=== PATIENT | male | born 1965 | race Caucasian/White ===

== ENCOUNTER 2021-10-23 09:14 | Inpatient (IN) ==
[2021-10-23] MEDS ORDERED: MoRPHine SULFATE 4 MG/ML 1 ML CARP\\VIAL IV STA ×2 (09:35→12:58)
--- NOTE | 2021-10-23 09:40 | Emergency Department Note ---
History of Present Illness General Chief complaint: Shortness of Breath/Dyspnea Time Seen by Provider: 10/23/21 09:25 Source: patient and EMS Mode of arrival: EMS Limitations: physical limitation History of Present Illness Provider complaint: chest pain, shortness of breath Onset (ago): month(s) 1 Location: chest Radiation: non-radiation Treatments prior to arrival: other This is a 56-year-old male who presents due to concern for ongoing chest pain and shortness of breath. Patient states chest pain began over a month ago. Patient does have a history of lung cancer with known metastases to the brain. Per EMS report, stated the patient's last chemo or radiation treatment were in September. Patient states that been his least 2 weeks since he had radiation. Patient is a prior smoker with a history of COPD in addition. Patient does use oxycodone at home daily, and states this was also recently increased however he still has worsening pain. EMS reported to nursing staff that told them he is supposed to start hospice next week. Patient denies fevers, abdominal pain, cough, or rhinorrhea. Patient denies any leg swelling. Patient does have an indwelling port. Pt seen during a time of high acuity and national emergency pandemic while wearing PPE. Home Medications Medication Instructions Recorded Confirmed Type chlorthalidone 25 mg tablet 25 mg PO QAM 10/23/21 10/23/21 History oxycodone 30 mg tablet 30 mg PO .Q4-6H PRN 10/23/21 10/23/21 History prednisone 20 mg tablet 50 mg PO DAILY 10/23/21 10/23/21 History Allergies Allergy/AdvReac Type Severity Reaction Status Date / Time codeine Allergy Unknown unknown Verified 10/23/21 11:23 Past Med/Surg History Medical History Anxiety Brain metastases Chronic obstructive pulmonary disease Coronary artery calcification "noted on CT chest 12/09/20" Depression Diabetes mellitus, type 2 diet controlled Hypertension Lung cancer Small cell lung cancer - dx'ed Sep 2020- and needs port placed for chemo Currently on chemo/XRT Surgical History H/O gastric bypass "x 2" History of mandibular surgery Hx of lymph node excision from leg Family History Father Cancer Stomach Ca Diabetes Heart disease Hypertension Stroke Mother Diabetes Brother Diabetes Other Asthma Emphysema lung Lung disease No known problems Social History Smoking Status: Never smoker Tobacco Type: Cigarettes packs per day: 0.5; Years Smoked: 45; Cigarettes Per Day: 4-5 cigs/day; Second Hand Exposure: No; Do You Dip or Chew Tobacco: No; Hx Alcohol Use: Yes Hx Substance Use: No Preferred Language: British Communication Ability: Effective Visual Impairment: No Limitations Hearing Ability: Normal Exchange Consultant Required: No Beliefs That Will Affect Care: None marital status: Current Living Situation: Family current occupational status: unemployed How many Children do You have: 3 Other Information That Helps Us Care for You: No Feels Safe at Home: Yes Safety Concerns: Feels Safe At This Time Childhood Exposure to Second-Hand Smoke: Yes caffeine: No during the past year weight has: increased > 10 lbs Dental Care, Regularly: No Physical Activity Frequency: Daily Assistive Devices: Walker Review of Systems A total of 10 systems reviewed and were otherwise negative All systems reviewed & are unremarkable except as noted in HPI & below Physical Exam Vital Signs Vital Signs - 24 hr 10/23/21 09:20 10/23/21 09:40 10/23/21 10:26 Temperature 36.8 C Temperature Source Oral Pulse Rate 80 79 Pulse Rate [Right Finger] Pulse Rate from SpO2 Sensor Pulse Rhythm Regular Pulse Rhythm [Right Finger] Pulse Strength Normal Pulse Strength [Right Finger] Respiratory Rate 26 H 18 Respiratory Effort / Characteristics Spontaneous Accessory Muscle Use Moaning Short of Breath Respiratory Depth Normal Respiratory Pattern Regular Tachypnea Blood Pressure 110/71 152/79 H Blood Pressure [Right Arm] Blood Pressure Mean 84 103 Blood Pressure Mean [Right Arm] Blood Pressure Position Sitting Blood Pressure Position [Right Arm] Pulse Oximetry 97 97 95 Oxygen Delivery Method Room Air Room Air Room Air Sepsis Recent Fever Within 48 Hours No Sepsis New/Unexplained Change in Mental Status No Sepsis Action Taken by Nursing No Action Required 10/23/21 10:30 10/23/21 11:00 10/23/21 12:00 Temperature Temperature Source Pulse Rate 82 83 Pulse Rate [Right Finger] 74 Pulse Rate from SpO2 Sensor 82 85 Pulse Rhythm Pulse Rhythm [Right Finger] Regular Pulse Strength Pulse Strength [Right Finger] Normal Respiratory Rate 20 22 18 Respiratory Effort / Characteristics Non-Labored Respiratory Depth Normal Respiratory Pattern Regular Blood Pressure 129/91 150/84 H Blood Pressure [Right Arm] 116/74 Blood Pressure Mean 103 106 Blood Pressure Mean [Right Arm] 88 Blood Pressure Position Blood Pressure Position [Right Arm] Lying Pulse Oximetry 92 95 91 Oxygen Delivery Method Room Air Room Air Room Air Sepsis Recent Fever Within 48 Hours Sepsis New/Unexplained Change in Mental Status Sepsis Action Taken by Nursing GENERAL: alert, unwell appearing, well nourished, no distress, non-toxic EYE EXAM: normal conjunctiva, PERRL and EOM's grossly intact OROPHARYNX: no exudate, no erythema, lips, buccal mucosa, and tongue normal and mucous membranes are moist NECK: supple, no nuchal rigidity, no adenopathy, non-tender LUNGS: Clear to auscultation. Normal chest wall mechanics, no w/r/r, mild tachypnea HEART: no murmurs, S1 normal and S2 normal, pain with palpation to central and l eft chest, port left ant/sup chest wall ABDOMEN: abdomen soft, non-tender, normo-active bowel sounds, no masses, no rebound or guarding. BACK: Back is symmetrical on inspection and there is no deformity, no midline tenderness, no CVA tenderness. SKIN: no rashes and no bruising UPPER EXTREMITIES: upper extremities are grossly normal. FROM, nml pulses b/l. LOWER EXTREMITIES: No pitting edema. FROM, nml pulses b/l. NEURO EXAM: Normal sensorium, cranial nerves II-XII grossly intact, normal spee ch, no gross weakness of arms, no gross weakness of legs. Gross sensation intact. Course Administered Medications Chlorthalidone (Chlorthalidone 25 Mg Tab) 25 mg PO QAM [facility] Stop: 11/23/21 08:59 Last Admin: 10/24/21 08:59 Dose: 25 mg Documented by: [id number] Enoxaparin Sodium (Enoxaparin Inj 120 Mg/0.8 Ml Syr) 111 mg SQ Q12H [facility] Stop: 11/23/21 00:59 Last Admin: 10/24/21 14:43 Dose: 111 mg Documented by: [id number] Admin: 10/24/21 00:59 Dose: 111 mg Documented by: [id number] Fentanyl (Fentanyl 25 Mcg/Hr Tdsy) 25 mcg TD Q3D CAROL Stop: 11/06/21 15:59 Last Admin: 10/23/21 16:16 Dose: 25 mcg Documented by: [id number] Miscellaneous (Check Fentanyl Patch Placement) 1 ea N/A QS [facility] Stop: 11/23/21 00:00 Last Admin: 10/24/21 15:53 Dose: 1 ea Documented by: [id number] Admin: 10/24/21 07:26 Dose: 1 ea Documented by: [id number] Admin: 10/23/21 23:30 Dose: 1 ea Documented by: [id number] Morphine Sulfate (Morphine Sulfate 2 Mg/Ml Carp) 2 mg IV Q4H PRN PRN Reason: Pain Stop: 11/07/21 17:40 Last Admin: 10/24/21 18:04 Dose: 2 mg Documented by: [id number] Oxycodone HCl (Oxycodone Hcl Ir 5 Mg Tab (Immediate Release)) 20 mg PO Q6H PRN PRN Reason: Pain Stop: 11/06/21 21:59 Last Admin: 10/24/21 19:53 Dose: 20 mg Documented by: [id number] Admin: 10/24/21 13:03 Dose: 20 mg Documented by: [id number] Admin: 10/23/21 22:11 Dose: 20 mg Documented by: [id number] Prednisone (Prednisone 50 Mg Tab) 50 mg PO DAILY [facility] Stop: 11/23/21 08:59 Last Admin: 10/24/21 08:59 Dose: 50 mg Documented by: [id number] Discontinued Medications Enoxaparin Sodium (Enoxaparin Inj 120 Mg/0.8 Ml Syr) 120 mg SQ ONE ONE Stop: 10/23/21 13:31 Last Admin: 10/23/21 13:49 Dose: 120 mg Documented by: [id number] Gadobutrol (Gadobutrol 65ml Vial) 11.2 ml IV ONCE ONE Stop: 10/23/21 17:24 Last Admin: 10/23/21 17:23 Dose: 11.2 ml Documented by: [id number] Heparin Sodium (Beef Lung) (Heparin 10 Unit/Ml 5 Ml Flush) Confirm Administered Dose 5 ml FLUSH .STK-MED ONE Stop: 10/24/21 02:11 Last Admin: 10/24/21 03:02 Dose: 5 ml Documented by: [id number] Hydromorphone HCl (Hydromorphone Bolus From [employer] Verifier) 1 mg IV ONE STA Stop: 10/23/21 14:53 Last Admin: 10/23/21 16:01 Dose: Not Given Documented by: [id number] Sodium Chloride (Nss 1000ml) 1,000 mls @ 125 mls/hr IV .Q8H CAROL Stop: 11/22/21 09:44 Last Infusion: 10/24/21 07:10 Dose: 0 mls/hr Documented by: [id number] Admin: 10/23/21 18:51 Dose: 125 mls/hr Documented by: [id number] Infusion: 10/23/21 18:51 Dose: 0 mls/hr Documented by: [id number] Admin: 10/23/21 10:28 Dose: 125 mls/hr Documented by: [id number] Ioversol (Optiray 320 125ml) 120 ml IV ONCE ONE Stop: 10/23/21 11:40 Last Admin: 10/23/21 11:39 Dose: 120 ml Documented by: [id number] Morphine Sulfate (Morphine Sulfate 4 Mg/Ml 1 Ml Carp\\Vial) 4 mg IV NOW STA Stop: 10/23/21 09:36 Last Admin: 10/23/21 10:27 Dose: 4 mg Documented by: [id number] Morphine Sulfate (Morphine Sulfate 4 Mg/Ml 1 Ml Carp\\Vial) 4 mg IV NOW STA Stop: 10/23/21 12:59 Last Admin: 10/23/21 13:05 Dose: 4 mg Documented by: [id number] Oxycodone HCl (Oxycodone Hcl Ir 5 Mg Tab (Immediate Release)) 30 mg PO ONE STA Stop: 10/23/21 15:50 Last Admin: 10/23/21 16:40 Dose: 30 mg Documented by: [id number] Medical Decision Making Differential Diagnosis Differential diagnoses includes but is not limited to acute coronary syndrome, myocardial infarction, pericarditis, pulmonary embolus, aortic dissection, pneumonia, pneumothorax, musculoskeletal, shingles, esophageal. Medical Records Attestation: I reviewed the patient's medical records. Home Medications Current Medication List: was personally reviewed by me Laboratory Data Attestation: I reviewed the patient's lab results. Result diagrams: 10/24/21 01:02 10/24/21 01:02 Lab Results 10/23/21 10/23/21 10/23/21 Range/Units 09:40 09:40 10:21 WBC 6.51 (4.8-10.8) K/uL RBC 4.18 L (4.7-6.1) M/uL Hgb 12.3 L (14.0-18.0) g/dL Hct 36.0 L (42-52) % MCV 86.1 (80-100) fL MCH 29.4 (25-34) pg MCHC 34.2 (32-36) g/dL RDW Std Deviation 49.7 H (36.4-46.3) fL RDW Coeff of Harris 15.7 H (11.5-14.5) % Plt Count 251 (130-400) K/uL MPV 8.9 (7.4-10.4) fL Immature Gran % (Auto) 0.5 % Neut % (Auto) 73.2 % Lymph % (Auto) 16.7 % [place] % (Auto) 8.4 % Eos % (Auto) 0.9 % Baso % (Auto) 0.3 % Neut # (Auto) 4.76 (1.4-6.5) K/uL Lymph # (Auto) 1.09 L (1.2-3.4) K/uL [place] # (Auto) 0.55 (0.11-0.59) K/uL Eos # (Auto) 0.06 (0-0.5) K/uL Baso # (Auto) 0.02 (0-0.2) K/uL Immature Gran # (Auto) 0.03 H (0.00-0.02) K/uL Sodium 134 L (136-145) mmol/L Potassium 3.6 (3.5-5.1) mmol/L Chloride 102 (98-107) mmol/L Carbon Dioxide 22 (21-32) mmol/L Anion Gap 10 (3-11) BUN 21 (6-23) mg/dl Creatinine 0.89 (0.6-1.4) mg/dl Est Cr Clr Drug Dosing Not Reportable Est GFR ( Amer) 110.0 ml/min Est GFR (Non-Af Amer) 94.9 ml/min BUN/Creatinine Ratio 23.6 H (10-20) Glucose 107 H (70-99(Fasting)) mg/dl Calcium 9.4 (8.5-10.1) mg/dl Total Bilirubin 0.7 (0.2-1.0) mg/dl AST 14 (13-39) U/L ALT 10 (7-52) U/L Alkaline Phosphatase 65 (34-104) U/L Troponin I 0.04 (0-0.04) ng/ml B-Natriuretic Peptide 34 (0-100) pg/ml Total Protein 7.0 (6.0-8.3) gm/dl Albumin 4.1 (3.4-5.0) gm/dl Globulin 2.9 (2.5-4.0) gm/dl Albumin/Globulin Ratio 1.4 (0.9-2) Imaging Data Radiologist's Impression: Chest CTA 10/23/21 09:35 CHEST CTA for PULMONARY ARTERIES CT DOSE: 746.84 mGy.cm HISTORY: PE, history of lung cancer, atypical chest pain TECHNIQUE: Multiaxial CT images of the chest were performed following the intravenous administration of contrast to evaluate the pulmonary arteries. Maximal intensity projection images were also obtained. A dose lowering techniq ue was utilized adhering to the principles of ALARA. COMPARISON STUDY: Chest CT 09/30/2021. FINDINGS: A left jugular Port-A-Cath terminates in the distal SVC. Normal caliber thoracic aorta with no evidence for dissection. The heart remains mildly enlarged. Moderate calcified plaque within the coronary arteries. There is a small nonocclusive filling defect seen within a branch point of a right lower lobe segmental/subsegmental pulmonary artery best seen on image 88. This has consistent with a small pulmonary embolus. This is age indeterminate but favors a chronic embolus. No additional filling defects within the remaining pulmonary arteries. Limited views of the upper abdomen demonstrate a normal liver and spleen. Postoperative changes suggesting a prior gastric bypass. Trace left pleural effusion, unchanged. The thyroid gland enhances normally. Normal esophagus. Subcentimeter mediastinal and right hilar lymph nodes do not meet CT criteria for pathologic involvement. Mild left hilar/perihilar soft tissue thickening remains unchanged. This results in mild mass effect along the proximal left pulmonary arteries. This is also similar to the prior study. No suspicious lytic are blastic osseous lesions. Mild diffuse bronchial wall thick ening, left greater than right, unchanged. Mild emphysema. No pneumothorax. Multifocal irregular airspace opacities within the left lung have slightly improved. Dominant left lower lobe opacity currently measures 5 cm, previous measuring 5.7 cm. IMPRESSION: 1. There is a single nonocclusive filling defect seen within a right lower lobe segmental/subsegmental pulmonary. This is consistent with an age-indeterminate pulmonary embolus. 2. Scattered irregular airspace opacities within the left lung have slightly improved. This is nonspecific but could represent post radiation changes. Mild left hilar soft tissue thickening remains unchanged. This may also represent posttreatment changes. This bears watching on future examinations. 3. Trace left pleural effusion, unchanged. 4. The right lung appears clear. ACT 112: Negative or not required by law. Electronically signed by: Jeremy Crawley M.D. 10/23/2021 12:15 PM ECG Data Attestation: I personally reviewed and interpreted this ECG as follows: Indication: + chest pain Rate (beats per minute): 81 Rhythm: + normal sinus ECG Intervals/blocks: + Normal QRS and + Normal QT ECG [place]: + Normal ECG ST segments: + Normal ST segments MDM Narrative An order was placed for continuous cardiac monitoring. The monitor shows a rate of _101__ with _sinus tachycardia__ rhythm. THis is a 56 yo with known metastatic lung ca having recently finished radiation for brain mets with c/o chest pain for several week. Patient did have a CT several weeks ago after an injury to r/o trauma. Patient ill appearing on presentation but VS stable. Labs sent and due to broad ddx given PMHx, pt sent for CT angio chest. This revealed pe which may be subacute. Patient started on lovenox given malignancy. Given persistent pain in this setting and this being a complicated patient with some consideration for palliative care consult in addition, case discussed with hospitalist. All results discussed with pt and at bedside who verbalized understanding and were in agreement with the plan. Impression & Plan Chest pain, Small cell lung cancer in adult, Pulmonary embolism Discharge Plan Visit Data Chief Complaint: Shortness of Breath/Dyspnea ED Provider: Ana Jaramillo Discharge Problem: Chest pain, Small cell lung cancer in adult, Pulmonary embolism Patient Disposition: Admitted As Inpatient Discharge Instructions Interventions: ED Discharge Assessment Last Done: 10/23/21 15:59 Discharge Problem: Chest pain Qualifiers: Chest pain type: unspecified Qualified Code(s): R07.9 - Chest pain, unspecified Pulmonary embolism Qualifiers: Pulmonary embolism type: single subsegmental (without acute cor pulmonale) Qualified Code(s): I26.93 - Single subsegmental pulmonary embolism without acute cor pulmonale
[2021-10-23 09:54] LABS: Basophils # (auto) 0.02 K/uL (0-0.2); Basophils % (auto) 0.3 %; Eosinophils # (auto) 0.06 K/uL (0-0.5); Eosinophils % (auto) 0.9 %; Hemoglobin 12.3 g/dL (14.0-18.0); Immature Granulocytes # (auto) 0.03 K/uL (0.00-0.02); Immature Granulocytes % (auto) 0.5 %; Lymphocytes # (auto) 1.09 K/uL (1.2-3.4); Lymphocytes % (auto) 16.7 %; Mean Corpuscular Hemoglobin 29.4 pg (25-34); Mean Corpuscular Hgb Conc 34.2 g/dL (32-36); Mean Corpuscular Volume 86.1 fL (80-100); Mean Platelet Volume 8.9 fL (7.4-10.4); Monocytes # (auto) 0.55 K/uL (0.11-0.59); Monocytes % (auto) 8.4 %; Neutrophils # (auto) 4.76 K/uL (1.4-6.5); Neutrophils % (auto) 73.2 %; Platelet Count 251 K/uL (130-400); RDW Coefficient of Variation 15.7 % (11.5-14.5); RDW Standard Deviation 49.7 fL (36.4-46.3); Red Blood Count 4.18 M/uL (4.7-6.1); White Blood Count 6.51 K/uL (4.8-10.8)
[2021-10-23 10:17] LABS: Troponin I 0.04 ng/ml (0-0.04)
[2021-10-23] MEDS: SODIUM CHLORIDE 0.9% 1000ML 1,000 ML IV SCH ×2 (10:28→18:51)
[2021-10-23 10:32] LABS: Alanine Aminotransferase 10 U/L (7-52); Albumin Globulin Ratio 1.4 (0.9-2); Albumin Level 4.1 gm/dl (3.4-5.0); Alkaline Phosphatase 65 U/L (34-104); Anion Gap 10 (3-11); Aspartate Aminotransferase 14 U/L (13-39); BUN Creatinine Ratio 23.6 (10-20); Bilirubin,Total 0.7 mg/dl (0.2-1.0); Blood Urea Nitrogen 21 mg/dl (6-23); Calcium 9.4 mg/dl (8.5-10.1); Carbon Dioxide 22 mmol/L (21-32); Chloride 102 mmol/L (98-107); Est GFR (Non-African American) 94.9 ml/min; Globulin 2.9 gm/dl (2.5-4.0); Glucose 107 mg/dl (70-99(Fasting)); Potassium 3.6 mmol/L (3.5-5.1); Sodium 134 mmol/L (136-145)
[2021-10-23] MEDS ORDERED: OPTIRAY 320 125ml IV ONE (11:39)
--- NOTE | 2021-10-23 12:16 | CT Scan Report ---
CHEST CTA for PULMONARY ARTERIES CT DOSE: 746.84 mGy.cm HISTORY: PE, history of lung cancer, atypical chest pain TECHNIQUE: Multiaxial CT images of the chest were performed following the intravenous administration of contrast to evaluate the pulmonary arteries. Maximal intensity projection images were also obtaine d. A dose lowering technique was utilized adhering to the principles of ALARA. COMPARISON STUDY: Chest CT 09/30/2021. FINDINGS: A left jugular Port-A-Cath terminates in the distal SVC. Normal caliber thoracic aorta with no evidence for dissection. The heart remains mildly enlarged. Moderate calcified plaque within the coronary arteries. There is a small nonocclusive filling defect seen within a branch point of a right lower lobe segmental/subsegmental pulmonary artery best seen on image 88. This has consistent with a small pulmonary embolus. This is age indeterminate but favors a chronic embolus. No additional filli ng defects within the remaining pulmonary arteries. Limited views of the upper abdomen demonstrate a normal liver and spleen. Postoperative changes suggesting a prior gastric bypass. Trace left pleural effusion, unchanged. The thyroid gland enhances normally. Normal esophagus. Subcentimeter mediastinal and right hilar lymph nodes do not meet CT criteria for pathologic involvement. Mild left hilar/jarett hilar soft tissue thickening remains unchanged. This results in mild mass effect along the proximal l eft pulmonary arteries. This is also similar to the prior study. No suspicious lytic are blastic osse ous lesions. Mild diffuse bronchial wall thickening, left greater than right, unchanged. Mild emphyse ma. No pneumothorax. Multifocal irregular airspace opacities within the left lung have slightly impro cain. Dominant left lower lobe opacity currently measures 5 cm, previous measuring 5.7 cm. IMPRESSION: 1. There is a single nonocclusive filling defect seen within a right lower lobe segmental/subsegmenta l pulmonary. This is consistent with an age-indeterminate pulmonary embolus. 2. Scattered irregular airspace opacities within the left lung have slightly improved. This is nonspe cific but could represent post radiation changes. Mild left hilar soft tissue thickening remains unch anged. This may also represent posttreatment changes. This bears watching on future examinations. 3. Trace left pleural effusion, unchanged. 4. The right lung appears clear. ACT 112: Negative or not required by law. Electronically signed by: Jeremy Crawley M.D. 10/23/2021 12:15 PM
[2021-10-23] MEDS ORDERED: ENOXAPARIN 1 MG/KG SC STA (12:58)
[2021-10-23] MEDS ORDERED: ENOXAPARIN INJ 120 MG/0.8 ML SYR SQ ONE (13:30)
[2021-10-23] MEDS ORDERED: ENOXAPARIN INJ 120 MG/0.8 ML SYR SQ SCH (13:30)
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
[2021-10-23] MEDS ORDERED: HYDROmorphone Bolus from PCA IV STA (14:52)
[2021-10-23] MEDS ORDERED: ENOXAPARIN 1 MG/KG SQ SCH (14:52)
[2021-10-23] MEDS ORDERED: ACETAMINOPHEN 325 MG TAB PO PRN (14:52)
[2021-10-23] MEDS ORDERED: HYDROmorphone PCA 30 MG/30 ML IV PRN (14:52)
[2021-10-23] MEDS ORDERED: ONDANSETRON INJ 2 MG/ML 2 ML VIAL IV PRN (14:52)
[2021-10-23] MEDS ORDERED: oxyCODONE HCL IR 5 MG TAB (IMMEDIATE RELEASE) PO STA (15:49)
[2021-10-23] MEDS ORDERED: SODIUM CHLORIDE 0.9% 1000ML 1,000 ML IV SCH (16:10)
[2021-10-23] MEDS ORDERED: oxyCODONE HCL IR 30 MG TAB (IMMEDIATE RELEASE) PO PRN ×2 (16:10)
[2021-10-23] MEDS ORDERED: NALOXONE HCL 0.4 MG/1 ML VIAL/CARP IV PRN (16:10)
[2021-10-23] MEDS: fentaNYL 25 MCG/HR TDSY TD SCH (16:16)
[2021-10-23] MEDS ORDERED: GADOBUTROL 65ML VIAL IV ONE (17:23)
--- NOTE | 2021-10-23 18:02 | Magnetic Resonance Report ---
MR brain wo/w con CLINICAL HISTORY: Mets to brain TECHNIQUE: Multiplanar and multisequence MR images of the brain were obtained prior to and following administration of gadolinium contrast. Comparison: Comparison is made to MRI brain 07/27/2021 FINDINGS: No abnormal restricted diffusion is identified. The white matter is unremarkable. The ventricular sys tem is normal in appearance. There is no evidence of acute intraparenchymal hemorrhage. No extra axia l fluid collections are seen. There are no masses, mass effect, or midline shift. No abnormal enhance ment is seen. The corpus callosum, pituitary gland, and cerebellar tonsils appear grossly unremarkab le. Flow voids of the major intracranial arterial vessels are identified. The imaged portions of the para nasal sinuses, mastoid air cells, and orbits are unremarkable. IMPRESSION: No acute abnormalities. Previously noted enhancing cerebellar lesions are no longer seen on today's e xam. ACT 112: Negative or not required by law. Electronically signed by: Gil Albarran M.D. 10/23/2021 6:01 PM
[2021-10-23] MEDS: oxyCODONE HCL IR 5 MG TAB (IMMEDIATE RELEASE) PO PRN (22:11)
[2021-10-23] MEDS: CHECK fentaNYL PATCH PLACEMENT SCH (23:30)
[2021-10-24] MEDS: ENOXAPARIN INJ 120 MG/0.8 ML SYR SQ SCH ×2 (00:59→14:43)
[2021-10-24 01:10] LABS: Hematocrit (blood only) 35.2 % (42-52); Hemoglobin 11.7 g/dL (14.0-18.0); Mean Corpuscular Hemoglobin 29.4 pg (25-34); Mean Corpuscular Hgb Conc 33.2 g/dL (32-36); Mean Corpuscular Volume 88.4 fL (80-100); Mean Platelet Volume 8.6 fL (7.4-10.4); Platelet Count 242 K/uL (130-400); RDW Coefficient of Variation 15.7 % (11.5-14.5); RDW Standard Deviation 51.3 fL (36.4-46.3); Red Blood Count 3.98 M/uL (4.7-6.1); White Blood Count 5.79 K/uL (4.8-10.8)
[2021-10-24 01:29] LABS: Albumin Globulin Ratio 1.4 (0.9-2); Albumin Level 3.8 gm/dl (3.4-5.0); BUN Creatinine Ratio 21.3 (10-20); Bilirubin,Total 0.5 mg/dl (0.2-1.0); Calcium 8.7 mg/dl (8.5-10.1); Creatinine Clr Calc Pharmacy 129.9 ml/min; Est GFR (African American) 114.9 ml/min; Est GFR (Non-African American) 99.2 ml/min; Globulin 2.8 gm/dl (2.5-4.0); Potassium 3.9 mmol/L (3.5-5.1); Total Protein 6.6 gm/dl (6.0-8.3)
--- NOTE | 2021-10-24 06:52 | Electrocardiogram Report ---
Test Reason : Blood Pressure : / mmHG Vent. Rate : 081 BPM Atrial Rate : 081 BPM P-R Int : 146 ms QRS Dur : 078 ms QT Int : 376 ms P-R-T Axes : 066 051 079 degrees QTc Int : 436 ms Poor data quality, interpretation may be adversely affected Normal sinus rhythm Nonspecific T wave abnormality Normal ECG When compared with ECG of 30-SEP-2021 12:09, Premature ventricular complexes are no longer Present Criteria for Septal infarct are no longer Present Confirmed by José Miguel Ventura ([id number]) on 10/24/2021 6:52:09 AM Referred By: REFERRED SELF Confirmed By:José Miguel Ventura
[2021-10-24] MEDS: CHECK fentaNYL PATCH PLACEMENT SCH ×2 (07:26→15:53)
[2021-10-24 07:31] LABS: Estimated Average Glucose 154 mg/dl
[2021-10-24] MEDS: predniSONE 50 MG TAB PO SCH (08:59)
[2021-10-24] MEDS: CHLORTHALIDONE 25 MG TAB PO SCH (08:59)
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
[2021-10-24] MEDS: oxyCODONE HCL IR 5 MG TAB (IMMEDIATE RELEASE) PO PRN ×2 (13:03→19:53)
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
[2021-10-24] MEDS: MoRPHine SULFATE 2 MG/ML CARP IV PRN ×2 (18:04→22:31)
[2021-10-24] MEDS: HEPARIN 100 UNIT/ML 5ML FLUSH FLUSH PRN (22:32)
[2021-10-25] MEDS: CHECK fentaNYL PATCH PLACEMENT SCH ×3 (00:04→16:50)
[2021-10-25] MEDS: ENOXAPARIN INJ 120 MG/0.8 ML SYR SQ SCH ×2 (05:26→18:29)
[2021-10-25] MEDS: HEPARIN 100 UNIT/ML 5ML FLUSH FLUSH PRN ×4 (05:27→22:43)
[2021-10-25] MEDS: MoRPHine SULFATE 2 MG/ML CARP IV PRN ×4 (05:27→22:43)
[2021-10-25 06:29] LABS: Hematocrit (blood only) 35.7 % (42-52); Hemoglobin 12.1 g/dL (14.0-18.0); Mean Corpuscular Hemoglobin 29.5 pg (25-34); Mean Corpuscular Hgb Conc 33.9 g/dL (32-36); Mean Corpuscular Volume 87.1 fL (80-100); Mean Platelet Volume 8.7 fL (7.4-10.4); Platelet Count 239 K/uL (130-400); RDW Standard Deviation 48.4 fL (36.4-46.3); White Blood Count 5.98 K/uL (4.8-10.8)
[2021-10-25 06:57] LABS: BUN Creatinine Ratio 20.3 (10-20); Creatinine Clr Calc Pharmacy 131.6 ml/min; Est GFR (African American) 115.5 ml/min; Est GFR (Non-African American) 99.7 ml/min; Potassium 3.5 mmol/L (3.5-5.1)
[2021-10-25] MEDS: CHLORTHALIDONE 25 MG TAB PO SCH (09:30)
[2021-10-25] MEDS: predniSONE 50 MG TAB PO SCH (09:31)
[2021-10-25] MEDS ORDERED: OPTIRAY 320 100ml IV ONE (12:47)
--- NOTE | 2021-10-25 14:37 | CT Scan Report ---
CT abd pelvis IV con only CLINICAL HISTORY: H/O metastatic disease history of lung cancer. TECHNIQUE: Helical axial images of the abdomen and pelvis were obtained and displayed. Automated dose lowering techniques and/or adjustment according to patient size were utilized for this exam. This e xam was performed with intravenous contrast. COMPARISON: Comparison is made to CT abdomen pelvis 06/08/2031 FINDINGS: Lower chest: No acute abnormality Liver: Unremarkable. No focal lesions are seen. Gallbladder and biliary tree: No calcified gallstones. Normal caliber wall. No intra- or extrahepatic biliary ductal dilation. Pancreas: Unremarkable, no focal lesions. Spleen: Unremarkable. Adrenals: Unremarkable. Kidneys and ureters: Bilateral subcentimeter renal hypodensities are again too small to characterize. Bladder: Unremarkable. Reproductive organs: Unremarkable. Bowel: Unremarkable appearance of the bowel. The appendix is normal. Patient is status post gastric r esection. Lymph nodes Retroperitoneal: Subcentimeter lymph nodes are noted. Mesenteric: Subcentimeter lymph nodes are noted. Pelvic: Unremarkable. Peritoneum: Normal. Vessels: Atherosclerotic calcifications are seen. Abdominal wall: Unremarkable. Bones: Degenerative changes in the visualized spine. IMPRESSION: No acute abnormalities in particular no evidence of recurrent or metastatic disease. ACT 112: Negative or not required by law. Electronically signed by: Gil Albarran M.D. 10/25/2021 2:36 PM
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
[2021-10-25] MEDS: oxyCODONE HCL IR 5 MG TAB (IMMEDIATE RELEASE) PO PRN (19:56)
[2021-10-26] MEDS: CHECK fentaNYL PATCH PLACEMENT SCH ×3 (00:39→16:09)
[2021-10-26] MEDS: ENOXAPARIN INJ 120 MG/0.8 ML SYR SQ SCH ×2 (05:50→18:21)
[2021-10-26] MEDS: HEPARIN 100 UNIT/ML 5ML FLUSH FLUSH PRN ×4 (05:51→20:39)
[2021-10-26] MEDS: MoRPHine SULFATE 2 MG/ML CARP IV PRN ×4 (05:51→20:39)
[2021-10-26] MEDS: oxyCODONE HCL IR 5 MG TAB (IMMEDIATE RELEASE) PO PRN (07:53)
[2021-10-26 08:58] LABS: Hematocrit (blood only) 37.5 % (42-52); Hemoglobin 12.5 g/dL (14.0-18.0); Mean Corpuscular Hemoglobin 29.3 pg (25-34); Mean Corpuscular Hgb Conc 33.3 g/dL (32-36); Mean Corpuscular Volume 87.8 fL (80-100); Mean Platelet Volume 9.2 fL (7.4-10.4); Platelet Count 273 K/uL (130-400); RDW Coefficient of Variation 15.3 % (11.5-14.5); RDW Standard Deviation 49.6 fL (36.4-46.3); Red Blood Count 4.27 M/uL (4.7-6.1)
[2021-10-26 09:16] LABS: Calcium 9.2 mg/dl (8.5-10.1); Est GFR (African American) 106.6 ml/min; Potassium 3.5 mmol/L (3.5-5.1)
[2021-10-26] MEDS: CHLORTHALIDONE 25 MG TAB PO SCH (09:47)
[2021-10-26] MEDS: predniSONE 50 MG TAB PO SCH (09:47)
[2021-10-26] MEDS: fentaNYL 25 MCG/HR TDSY TD SCH (15:54)
--- NOTE | 2021-10-26 18:41 | Hospitalist Progress Note ---
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 This is consistent with an age- indeterminate pulmonary embolus. Scattered irregular airspace opacities within the left lung have slightly improved. This is nonspecific but could represent post radiation changes. Mild left hilar soft tissue thickening remains unchanged. This may also represent posttreatment changes. This bears watching on future examinations. --ECHO: There is subtle small sized anteroseptal wall motion abnormality noted on some views that may be reflective of ectopic beats. Left ventricle systolic function is normal. EF 55 to 60%. Right ventricle is normal in size and function. Mild TR. Mild pulmonary hypertension. Small loculated anterior and right lateral pericardial effusion. --Troponin X 3: Negative Saturating well on room air Continue therapeutic Lovenox. Plan to transition to Eliquis at discharge (2) Exertional shortness of breath: Plan: Likely multifactorial: Lung carcinoma, Pulm embolism Saturating well on room air (3) Primary cancer of left upper lobe of lung: Plan: -follow up with Oncology after discharge -Plan for home hospice (4) Brain metastases: Plan: H/O metastatic disease -repeat imaging of brain here negative for metastatic disease (5) LAD (lymphadenopathy), mediastinal: Plan: (6) Obesity (BMI 30-39.9): Plan: - Hx of gastric bypass - Weight loss of 30lbs since Sep 2020. Weight ~ 260 lbs currently. - Encourage adequate protein intake Positional Vertigo Likely BPPV H/O Head Trauma PT consulted for [facility] normal DVT Px: Lovenox SQ CODE STATUS: DNR/DNI Plan to discharge home with hospice 10/27/21 if hospice and home equipment is arranged (7) Chest pain: (8) Vertigo: Admission and Anticipated Discharge Date Admission Date: October 23, 2021 Anticipated date of discharge: 10/27/21 Subjective Reports ongoing left side chest pain, exertional shortness of breath Physical Exam Physical Exam: No acute distress Respiratory: breathing comfortably on room air, no wheezing/rhonchi/rales Cardiovascular: regular rate and rhythm, no murmurs/rubs/gallops Gastrointestinal (Abdomen): soft, non tender, non distended Musculoskeletal: no edema Neurologic: awake, alert, spontaneously moving extremities Results & Data Results & Data ([facility]) Vital Signs (Past 12 Hours) Vital Signs Temp Pulse Pulse Resp BP BP Pulse Ox 10/26/21 14:00 37.0 C 62 20 145/81 H 95 10/26/21 09:45 129/84 10/26/21 07:25 36.4 C L 76 16 120/80 97 Laboratory Results Short CBC 10/26/21 Range/Units 08:11 WBC 6.20 (4.8-10.8) K/uL Hgb 12.5 L (14.0-18.0) g/dL Hct 37.5 L (42-52) % Plt Count 273 (130-400) K/uL BMP 10/26/21 08:11 Sodium 137 Potassium 3.5 Chloride 101 Carbon Dioxide 27 BUN 23 Creatinine 0.92 Glucose 99 Calcium 9.2 Medications Administered Current Inpatient Medications Acetaminophen (Acetaminophen 325 Mg Tab) 650 mg PO Q4H PRN PRN Reason: Moderate Pain Stop: 11/22/21 14:51 Last Admin: 10/26/21 06:01 Dose: 650 mg Documented by: Chlorthalidone (Chlorthalidone 25 Mg Tab) 25 mg PO QAM CAROL Stop: 11/23/21 08:59 Last Admin: 10/26/21 09:47 Dose: 25 mg Documented by: Enoxaparin Sodium (Enoxaparin Inj 120 Mg/0.8 Ml Syr) 111 mg SQ Q12H CAROL Stop: 11/23/21 00:59 Last Admin: 10/26/21 18:21 Dose: 111 mg Documented by: Fentanyl (Fentanyl 25 Mcg/Hr Tdsy) 25 mcg TD Q3D CAROL Stop: 11/06/21 15:59 Last Admin: 10/26/21 15:54 Dose: 25 mcg Documented by: Heparin Sodium (Porcine) (Heparin 100 Unit/Ml 5ml Flush) 5 ml FLUSH PRN PRN PRN Reason: Flush Stop: 11/23/21 22:01 Last Admin: 10/26/21 14:54 Dose: 5 ml Documented by: Miscellaneous (Fentanyl Patch Remove & Waste) 1 ea N/A Q3D CAROL Stop: 11/25/21 15:58 Last Admin: 10/26/21 15:55 Dose: 1 ea Documented by: Miscellaneous (Check Fentanyl Patch Placement) 1 ea N/A QS CAROL Stop: 11/23/21 00:00 Last Admin: 10/26/21 16:09 Dose: 1 ea Documented by: Morphine Sulfate (Morphine Sulfate 2 Mg/Ml Carp) 2 mg IV Q4H PRN PRN Reason: Pain Stop: 11/07/21 17:40 Last Admin: 10/26/21 14:50 Dose: 2 mg Documented by: Ondansetron HCl (Ondansetron Inj 2 Mg/Ml 2 Ml Vial) 4 mg IV Q4H PRN PRN Reason: Nausea And Vomiting Stop: 11/22/21 14:51 Oxycodone HCl (Oxycodone Hcl Ir 5 Mg Tab (Immediate Release)) 20 mg PO Q6H PRN PRN Reason: Pain Stop: 11/06/21 21:59 Last Admin: 10/26/21 07:53 Dose: 20 mg Documented by: Prednisone (Prednisone 50 Mg Tab) 50 mg PO DAILY [facility] Stop: 11/23/21 08:59 Last Admin: 10/26/21 09:47 Dose: 50 mg Documented by:
[2021-10-27] MEDS: HEPARIN 100 UNIT/ML 5ML FLUSH FLUSH PRN ×2 (00:41→05:36)
[2021-10-27] MEDS: CHECK fentaNYL PATCH PLACEMENT SCH ×2 (00:41→09:00)
[2021-10-27] MEDS: MoRPHine SULFATE 2 MG/ML CARP IV PRN ×3 (00:41→09:54)
[2021-10-27] MEDS: ENOXAPARIN INJ 120 MG/0.8 ML SYR SQ SCH (05:36)
[2021-10-27] MEDS: predniSONE 50 MG TAB PO SCH (09:00)
[2021-10-27] MEDS: CHLORTHALIDONE 25 MG TAB PO SCH (09:00)
[2021-10-27] MEDS ORDERED: fentaNYL 12 MCG/HR TDSY TD SCH (10:30)
[2021-10-27] MEDS ORDERED: ALUMINUM/MAGNESIUM SUSP 30 ML UDC PO STA (11:58)
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
[2021-10-27] MEDS ORDERED: FAMOTIDINE 20 MG TAB PO SCH (12:30)
[2021-10-27] MEDS ORDERED: CHECK fentaNYL PATCH PLACEMENT SCH (16:00)
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
== END 2021-10-27 15:00 | disposition hospice, home (50) | DRG 176 ==
LOC: ED 09:14 → EDINP 13:36 → SUATTDRO 13:36 → 3N 15:59

== ENCOUNTER 2022-05-19 16:05 | Inpatient (IN) ==
--- NOTE | 2022-05-19 16:33 | Emergency Department Note ---
Impression & Plan Acute pancreatitis, Small cell lung cancer in adult, Current smoker, Mass of pancreas, Hepatic metastasis ED Provider Note NAME: KLAUDIA MICHELE AGE: 56 SEX: M : 1965 ARRIVES VIA: Walk-In INFORMANT: [Patient][, ] ED PROVIDER(S): [Rodri Alvarez MD] Chief Complaint: Chest and abdominal pain HPI: Patient presents due to concern for multiple complaints including chest pain and abdominal pain in the setting of a history of left lung small cell carcinoma. The patient does have a prior history of brain metastases but states that those are in remission. The patient dates that his last chemo was several months ago as his lung cancer was not currently active but the patient is pending a biopsy of his pancreas due to a concern for possible pancreatic mass. Patient states that he recently had an MRI of the chest abdomen and pelvis. Patient states that he has had some chest pains that is diffuse and non radiating. Nothing makes it any better or worse. No exertional symptoms nausea or vomiting. The patient states that he lasted about 2 days ago and does have mild diffuse upper abdominal pains. Patient does admit to continuing to smoke but denies any alcohol use. Patient has been taking his morphine 15 mg 4 times daily but without significant improvement in symptoms. Patient states that he did not take his Eliquis today as he is pending this biopsy on Tuesday. Patient most recent brain MRI March 2022 showed no abnormalities and no evidence of recurrent or metastatic disease. The patient did have a CT of the chest ab/pelvis completed April 26, 2022. Patient did have findings that might be consistent with infectious versus inflammatory pneumonitis. There was a new subpleural nodule noted in the left lower lobe. Also a 2.9 cm pancreatic body mass that was new from October 2021. It was thought that this may be metastatic in nature. Patient also did have some upper abdominal lym phadenopathy. ROS: See HPI for pertinent positives and negatives. A total of 10 systems were review ed and otherwise negative. Past medical history: See below Surgical history: See below Social history: See below Physical Exam: GENERAL: NAD, [wearing a mask,] non-toxic. EYE EXAM: Normal conjunctiva. PERRL, no anisocoria and EOM's grossly intact w/o pain. NECK: Supple, no nuchal rigidity, no adenopathy, non-tender. No signs of meningismus. FROM of the neck with good chin to chest and neck extension. No stridor. Chest: Port left chest. No overlying skin changes. LUNGS: Scant expiratory wheezing throughout. Normal chest wall mechanics. HEART: NSR, no MRG. ABDOMEN: Abdomen soft, non-tender, normo-active bowel sounds, no masses, no rebound or guarding. BACK: No CVA TTP. SKIN: No rashes and no bruising. UPPER EXTREMITIES: Upper extremities are grossly normal. LOWER EXTREMITIES: Grossly normal, no edema. NEURO EXAM: A&O x3, cranial nerves II-XII grossly intact, normal speech, moves all 4 extremities. Differential diagnoses: Appendicitis, testicular torsion, infections, diverticulitis, UTI, obstruction, mesenteric ischemia, aortic pathology, inflammatory bowel disease, renal colic, PUD, pancreatitis, biliary pathology, hernia, volvulus, constipation, as well as other pathologies. Cardiac ischemia, aortic dissection, pulmonary embolism, pneumothorax, pneumonia, pericarditis, my ocarditis, esophageal rupture, GERD, cholecystitis, pancreatitis, musculoskeletal, as well as other pathologies. Course: Patient was seen and evaluated the bedside. Full history physical exam was performed. EKG interpreted by me Normal sinus rhythm, rate of 82, normal intervals, normal axis, no ST elevations or T WI. No significant change from comparison EKG October 23, 2021 Imaging Studies: See Below Cardiac monitoring: An order was placed for continuous cardiac monitoring. The monitor shows a rate of 67 with sinus rhythm. MDM: Patient was seen due to concern for abdominal pain and chest pain. Blood work was obtained. The patient was ordered IV fluids pain medication. Patient also did have a chest x-ray ordered along with a CT of the abdomen pelvis. Patient is on Eliquis only not recently taking it today the patient has no signs or stigmata of DVT on exam the patient is not hypoxic nor is he tachypneic nor tachycardic believe PE to be less likely given that he is already being treated. Patient's white count is 4.7 with a hemoglobin of 11. The patient's hemoglobin is relatively chronic and stable as he is run anywhere from 9-12's. Patient's platelet count is normal. Patient's kidney function is unremarkable. Chest x-ray shows his chronic lung cancer. Patient does have some what may be new metastatic findings. The patient CT abdomen pelvis does show concern for possible pancreatitis. Lipase was added. Patient's lipase is elevated at 548. I did speak with the on-call hospitalist Dr. Alonzo and the patient was admitted to the medicine service. Past Med/Surg History Medical History Atrial fibrillation REASON FOR ELIQUIS>DENIES HAVING CARDS Brain metastases Chronic obstructive pulmonary disease Diabetes mellitus, type 2 NO MEDS Dizziness History of COVID-19 ? 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- CHEMO AND RADIATION>NO SURGERY Neuropathy Poor intravenous access Pulmonary embolism "IN MY RT LUNG NOW" Sleep apnea NO DEVICE Surgical History H/O gastric bypass 2014 & REVISED 2017 History of esophagogastroduodenoscopy (EGD) History of mandibular surgery History of tonsillectomy History of tooth extraction History of vascular access device A PORT LEFT CHEST Hx of lymph node excision from leg Family History Father Diabetes Heart disease Cancer Stomach Ca Hypertension Stroke Mother Diabetes Brother Diabetes Other Asthma Emphysema lung Lung disease No family history of adverse response to anesthesia No known problems Social History Smoking Status: Unknown if ever smoked Tobacco Type: Cigarettes packs per day: 0.5; Years Smoked: 45; Cigarettes Per Day: 10 CIGS DAILY; Second Hand Exposure: No; Hx Alcohol Use: Yes Hx Substance Use: No Preferred Language: Hong Konger Communication Ability: Effective Visual Impairment: No Limitations Hearing Ability: Normal 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 Beliefs That Will Affect Care: None marital status: Current Living Situation: Family Current Living Situation Comment: AND GRANDCHILDREN current occupational status: unemployed How many Children do You have: 3 Feels Safe at Home: Yes Childhood Exposure to Second-Hand Smoke: Yes caffeine: No during the past year weight has: increased > 10 lbs Dental Care, Regularly: No Physical Activity Frequency: Daily Assistive Devices: Cane Allergies Allergies Allergy/AdvReac Type Severity Reaction Status Date / Time codeine Allergy Unknown "no idea, Verified 05/19/22 20:23 was told as a child" Home Meds Home Medications Medication Instructions Recorded Confirmed gabapentin 300 mg capsule 300 mg PO .AM & AFTERNOON 12/29/21 05/19/22 lisinopril 20 mg tablet 20 mg PO QAM 01/01/22 05/19/22 meclizine 25 mg tablet 25 mg PO TID PRN Dizziness Or 01/01/22 05/19/22 Vertigo albuterol sulfate 90 mcg/actuation 1 inh inhalation QID PRN Shortness 05/19/22 05/19/22 aerosol inhaler Of Breath Or Wheezing aluminum-mag hydroxide-simethicone 5 ml PO Q6H PRN Gi Upset 05/19/22 05/19/22 400 mg-400 mg-40 mg/5 mL oral susp (Mylanta Maximum Strength) famotidine 20 mg tablet 20 mg PO DAILY 05/19/22 05/19/22 gabapentin 300 mg capsule 600 mg PO HS 05/19/22 05/19/22 morphine 15 mg immediate release 15 mg PO BID 05/19/22 05/19/22 tablet pantoprazole 40 mg tablet,delayed 40 mg PO QAM 05/19/22 05/19/22 release trazodone 50 mg tablet 50 mg PO HS 05/19/22 05/19/22 Previous Rx's Medication Instructions Recorded apixaban 5 mg (74 tabs) tablets in 5 mg PO BID #74 ea 10/27/21 a dose pack (Eliquis) Results & Data (ED) Vital Signs Vital Signs - 24 hr 05/19/22 16:08 05/19/22 17:17 05/19/22 17:17 Temperature 36.9 C Temperature Source Temporal Artery Scan Pulse Rate 105 H 71 Pulse Rate [Radial] 69 Pulse Rhythm Regular Pulse Rhythm [Radial] Respiratory Rate 19 18 18 Respiratory Effort / Characteristics Non-Labored Spontaneous Non-Labored Respiratory Depth Normal Normal Respiratory Pattern Regular Regular Blood Pressure 112/72 Blood Pressure [Right Arm] 94/70 L Blood Pressure Mean 85 Blood Pressure Mean [Right Arm] 78 Blood Pressure Position [Right Arm] Lying Pulse Oximetry 97 95 95 Oxygen Delivery Method Room Air Room Air Sepsis Recent Fever Within 48 Hours No Sepsis New/Unexplained Change in Mental Status N/A Sepsis Action Taken by Nursing No Action Required 05/19/22 21:22 05/19/22 23:35 Temperature Temperature Source Pulse Rate Pulse Rate [Radial] 76 68 Pulse Rhythm Pulse Rhythm [Radial] Regular Respiratory Rate 16 20 Respiratory Effort / Characteristics Non-Labored Respiratory Depth Normal Respiratory Pattern Blood Pressure Blood Pressure [Right Arm] 115/66 97/60 L Blood Pressure Mean Blood Pressure Mean [Right Arm] 82 72 Blood Pressure Position [Right Arm] Lying Pulse Oximetry 95 96 Oxygen Delivery Method Room Air Room Air Sepsis Recent Fever Within 48 Hours Sepsis New/Unexplained Change in Mental Status Sepsis Action Taken by Long Term Medications Current Medication List: was personally reviewed by me Laboratory Data Attestation: I reviewed the patient's lab results. Result diagrams: 05/19/22 17:07 05/19/22 17:07 Lab Results 05/19/22 05/19/22 05/19/22 Range/Units 17:07 17:07 17:07 WBC 4.74 L (4.8-10.8) K/ul RBC 3.76 L (4.63-6.08) M/uL Hgb 11.1 L (14.0-18.0) g/dl POC Hgb (14.0-18.0) g/dl Hct 33.7 L (40.1-51.0) % POC Hct (42-52) % MCV 89.6 (80.0-100.0) fL MCH 29.5 (25.0-34.0) pg MCHC 32.9 (32.0-36.0) g/dL RDW Std Deviation 47.1 H (36.4-46.3) fL RDW Coeff of Harris 14.5 (11.5-14.5) % Plt Count 216 (130-400) K/uL MPV 9.6 (9.4-12.4) fL Immature Gran % (Auto) 0.4 % Neut % (Auto) 72.7 % Lymph % (Auto) 15.6 % Fallon % (Auto) 8.4 % Eos % (Auto) 2.3 % Baso % (Auto) 0.6 % Neut # (Auto) 3.44 (1.4-6.5) K/uL Lymph # (Auto) 0.74 L (1.2-3.4) K/uL Fallon # (Auto) 0.40 (0.24-0.82) K/uL Eos # (Auto) 0.11 (0-0.50) K/uL Baso # (Auto) 0.03 (0-0.2) K/uL Immature Gran # (Auto) 0.02 (0.00-0.02) K/uL PT 12.2 H (9.0-12.0) Seconds INR 1.2 H (0.9-1.1) APTT (21.0-31.0) Seconds PTT Ratio POC Sodium (135-144) mmol/L Sodium 137 (136-145) mmol/L POC Potassium (3.3-5.0) mmol/L Potassium 4.1 (3.5-5.1) mmol/L POC Chloride (101-112) mmol/L Chloride 107 (98-107) mmol/L Carbon Dioxide 23 (21-32) mmol/L POC Total CO2 (24-31) mmol/L Anion Gap 7 (3-11) POC Anion Gap (16-25) mmol/L POC BUN (7-18) mg/dl BUN 9 (6-23) mg/dl Creatinine 0.83 (0.6-1.4) mg/dl POC Creatinine (0.6-1.3) mg/dl Est Cr Clr Drug Dosing Not Reportable Est GFR ( Amer) 113.2 ml/min Est GFR (Non-Af Amer) 97.7 ml/min BUN/Creatinine Ratio 10.8 (10-20) Glucose 90 (70-99(Fasting)) mg/dl POC Glucose (other) (70-99) mg/dl Calcium 8.4 L (8.5-10.1) mg/dl POC Ioniz Calcium Kim (1.12-1.32) mmol/l Magnesium 1.8 (1.7-2.4) mg/dl Total Bilirubin 0.5 (0.2-1.0) mg/dl AST 13 (13-39) U/L ALT 8 (7-52) U/L Alkaline Phosphatase 73 (34-104) U/L Troponin I High Sens 2.6 (0-20) pg/ml Total Protein 5.9 L (6.0-8.3) gm/dl Albumin 3.3 L (3.4-5.0) gm/dl Globulin 2.6 (2.5-4.0) gm/dl Albumin/Globulin Ratio 1.3 (0.9-2) Lipase (11-82) U/L SARS-CoV-2, RNA, NAAT (NEGATIVE) 05/19/22 05/19/22 05/19/22 Range/Units 17:07 17:07 17:12 WBC (4.8-10.8) K/ul RBC (4.63-6.08) M/uL Hgb (14.0-18.0) g/dl POC Hgb 10.9 L (14.0-18.0) g/dl Hct (40.1-51.0) % POC Hct 32 L (42-52) % MCV (80.0-100.0) fL MCH (25.0-34.0) pg MCHC (32.0-36.0) g/dL RDW Std Deviation (36.4-46.3) fL RDW Coeff of Harris (11.5-14.5) % Plt Count (130-400) K/uL MPV (9.4-12.4) fL Immature Gran % (Auto) % Neut % (Auto) % Lymph % (Auto) % Fallon % (Auto) % Eos % (Auto) % Baso % (Auto) % Neut # (Auto) (1.4-6.5) K/uL Lymph # (Auto) (1.2-3.4) K/uL Fallon # (Auto) (0.24-0.82) K/uL Eos # (Auto) (0-0.50) K/uL Baso # (Auto) (0-0.2) K/uL Immature Gran # (Auto) (0.00-0.02) K/uL PT (9.0-12.0) Seconds INR (0.9-1.1) APTT 31.1 H (21.0-31.0) Seconds PTT Ratio 1.1 POC Sodium 139 (135-144) mmol/L Sodium (136-145) mmol/L POC Potassium 4.1 (3.3-5.0) mmol/L Potassium (3.5-5.1) mmol/L POC Chloride 103 (101-112) mmol/L Chloride (98-107) mmol/L Carbon Dioxide (21-32) mmol/L POC Total CO2 23 L (24-31) mmol/L Anion Gap (3-11) POC Anion Gap 18.0 (16-25) mmol/L POC BUN 8 (7-18) mg/dl BUN (6-23) mg/dl Creatinine (0.6-1.4) mg/dl POC Creatinine 0.8 (0.6-1.3) mg/dl Est Cr Clr Drug Dosing Est GFR ( Amer) ml/min Est GFR (Non-Af Amer) ml/min BUN/Creatinine Ratio (10-20) Glucose (70-99(Fasting)) mg/dl POC Glucose (other) 96 (70-99) mg/dl Calcium (8.5-10.1) mg/dl POC Ioniz Calcium Kim 1.13 (1.12-1.32) mmol/l Magnesium (1.7-2.4) mg/dl Total Bilirubin (0.2-1.0) mg/dl AST (13-39) U/L ALT (7-52) U/L Alkaline Phosphatase (34-104) U/L Troponin I High Sens (0-20) pg/ml Total Protein (6.0-8.3) gm/dl Albumin (3.4-5.0) gm/dl Globulin (2.5-4.0) gm/dl Albumin/Globulin Ratio (0.9-2) Lipase 548 H (11-82) U/L SARS-CoV-2, RNA, NAAT (NEGATIVE) 05/19/22 Range/Units 19:00 WBC (4.8-10.8) K/ul RBC (4.63-6.08) M/uL Hgb (14.0-18.0) g/dl POC Hgb (14.0-18.0) g/dl Hct (40.1-51.0) % POC Hct (42-52) % MCV (80.0-100.0) fL MCH (25.0-34.0) pg MCHC (32.0-36.0) g/dL RDW Std Deviation (36.4-46.3) fL RDW Coeff of Harris (11.5-14.5) % Plt Count (130-400) K/uL MPV (9.4-12.4) fL Immature Gran % (Auto) % Neut % (Auto) % Lymph % (Auto) % Fallon % (Auto) % Eos % (Auto) % Baso % (Auto) % Neut # (Auto) (1.4-6.5) K/uL Lymph # (Auto) (1.2-3.4) K/uL Fallon # (Auto) (0.24-0.82) K/uL Eos # (Auto) (0-0.50) K/uL Baso # (Auto) (0-0.2) K/uL Immature Gran # (Auto) (0.00-0.02) K/uL PT (9.0-12.0) Seconds INR (0.9-1.1) APTT (21.0-31.0) Seconds PTT Ratio POC Sodium (135-144) mmol/L Sodium (136-145) mmol/L POC Potassium (3.3-5.0) mmol/L Potassium (3.5-5.1) mmol/L POC Chloride (101-112) mmol/L Chloride (98-107) mmol/L Carbon Dioxide (21-32) mmol/L POC Total CO2 (24-31) mmol/L Anion Gap (3-11) POC Anion Gap (16-25) mmol/L POC BUN (7-18) mg/dl BUN (6-23) mg/dl Creatinine (0.6-1.4) mg/dl POC Creatinine (0.6-1.3) mg/dl Est Cr Clr Drug Dosing Est GFR ( Amer) ml/min Est GFR (Non-Af Amer) ml/min BUN/Creatinine Ratio (10-20) Glucose (70-99(Fasting)) mg/dl POC Glucose (other) (70-99) mg/dl Calcium (8.5-10.1) mg/dl POC Ioniz Calcium Kim (1.12-1.32) mmol/l Magnesium (1.7-2.4) mg/dl Total Bilirubin (0.2-1.0) mg/dl AST (13-39) U/L ALT (7-52) U/L Alkaline Phosphatase (34-104) U/L Troponin I High Sens (0-20) pg/ml Total Protein (6.0-8.3) gm/dl Albumin (3.4-5.0) gm/dl Globulin (2.5-4.0) gm/dl Albumin/Globulin Ratio (0.9-2) Lipase (11-82) U/L SARS-CoV-2, RNA, NAAT NEGATIVE (NEGATIVE) Administered Medications Lactated Ringer's (Lr) 1,000 mls @ 200 mls/hr IV .Q5H ONE Stop: 05/20/22 00:35 Last Admin: 05/19/22 21:17 Dose: 200 mls/hr Documented By: SUNSHINE Heparin Sodium/Dextrose (Heparin Sodium/Dextrose) 25,000 units in 500 mls @ 31 mls/hr IV .Q16H8M CAROL; Protocol Stop: 06/18/22 20:29 Last Admin: 05/19/22 21:18 Dose: 1,550 units/hr, 31 mls/hr Documented By: SUNSHINE Co-signed By: LEYLA Discontinued Medications Acetaminophen (Acetaminophen 500 Mg Tab) 1,000 mg PO NOW STA Stop: 05/19/22 16:47 Last Admin: 05/19/22 17:11 Dose: 1,000 mg Documented By: MCKENNA Heparin Sodium/Dextrose (Heparin Iv Adult Wt-Based Standard *No* Bolus Protocol) 1 each IV Q15M CAROL; Protocol Stop: 06/18/22 20:13 Last Admin: 05/19/22 21:21 Dose: 1 each Documented By: SUNSHINE Sodium Chloride (Nss 1000ml) 1,000 mls @ 999 mls/hr IV .Q1H1M CAROL Stop: 05/19/22 18:00 Last Infusion: 05/19/22 18:31 Dose: 0 mls/hr Documented By: Admin: 05/19/22 17:15 Dose: 999 mls/hr Documented By: MCKENNA Ioversol (Optiray 300 100ml) 93 ml IV ONCE ONE Stop: 05/19/22 17:44 Last Admin: 05/19/22 17:48 Dose: 93 ml Documented By: JC Ioversol (Optiray 300 500ml) 125 ml IV ONCE ONE Stop: 05/19/22 23:33 Last Admin: 05/19/22 23:32 Dose: 112 ml Documented By: JULIUS Ketorolac Tromethamine (Ketorolac Tromethamine 15 Mg/Ml Vial) 15 mg IV NOW ONE Stop: 05/19/22 21:28 Last Admin: 05/19/22 21:32 Dose: 15 mg Documented By: LEYLA Morphine Sulfate (Morphine Sulfate 4 Mg/Ml 1 Ml Carp\\Vial) 4 mg IV NOW STA Stop: 05/19/22 16:47 Last Admin: 05/19/22 17:13 Dose: 4 mg Documented By: [facility] Imaging Data Radiologist's Impression: Abdomen/Pelvis CT 05/19/22 16:46 CT SCAN OF THE ABDOMEN AND PELVIS WITH IV CONTRAST CLINICAL HISTORY: Generalized abdominal pain. Pancreatic cancer. COMPARISON STUDY: Abdominal CT dated 04/26/2022. TECHNIQUE: Following the IV administration of 93 cc of Optiray 300, CT scan of the abdomen and pelvis is performed from the lung bases to the proximal femora. Images are reviewed in the axial, sagittal, and coronal planes. IV contrast was administered without complication. A dose lowering technique was utilized adhering to the principles of ALARA. CT DOSE: 715.34 mGy.cm FINDINGS: Lung bases: The 2 cm infusion port terminates at the cavoatrial junction. The heart is mildly enlarged and without pericardial effusion. There is trace left pleural effusion with associated atelectasis. The lung bases are otherwise clear. Liver: The contrast-enhanced liver is normal in size, contour, and attenuation. There is no intrahepatic biliary ductal dilatation. The hepatic veins and portal veins are patent. There are numerous subtle tiny low-attenuation hepatic lesions scattered throughout both lobes. These measure up to 1.6 cm and are new from 04/26/2022. These are highly suspicious for hepatic metastatic lesions. Gallbladder: Unremarkable. Spleen: Normal in size and attenuation. Pancreas: There is an approximately 3 cm ill-defined lesion in the pancreatic body seen on image #22. This is similar to previous. There the distal pancreas appears edematous and there is mild peripancreatic infiltration and fluid. The pancreatic duct is normal in caliber. 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 The right adrenal gland is normal in appearance. Kidneys: The contrast enhanced kidneys are normal in size and without hydronephrosis. The kidneys enhance symmetrically. Abdominal vasculature: The abdominal aorta is normal in course and caliber noting moderate to advanced atherosclerotic calcification. Stomach and bowel: Postoperative changes consistent with a history of Jeffrey-en-Y gastric bypass surgery. No bowel obstruction is seen. The appendix is well- visualized and normal. Peritoneum: There is no intraperitoneal free air or abdominal ascites. Lymphadenopathy: An enlarged peripancreatic lymph node on image #104 has incr eased in size, measuring up to 2.0 cm (previously measured up to 1.6 cm). A 1.6 cm peripancreatic node on image #146 has also modestly increased in size (previously measured 1.5 cm). Pelvic viscera: The bladder, prostate, and seminal vesicles are normal as visualized. Skeletal structures: The skeletal structures are osteopenic. There is mild to m oderate lumbosacral spondylosis. Large posterior disc bulges are seen at L4-L5 and L5-S1. No lytic or blastic lesions are seen. IMPRESSION: 1. Again seen is an ill-defined mass lesion in the pancreatic body this is similar to the 04/26/2022 examination. This favors a pancreatic metastasis. 2. The pancreatic tail appears edematous with surrounding inflammation and trace fluid. Correlate with clinical findings and serum amylase/lipase levels for evidence of acute pancreatitis. 3. Upper abdominal lymphadenopathy has modestly worsened as compared 04/26/2022. 4. There is evidence of multifocal hepatic metastatic disease. This is new from 04/26/2022. 5. Cardiomegaly and trace left pleural effusion. This is unchanged. 5. Additional findings as above. ACT 112: Negative or not required by law. Electronically signed by: Lexa Escamilla M.D. 05/19/2022 6:07 PM Chest X-Ray 05/19/22 16:46 XR chest 1V portable HISTORY: 56 years-old Male weakness acute weakness COMPARISON: Chest CT 04/26/2022 TECHNIQUE: Portable AP view of the chest FINDINGS: Cardiac silhouette is enlarged. Left subclavian [id number] catheter distal tip terminates within the right atrium. No pneumothorax or overt pulmonary edema. Unchanged small left pleural effusion with left hemidiaphragmatic elevation. Consolidative opacities of the left lung redemonstrated, most pronounced within the apex. Degenerative changes of the shoulders and spine. IMPRESSION: 1. Cardiomegaly without pulmonary edema. 2. Unchanged small left pleural effusion along with left lung consolidative opacities. ACT 112: Negative or not required by law. The above report was generated using voice recognition software. It may contain grammatical, syntax or spelling errors. Electronically signed by: Fredo De La Rosa M.D. 05/19/2022 5:44 PM Discharge Plan Visit Data Chief Complaint: Illness Stated Complaint: LUNG CANCER, PANC CANCER, HEART RACING ED Provider: Rodri Alvarez Discharge Problem: Acute pancreatitis, Small cell lung cancer in adult, Current smoker, Mass of pancreas, Hepatic metastasis Patient Disposition: Admitted As Inpatient Discharge Instructions Interventions: ED Discharge Assessment Last Done: 05/19/22 23:39 Forms Stand Alone Forms: [facility] Prescriptions Prescriptions: No Action gabapentin 300 mg capsule 300 mg PO .AM & AFTERNOON lisinopril 20 mg Tablet 20 mg PO QAM meclizine 25 mg Tablet 25 mg PO TID PRN (Reason: Dizziness Or Vertigo) Eliquis 5 mg (74 tabs) tablets,dose pack 5 mg PO BID Qty: 74 0RF gabapentin 300 mg Capsule 600 mg PO HS morphine 15 mg Tablet 15 mg PO BID Rx Instructions: EXTENDED RELEASE pantoprazole 40 mg tablet,delayed release (DR/EC) 40 mg PO QAM trazodone 50 mg Tablet 50 mg PO HS famotidine 20 mg Tablet 20 mg PO DAILY albuterol sulfate 90 mcg/actuation Hfa Aerosol Inhaler 1 inh INHALATION QID PRN (Reason: Shortness Of Breath Or Wheezing) alum-mag hydroxide-simeth [Mylanta Maximum Strength] 400-400-40 mg/5 mL S uspension 5 ml PO Q6H PRN (Reason: Gi Upset) Referrals Referrals: Mansoor Mcdonald MD [Primary Care Provider] -
[2022-05-19] MEDS ORDERED: ACETAMINOPHEN 500 MG TAB PO STA (16:46)
[2022-05-19] MEDS ORDERED: MoRPHine SULFATE 4 MG/ML 1 ML CARP\\VIAL IV STA (16:46)
[2022-05-19] MEDS ORDERED: SODIUM CHLORIDE 0.9% 1000ML 1,000 ML IV SCH (17:00)
[2022-05-19 17:24] LABS: iSTAT Creatinine 0.8 mg/dl (0.6-1.3); iSTAT Hemoglobin 10.9 g/dl (14.0-18.0); iSTAT Ionized Calcium 1.13 mmol/l (1.12-1.32); iSTAT Potassium 4.1 mmol/L (3.3-5.0)
[2022-05-19 17:35] LABS: Basophils # (auto) 0.03 K/uL (0-0.2); Basophils % (auto) 0.6 %; Eosinophils # (auto) 0.11 K/uL (0-0.50); Eosinophils % (auto) 2.3 %; Hematocrit (blood only) 33.7 % (40.1-51.0); Hemoglobin 11.1 g/dl (14.0-18.0); Immature Granulocytes # (auto) 0.02 K/uL (0.00-0.02); Immature Granulocytes % (auto) 0.4 %; Lymphocytes # (auto) 0.74 K/uL (1.2-3.4); Lymphocytes % (auto) 15.6 %; Mean Corpuscular Hemoglobin 29.5 pg (25.0-34.0); Mean Corpuscular Hgb Conc 32.9 g/dL (32.0-36.0); Mean Corpuscular Volume 89.6 fL (80.0-100.0); Mean Platelet Volume 9.6 fL (9.4-12.4); Monocytes % (auto) 8.4 %; Neutrophils # (auto) 3.44 K/uL (1.4-6.5); Neutrophils % (auto) 72.7 %; Platelet Count 216 K/uL (130-400); RDW Coefficient of Variation 14.5 % (11.5-14.5); RDW Standard Deviation 47.1 fL (36.4-46.3); Red Blood Count 3.76 M/uL (4.63-6.08); White Blood Count 4.74 K/ul (4.8-10.8)
[2022-05-19] MEDS ORDERED: OPTIRAY 300 100mL IV ONE (17:43)
[2022-05-19 17:45] LABS: INR 1.2 (0.9-1.1); Prothrombin Time 12.2 Seconds (9.0-12.0)
--- NOTE | 2022-05-19 17:46 | XRay Report ---
XR chest 1V portable HISTORY: 56 years-old Male weakness acute weakness COMPARISON: Chest CT 04/26/2022 TECHNIQUE: Portable AP view of the chest FINDINGS: Cardiac silhouette is enlarged. Left subclavian [id number] catheter distal tip terminates within t he right atrium. No pneumothorax or overt pulmonary edema. Unchanged small left pleural effusion with left hemidiaphragmatic elevation. Consolidative opacities of the left lung redemonstrated, most pron ounced within the apex. Degenerative changes of the shoulders and spine. IMPRESSION: 1. Cardiomegaly without pulmonary edema. 2. Unchanged small left pleural effusion along with left lung consolidative opacities. ACT 112: Negative or not required by law. The above report was generated using voice recognition software. It may contain grammatical, syntax o r spelling errors. Electronically signed by: Fredo De La Rosa M.D. 05/19/2022 5:44 PM
--- NOTE | 2022-05-19 18:10 | CT Scan Report ---
CT SCAN OF THE ABDOMEN AND PELVIS WITH IV CONTRAST CLINICAL HISTORY: Generalized abdominal pain. Pancreatic cancer. COMPARISON STUDY: Abdominal CT dated 04/26/2022. TECHNIQUE: Following the IV administration of 93 cc of Optiray 300, CT scan of the abdomen and pelvi s is performed from the lung bases to the proximal femora. Images are reviewed in the axial, sagittal , and coronal planes. IV contrast was administered without complication. A dose lowering technique wa s utilized adhering to the principles of ALARA. CT DOSE: 715.34 mGy.cm FINDINGS: Lung bases: The 2 cm infusion port terminates at the cavoatrial junction. The heart is mildly enlarge d and without pericardial effusion. There is trace left pleural effusion with associated atelectasis. The lung bases are otherwise clear. Liver: The contrast-enhanced liver is normal in size, contour, and attenuation. There is no intrahepa tic biliary ductal dilatation. The hepatic veins and portal veins are patent. There are numerous subt le tiny low-attenuation hepatic lesions scattered throughout both lobes. These measure up to 1.6 cm a nd are new from 04/26/2022. These are highly suspicious for hepatic metastatic lesions. Gallbladder: Unremarkable. Spleen: Normal in size and attenuation. Pancreas: There is an approximately 3 cm ill-defined lesion in the pancreatic body seen on image #22. This is similar to previous. There the distal pancreas appears edematous and there is mild peripancr eatic infiltration and fluid. The pancreatic duct is normal in caliber. 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 The right adrenal gland is nor mal in appearance. Kidneys: The contrast enhanced kidneys are normal in size and without hydronephrosis. The kidneys enh ance symmetrically. Abdominal vasculature: The abdominal aorta is normal in course and caliber noting moderate to advance d atherosclerotic calcification. Stomach and bowel: Postoperative changes consistent with a history of Jeffrey-en-Y gastric bypass surger y. No bowel obstruction is seen. The appendix is well-visualized and normal. Peritoneum: There is no intraperitoneal free air or abdominal ascites. Lymphadenopathy: An enlarged peripancreatic lymph node on image #104 has increased in size, measuring up to 2.0 cm (previously measured up to 1.6 cm). A 1.6 cm peripancreatic node on image #146 has also modestly increased in size (previously measured 1.5 cm). Pelvic viscera: The bladder, prostate, and seminal vesicles are normal as visualized. Skeletal structures: The skeletal structures are osteopenic. There is mild to moderate lumbosacral sp ondylosis. Large posterior disc bulges are seen at L4-L5 and L5-S1. No lytic or blastic lesions are s een. IMPRESSION: 1. Again seen is an ill-defined mass lesion in the pancreatic body this is similar to the 04/26/2022 e xamination. This favors a pancreatic metastasis. 2. The pancreatic tail appears edematous with surrounding inflammation and trace fluid. Correlate wit h clinical findings and serum amylase/lipase levels for evidence of acute pancreatitis. 3. Upper abdominal lymphadenopathy has modestly worsened as compared 04/26/2022. 4. There is evidence of multifocal hepatic metastatic disease. This is new from 04/26/2022. 5. Cardiomegaly and trace left pleural effusion. This is unchanged. 5. Additional findings as above. ACT 112: Negative or not required by law. Electronically signed by: Lexa Escamilla M.D. 05/19/2022 6:07 PM
[2022-05-19 18:12] LABS: Troponin I High Sensitivity 2.6 pg/ml (0-20)
[2022-05-19 18:15] LABS: Alanine Aminotransferase 8 U/L (7-52); Albumin Globulin Ratio 1.3 (0.9-2); Albumin Level 3.3 gm/dl (3.4-5.0); Alkaline Phosphatase 73 U/L (34-104); Anion Gap 7 (3-11); Aspartate Aminotransferase 13 U/L (13-39); BUN Creatinine Ratio 10.8 (10-20); Bilirubin,Total 0.5 mg/dl (0.2-1.0); Blood Urea Nitrogen 9 mg/dl (6-23); Calcium 8.4 mg/dl (8.5-10.1); Carbon Dioxide 23 mmol/L (21-32); Chloride 107 mmol/L (98-107); Est GFR (African American) 113.2 ml/min; Est GFR (Non-African American) 97.7 ml/min; Globulin 2.6 gm/dl (2.5-4.0); Glucose 90 mg/dl (70-99(Fasting)); Magnesium 1.8 mg/dl (1.7-2.4); Potassium 4.1 mmol/L (3.5-5.1); Sodium 137 mmol/L (136-145); Total Protein 5.9 gm/dl (6.0-8.3)
[2022-05-19] MEDS ORDERED: LACTATED RINGER'S 1,000 ML IV ONE (19:36)
[2022-05-19] MEDS ORDERED: PROMETHAZINE HCL 12.5 MG in SODIUM CHLORIDE 0.9% 50 ML IV PRN (20:20)
[2022-05-19] MEDS ORDERED: oxyCODONE HCL IR 5 MG TAB (IMMEDIATE RELEASE) PO PRN (20:20)
--- NOTE | 2022-05-19 20:22 | History & Physical Report ---
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 hx COPD, chronic smoker's cough symptoms hypertension, BP on the lower side DM2 diet-controlled, off medication since gastric bypass, well-controlled as of recent hemoglobin A1c of 6.13 Jan 2022 chronic anemia, hemoglobin at baseline chronic pain on narcotics ongoing tobacco abuse GMF Analgesia, bowel rest, IVF GI consult Re: Pancreatitis Hold Eliquis in anticipation of any diagnostic procedure inpatient. IV heparin while Eliquis on hold Nicotine patch as needed DVT prophylaxis with IV heparin Full code Text document was generated using [employer] voice recognition software. It may contain grammatical or spelling errors. Kindly contact undersigned for clarification of any documentation item in question. History of Present Illness Chief Complaint: Worsening chest pain/abdominal pain Primary Care Provider: Mansoor Mcdonald MD History obtained from patient and records. 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 Last confinement October 2021 for pulm embolism. Patient discharged on Eliquis. Outpatient CT chest abdomen pelvis requested by oncology provider as follow-up surveillance study for SCLC resulted 3 weeks ago. 1. Subtle nodular groundglass densities within the right upper lobe are suggestive of an infectious or inflammatory pneumonitis. 2. Mild progression of the groundglass and consolidative left perihilar, left apical and superior segment left lower lobe opacities which are likely posttreatment related however a superimposed infectious or inflammatory pneumonitis would be difficult to exclude. 3. There is a new suspicious subpleural 2.7 cm nodule within the left lower lobe with a 6 mm solid nodular component. Attention at follow-up recommended. 4. 2.9 cm pancreatic body mass, new from 10/25/2021. Based on the time interval, metastatic disease is the primary differential consideration with a primary pancreatic lesion considered less likely. 5. New pathologic upper abdominal lymphadenopathy is also suspicious for metastatic disease. Oncology provider referred patient to GI specialist regarding pancreatic body mass. Outpatient EGD/EUS/possible endoscopic ultrasound directed transgastric ERCP given gastric bypass history contemplated at [facility] 05/21/2022. Patient instructed to hold Eliquis to be held 2 days prior to procedure. 2 weeks ago, patient had worsening pleuritic chest pain with shortness of breath. No unusual cough symptoms. Patient compliant with home medications. Last week, patient experienced progressively worsening achy left-sided abdominal discomfort without black/bloody stools. Usual headache symptoms. Patient consulted ER for evaluation of symptoms. Medical History as above Surgical History : Gastric bypass, mandibular fracture surgery, carpal tunnel surgery, dental surgery Family History : COPD, heart disease, DM, stroke Personal/Social history : 1/2 pack daily, no EtOH intake, disabled Allergies Allergy/AdvReac Type Severity Reaction Status Date / Time codeine Allergy Unknown "no idea, Verified 05/19/22 20:23 was told as a child" Home Medications Medication Instructions Recorded Confirmed Type apixaban 5 mg (74 tabs) tablets in 5 mg PO BID #74 ea 10/27/21 05/19/22 Rx a dose pack (Eliquis) gabapentin 300 mg capsule 300 mg PO .AM & AFTERNOON 12/29/21 05/19/22 History lisinopril 20 mg tablet 20 mg PO QAM 01/01/22 05/19/22 History meclizine 25 mg tablet 25 mg PO TID PRN Dizziness Or 01/01/22 05/19/22 History Vertigo albuterol sulfate 90 mcg/actuation 1 inh inhalation QID PRN Shortness 05/19/22 05/19/22 History aerosol inhaler Of Breath Or Wheezing aluminum-mag hydroxide-simethicone 5 ml PO Q6H PRN Gi Upset 05/19/22 05/19/22 History 400 mg-400 mg-40 mg/5 mL oral susp (Mylanta Maximum Strength) famotidine 20 mg tablet 20 mg PO DAILY 05/19/22 05/19/22 History gabapentin 300 mg capsule 600 mg PO HS 05/19/22 05/19/22 History morphine 15 mg immediate release 15 mg PO BID 05/19/22 05/19/22 History tablet pantoprazole 40 mg tablet,delayed 40 mg PO QAM 05/19/22 05/19/22 History release trazodone 50 mg tablet 50 mg PO HS 05/19/22 05/19/22 History Past Med/Surg History Medical History Atrial fibrillation REASON FOR ELIQUIS>DENIES HAVING CARDS Brain metastases Chronic obstructive pulmonary disease Diabetes mellitus, type 2 NO MEDS Dizziness History of COVID-19 ? 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- CHEMO AND RADIATION>NO SURGERY Neuropathy Poor intravenous access Pulmonary embolism "IN MY RT LUNG NOW" Sleep apnea NO DEVICE Surgical History H/O gastric bypass 2014 & REVISED 2017 History of esophagogastroduodenoscopy (EGD) History of mandibular surgery History of tonsillectomy History of tooth extraction History of vascular access device A PORT LEFT CHEST Hx of lymph node excision from leg Family History Father Diabetes Heart disease Cancer Stomach Ca Hypertension Stroke Mother Diabetes Brother Diabetes Other Asthma Emphysema lung Lung disease No family history of adverse response to anesthesia No known problems Social History Smoking Status: Current every day smoker Tobacco Type: Cigarettes packs per day: 0.5; Years Smoked: 45; Cigarettes Per Day: 5; Second Hand Exposure: No; Hx Alcohol Use: No Hx Substance Use: No Preferred Language: Nigerian Communication Ability: Effective Visual Impairment: No Limitations Hearing Ability: Normal Tariff Compiler Required: No Beliefs That Will Affect Care: None marital status: Current Living Situation: Family Current Living Situation Comment: and grandson current occupational status: unemployed How many Children do You have: 3 Other Information That Helps Us Care for You: No Feels Safe at Home: Yes Safety Concerns: Feels Safe At This Time Childhood Exposure to Second-Hand Smoke: Yes caffeine: No during the past year weight has: increased > 10 lbs Dental Care, Regularly: No Physical Activity Frequency: Daily Assistive Devices: Cane and Walker Review of Systems Review of Systems: As per HPI, all other systems reviewed and negative Physical Exam Physical Exam: GENERAL: Comfortable, episodic lethargy, obese, no respiratory distress SKIN: Pallor, warm HEENT: Alopecia, pale palpebral conjunctivae, no ptosis, dry buccal mucosa NECK : Supple, short neck, no tenderness CHEST : Decreased breath sounds, occasional expiratory wheezes, no tenderness HEART : RRR, no obvious murmurs ABDOMEN: Some distention, upper abdominal tenderness EXTREMITIES : No LE swelling/tenderness, no other conspicuous deformities noted NEUROLOGIC : Coherent, episodic lethargy, no facial asymmetry, no other gross focality Results & Data Results & Data ([facility]) Vital Signs (Past 12 Hours) Vital Signs Temp Pulse Pulse Resp BP BP Pulse Ox 05/19/22 17:17 71 18 95 05/19/22 17:17 69 18 94/70 L 95 05/19/22 16:08 36.9 C 105 H 19 112/72 97 O2 Del Method 05/19/22 17:17 Room Air 05/19/22 17:17 Room Air 05/19/22 16:08 Laboratory Results Laboratory Results WBC 4.74 K/ul (4.8-10.8) L 05/19/22 17:07 RBC 3.76 M/uL (4.63-6.08) L 05/19/22 17:07 Hgb 11.1 g/dl (14.0-18.0) L 05/19/22 17:07 POC Hgb 10.9 g/dl (14.0-18.0) L 05/19/22 17:12 Hct 33.7 % (40.1-51.0) L 05/19/22 17:07 POC Hct 32 % (42-52) L 05/19/22 17:12 MCV 89.6 fL (80.0-100.0) 05/19/22 17:07 MCH 29.5 pg (25.0-34.0) 05/19/22 17:07 MCHC 32.9 g/dL (32.0-36.0) 05/19/22 17:07 RDW Std Deviation 47.1 fL (36.4-46.3) H 05/19/22 17:07 RDW Coeff of Harris 14.5 % (11.5-14.5) 05/19/22 17:07 Plt Count 216 K/uL (130-400) 05/19/22 17:07 MPV 9.6 fL (9.4-12.4) 05/19/22 17:07 Immature Gran % (Auto) 0.4 % 05/19/22 17:07 Neut % (Auto) 72.7 % 05/19/22 17:07 Lymph % (Auto) 15.6 % 05/19/22 17:07 [place] % (Auto) 8.4 % 05/19/22 17:07 Eos % (Auto) 2.3 % 05/19/22 17:07 Baso % (Auto) 0.6 % 05/19/22 17:07 Neut # (Auto) 3.44 K/uL (1.4-6.5) 05/19/22 17:07 Lymph # (Auto) 0.74 K/uL (1.2-3.4) L 05/19/22 17:07 [place] # (Auto) 0.40 K/uL (0.24-0.82) 05/19/22 17:07 Eos # (Auto) 0.11 K/uL (0-0.50) 05/19/22 17:07 Baso # (Auto) 0.03 K/uL (0-0.2) 05/19/22 17:07 Immature Gran # (Auto) 0.02 K/uL (0.00-0.02) 05/19/22 17:07 PT 12.2 Seconds (9.0-12.0) H 05/19/22 17:07 INR 1.2 (0.9-1.1) H 05/19/22 17:07 POC Sodium 139 mmol/L (135-144) 05/19/22 17:12 Sodium 137 mmol/L (136-145) 05/19/22 17:07 POC Potassium 4.1 mmol/L (3.3-5.0) 05/19/22 17:12 Potassium 4.1 mmol/L (3.5-5.1) 05/19/22 17:07 POC Chloride 103 mmol/L (101-112) 05/19/22 17:12 Chloride 107 mmol/L (98-107) 05/19/22 17:07 Carbon Dioxide 23 mmol/L (21-32) 05/19/22 17:07 POC Total CO2 23 mmol/L (24-31) L 05/19/22 17:12 Anion Gap 7 (3-11) 05/19/22 17:07 POC Anion Gap 18.0 mmol/L (16-25) 05/19/22 17:12 POC BUN 8 mg/dl (7-18) 05/19/22 17:12 BUN 9 mg/dl (6-23) 05/19/22 17:07 Creatinine 0.83 mg/dl (0.6-1.4) 05/19/22 17:07 POC Creatinine 0.8 mg/dl (0.6-1.3) 05/19/22 17:12 Est Cr Clr Drug Dosing Not Reportable 05/19/22 17:07 Est GFR ( Amer) 113.2 ml/min 05/19/22 17:07 Est GFR (Non-Af Amer) 97.7 ml/min 05/19/22 17:07 BUN/Creatinine Ratio 10.8 (10-20) 05/19/22 17:07 Glucose 90 mg/dl (70-99(Fasting)) 05/19/22 17:07 POC Glucose (other) 96 mg/dl (70-99) 05/19/22 17:12 Calcium 8.4 mg/dl (8.5-10.1) L 05/19/22 17:07 POC Ioniz Calcium Kim 1.13 mmol/l (1.12-1.32) 05/19/22 17:12 Magnesium 1.8 mg/dl (1.7-2.4) 05/19/22 17:07 Total Bilirubin 0.5 mg/dl (0.2-1.0) 05/19/22 17:07 AST 13 U/L (13-39) 05/19/22 17:07 ALT 8 U/L (7-52) 05/19/22 17:07 Alkaline Phosphatase 73 U/L (34-104) 05/19/22 17:07 Troponin I High Sens 2.6 pg/ml (0-20) 05/19/22 17:07 Total Protein 5.9 gm/dl (6.0-8.3) L 05/19/22 17:07 Albumin 3.3 gm/dl (3.4-5.0) L 05/19/22 17:07 Globulin 2.6 gm/dl (2.5-4.0) 05/19/22 17:07 Albumin/Globulin Ratio 1.3 (0.9-2) 05/19/22 17:07 Lipase 548 U/L (11-82) H 05/19/22 17:07 SARS-CoV-2, RNA, NAAT NEGATIVE (NEGATIVE) 05/19/22 19:00 Impressions Abdomen/Pelvis CT 05/19/22 16:46 CT SCAN OF THE ABDOMEN AND PELVIS WITH IV CONTRAST CLINICAL HISTORY: Generalized abdominal pain. Pancreatic cancer. COMPARISON STUDY: Abdominal CT dated 04/26/2022. TECHNIQUE: Following the IV administration of 93 cc of Optiray 300, CT scan of the abdomen and pelvis is performed from the lung bases to the proximal femora. Images are reviewed in the axial, sagittal, and coronal planes. IV contrast was administered without complication. A dose lowering technique was utilized adhering to the principles of ALARA. CT DOSE: 715.34 mGy.cm FINDINGS: Lung bases: The 2 cm infusion port terminates at the cavoatrial junction. The heart is mildly enlarged and without pericardial effusion. There is trace left pleural effusion with associated atelectasis. The lung bases are otherwise clear. Liver: The contrast-enhanced liver is normal in size, contour, and attenuation. There is no intrahepatic biliary ductal dilatation. The hepatic veins and portal veins are patent. There are numerous subtle tiny low-attenuation hepatic lesions scattered throughout both lobes. These measure up to 1.6 cm and are new from 04/26/2022. These are highly suspicious for hepatic metastatic lesions. Gallbladder: Unremarkable. Spleen: Normal in size and attenuation. Pancreas: There is an approximately 3 cm ill-defined lesion in the pancreatic body seen on image #22. This is similar to previous. There the distal pancreas appears edematous and there is mild peripancreatic infiltration and fluid. The pancreatic duct is normal in caliber. 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 The right adrenal gland is normal in appearance. Kidneys: The contrast enhanced kidneys are normal in size and without hydronephrosis. The kidneys enhance symmetrically. Abdominal vasculature: The abdominal aorta is normal in course and caliber noting moderate to advanced atherosclerotic calcification. Stomach and bowel: Postoperative changes consistent with a history of Jeffrey-en-Y gastric bypass surgery. No bowel obstruction is seen. The appendix is well- visualized and normal. Peritoneum: There is no intraperitoneal free air or abdominal ascites. Lymphadenopathy: An enlarged peripancreatic lymph node on image #104 has increased in size, measuring up to 2.0 cm (previously measured up to 1.6 cm). A 1.6 cm peripancreatic node on image #146 has also modestly increased in size (previously measured 1.5 cm). Pelvic viscera: The bladder, prostate, and seminal vesicles are normal as visualized. Skeletal structures: The skeletal structures are osteopenic. There is mild to moderate lumbosacral spondylosis. Large posterior disc bulges are seen at L4-L5 and L5-S1. No lytic or blastic lesions are seen. IMPRESSION: 1. Again seen is an ill-defined mass lesion in the pancreatic body this is similar to the 04/26/2022 examination. This favors a pancreatic metastasis. 2. The pancreatic tail appears edematous with surrounding inflammation and trace fluid. Correlate with clinical findings and serum amylase/lipase levels for evidence of acute pancreatitis. 3. Upper abdominal lymphadenopathy has modestly worsened as compared 04/26/2022. 4. There is evidence of multifocal hepatic metastatic disease. This is new from 04/26/2022. 5. Cardiomegaly and trace left pleural effusion. This is unchanged. 5. Additional findings as above. ACT 112: Negative or not required by law. Electronically signed by: Lexa Escamilla M.D. 05/19/2022 6:07 PM Chest X-Ray 05/19/22 16:46 XR chest 1V portable HISTORY: 56 years-old Male weakness acute weakness COMPARISON: Chest CT 04/26/2022 TECHNIQUE: Portable AP view of the chest FINDINGS: Cardiac silhouette is enlarged. Left subclavian [id number] catheter distal tip terminates within the right atrium. No pneumothorax or overt pulmonary edema. Unchanged small left pleural effusion with left hemidiaphragmatic elevation. Consolidative opacities of the left lung redemonstrated, most pronounced within the apex. Degenerative changes of the shoulders and spine. IMPRESSION: 1. Cardiomegaly without pulmonary edema. 2. Unchanged small left pleural effusion along with left lung consolidative opacities. ACT 112: Negative or not required by law. The above report was generated using voice recognition software. It may contain grammatical, syntax or spelling errors. Electronically signed by: Fredo De La Rosa M.D. 05/19/2022 5:[address] chest initial read: Negative for PE Infiltration of the soft tissue material into the perihilar parenchyma of the left lung is noted. There is narrowing of the interlobar arteryand a narrowed appearance of lobar and segmental bronchi. This process appears progressive when compared with the prior study. This mayreflect infiltrating malignancy. Superimposed pneumonia is not excluded. Definitive evaluation is recommended Small left pleural effusion and either small pericardial fluid or loculated pleural fluid at the mediastinal pleural surface adjacent to the left heart border is noted Heterogeneous focus of decreased at tenuation in the quadrate lobe of the liver mayreflect hepatic metastatic disease in the correct clinical setting versus asymmetric fattyinfiltration. EKG as per my interpretation : 80, NSR, normal axis, T wave flattening lateral leads Code Status & VTE Plan VTE Prophylaxis Plan VTE Prophylaxis will be ordered: Yes (1) Acute pancreatitis Acute pancreatitis complication: unspecified Pancreatitis type: unspecified pancreatitis type Qualified Code(s): K85.90 - Acute pancreatitis without necrosis or infection, unspecified
[2022-05-19] MEDS: HEPARIN SODIUM/DEXTROSE 25,000 UNITS/500 ML BAG IV SCH (21:18)
[2022-05-19] MEDS: Heparin IV Adult Wt-Based Standard *NO* Bolus Protocol IV SCH (21:21)
[2022-05-19] MEDS ORDERED: KETOROLAC TROMETHAMINE 15 MG/ML VIAL IV ONE (21:27)
[2022-05-19 21:30] LABS: Partial Thromboplastin Ratio 1.1; Partial Thromboplastin Time 31.1 Seconds (21.0-31.0)
[2022-05-19] MEDS ORDERED: OPTIRAY 300 500mL IV ONE (23:32)
[2022-05-19] MEDS ORDERED: CARBOHYDRATES FOR HYPOGLYCEMIA PO PRN (23:55)
[2022-05-19] MEDS ORDERED: GLUCAGON FOR INJ 1 MG VIAL SQ PRN (23:55)
[2022-05-19] MEDS ORDERED: ACETAMINOPHEN 325 MG TAB PO PRN (23:55)
[2022-05-19] MEDS ORDERED: GLUCOSE 10 TAB/TUBE PO PRN (23:55)
[2022-05-19] MEDS ORDERED: GLUCOSE 40% GEL 15 GM TUBE PO PRN (23:55)
[2022-05-20] MEDS ORDERED: MELATONIN 3 MG TAB PO PRN (00:07)
[2022-05-20] MEDS: Heparin IV Adult Wt-Based Standard *NO* Bolus Protocol IV SCH (00:07)
[2022-05-20] MEDS ORDERED: HEPARIN 100 UNIT/ML 5ML FLUSH FLUSH PRN (00:10)
[2022-05-20] MEDS: MoRPHine SULFATE CR 15 MG TABCR PO SCH ×3 (00:27→20:47)
[2022-05-20] MEDS: LACTATED RINGER'S 1,000 ML IV SCH ×5 (00:27→20:45)
[2022-05-20] MEDS: GABAPENTIN 300 MG CAP PO SCH ×4 (00:27→20:47)
[2022-05-20] MEDS: INSULIN ASPART PER UNIT SC SCH ×5 (00:57→18:20)
[2022-05-20 04:08] LABS: Basophils # (auto) 0.02 K/uL (0-0.2); Basophils % (auto) 0.5 %; Eosinophils # (auto) 0.13 K/uL (0-0.50); Hematocrit (blood only) 33.2 % (40.1-51.0); Hemoglobin 10.9 g/dl (14.0-18.0); Immature Granulocytes # (auto) 0.02 K/uL (0.00-0.02); Immature Granulocytes % (auto) 0.5 %; Lymphocytes # (auto) 1.11 K/uL (1.2-3.4); Lymphocytes % (auto) 25.9 %; Mean Corpuscular Hemoglobin 29.3 pg (25.0-34.0); Mean Corpuscular Hgb Conc 32.8 g/dL (32.0-36.0); Mean Corpuscular Volume 89.2 fL (80.0-100.0); Mean Platelet Volume 9.6 fL (9.4-12.4); Monocytes # (auto) 0.32 K/uL (0.24-0.82); Monocytes % (auto) 7.5 %; Neutrophils # (auto) 2.69 K/uL (1.4-6.5); Neutrophils % (auto) 62.6 %; Platelet Count 215 K/uL (130-400); RDW Coefficient of Variation 14.6 % (11.5-14.5); RDW Standard Deviation 46.6 fL (36.4-46.3); Red Blood Count 3.72 M/uL (4.63-6.08); White Blood Count 4.29 K/ul (4.8-10.8)
[2022-05-20 04:31] LABS: Albumin Globulin Ratio 1.2 (0.9-2); Albumin Level 2.8 gm/dl (3.4-5.0); BUN Creatinine Ratio 11.2 (10-20); Bilirubin,Total 0.5 mg/dl (0.2-1.0); Calcium 8.2 mg/dl (8.5-10.1); Creatinine Clr Calc Pharmacy 111.4 ml/min; Est GFR (Non-African American) 94.9 ml/min; Globulin 2.4 gm/dl (2.5-4.0); Total Protein 5.2 gm/dl (6.0-8.3)
[2022-05-20 04:40] LABS: Partial Thromboplastin Ratio 2.6
[2022-05-20 05:46] LABS: Partial Thromboplastin Time 72.7 Seconds (21.0-31.0)
--- NOTE | 2022-05-20 08:37 | CT Scan Report ---
CT angio chest PE protocol CT DOSE: 748.66 mGy.cm HISTORY: 56 years-old Male with cp, sob, hx CA. Acute shortness of breath in a patient with history of lung cancer. TECHNIQUE: Multiple CTA images of the chest were obtained after the intravenous administration of 112 ml Optiray. Coronal and sagittal MIPS were obtained from the axial data set and were submitted for review. All measurements were obtained according to NASCET criteria. A dose lowering technique was u tilized adhering to the principles of ALARA. COMPARISON: CT abdomen and pelvis of same day, chest CT 12/09/2020 and 04/26/2022. FINDINGS: CTA: Mild cardiomegaly with small pericardial effusion. Moderate to extensive coronary artery calcificatio ns. Atherosclerosis of the thoracic aorta with 50% luminal narrowing of the innominate artery. Left I J [id number] catheter distal tip terminates within the right atrium. Reflux of contrast into the I VC and hepatic veins. Satisfactory opacification of the pulmonary arterial tree. There are no filling defects identified to suggest thromboembolic disease. CT CHEST: No thyroid nodule or definite new thoracic lymphadenopathy. Small left pleural effusion. There is no pneumothorax. Mild upper lung zone predominant paraseptal emphysema with bronchial wall thickening solano ggestive of bronchitis. 5 mm solid nodule of the right lung apex on image 214 is new from prior. Ther e is improved aeration of the right upper lobe compared to the prior study. There is progressive irre gular consolidation with intermixed groundglass opacities within the left perihilar distributions, ap ical posterior segment of the left upper lobe and superior segment left lower lobe, this results in n arrowing of the adjacent bronchi and pulmonary arterial branches. The previously noted 2.7 cm subsoli d nodular density within the left lower lobe has either resolved or is obscured by adjacent consolida tion. Pathologic lymph nodes of the upper abdomen are again noted along with a mass within the pancreatic b luther. Hepatic metastatic disease. Prior Jeffrey-en-Y gastric bypass. Unremarkable soft tissues. No acute fracture or destructive bone lesion. IMPRESSION: 1. Mild cardiomegaly without pulmonary emboli identified. 2. Progression of the consolidative opacities with intermixed groundglass densities within the left p erihilar, left apical upper lobe and superior segment left lower lobe with resultant narrowing of the adjacent bronchi and pulmonary arteries. Findings may represent an infectious or inflammatory proces s, however follow-up is needed to exclude malignancy. 3. Small left pleural effusion. 4. Mild emphysema with bronchial wall thickening suggestive of bronchitis. 5. There is a new 5 mm solid nodule of the right upper lobe. 6. Upper abdominal metastatic disease is further discussed on the CT abdomen and pelvis study of same day. ACT 112: Negative or not required by law. The above report was generated using voice recognition software. It may contain grammatical, syntax o r spelling errors. Dictated: 05/20/2022 7:02 AM Transcribed: 05/20/2022 7:40 AM Jessica [id number] [email or web address] Electronically signed by: Fredo De La Rosa M.D. 05/20/2022 8:35 AM
[2022-05-20] MEDS: lisinopril 5 MG TAB PO SCH (09:06)
--- NOTE | 2022-05-20 09:28 | Gastrointestinal Consultation ---
Date of Consultation May 20, 2022 Assessment & Plan (1) Acute pancreatitis: (2) Mass of pancreas: (3) Hepatic metastasis: (4) Small cell lung cancer in adult: Pt is a 56 yo male w hx of RYGB, SC lung ca w brain and suspected liver, pancreas mets currently admitted w CP, abd pain symptoms. On eval noted to have normal LFTs, but elevated lipase and CT evidence of peripancreatic edema & inflammation likely related to pancreatitis. - LR @ 200ml/hr - NPO - Cancel EUS originally scheduled OP tomorrow. - Reviewed CT images w reading Radiologist (Dr. Lexa Escamilla): liver masses are small and not likely able to be biopsies via percutaneous route - Recommend Palliative Care consult to discuss w pt his goals of care. If he would still like to consider cancer treatment options or if Oncology would like tissue dx of pancreas mass, will reschedule EUS - May continue anticoagulation for now - Symptomatic management otherwise Supervising Physician Co-Signing Physician Notes Attending attestation I have seen, examined this patient, and agree with the findings and above by our mid-level provider VIOLET Suazo, with the following additions: Unfortunately appears that he said progression of his disease and or possibly a new primary. T treat pancreatitis conservatively at this time. Then determine patients and care teams desire for repeat biopsy. History of Present Illness Reason for Consultation: Pancreatitis Requesting Physician: Dr. Jovanna Mckeon Attending Physician: Dr. Rajinder Connors History of Present Illness Patient is a 56 years old male with history of RYGB, small cell lung cancer, with multiple metastasis sites including brain and possibly pancreas who presented yesterday with complaints of chest pain and abdominal pain. He denies any associated fevers, chills, has some nausea but no vomiting. Upon evaluation he was noted to have normal LFTs but elevated lipase levels with CT abdomen and pelvis showing signs of 3 cm pancreatic mass lesion suspected to be pancreatic metastasis, pancreatic tail appears edematous with surrounding inflammation increase fluids suspected to be related to acute pancreatitis, worsening upper abdominal lymphadenopathy, also multifocal hepatic metastatic disease. Pt was scheduled for OP EGD/EUS w FNA of pancreas lesion tomorrow by Dr. Gamino at [facility]. He was on Eliquis for hx of PEs, last dose yesterday. On exam today, he is complaining of diffuse abdominal pain, not relieved with current morphine and oxycodone. No nausea but poor appetite. + 1/2 PPD tobacco use, no ETOH. Allergies Allergy/AdvReac Type Severity Reaction Status Date / Time codeine Allergy Unknown "no idea, Verified 05/19/22 20:23 was told as a child" Home Medications Medication Instructions Recorded Confirmed Type apixaban 5 mg (74 tabs) tablets in 5 mg PO BID #74 ea 10/27/21 05/19/22 Rx a dose pack (Eliquis) gabapentin 300 mg capsule 300 mg PO .AM & AFTERNOON 12/29/21 05/19/22 History lisinopril 20 mg tablet 20 mg PO QAM 01/01/22 05/19/22 History meclizine 25 mg tablet 25 mg PO TID PRN Dizziness Or 01/01/22 05/19/22 History Vertigo albuterol sulfate 90 mcg/actuation 1 inh inhalation QID PRN Shortness 05/19/22 05/19/22 History aerosol inhaler Of Breath Or Wheezing aluminum-mag hydroxide-simethicone 5 ml PO Q6H PRN Gi Upset 05/19/22 05/19/22 History 400 mg-400 mg-40 mg/5 mL oral susp (Mylanta Maximum Strength) famotidine 20 mg tablet 20 mg PO DAILY 05/19/22 05/19/22 History gabapentin 300 mg capsule 600 mg PO HS 05/19/22 05/19/22 History morphine 15 mg immediate release 15 mg PO BID 05/19/22 05/19/22 History tablet pantoprazole 40 mg tablet,delayed 40 mg PO QAM 05/19/22 05/19/22 History release trazodone 50 mg tablet 50 mg PO HS 05/19/22 05/19/22 History Patient History Medical History (Updated 05/20/22 @ 13:10 by VIOLET Hernandez) Atrial fibrillation REASON FOR ELIQUIS>DENIES HAVING CARDS Brain metastases Chronic obstructive pulmonary disease Diabetes mellitus, type 2 NO MEDS Dizziness History of COVID-19 ? 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- CHEMO AND RADIATION>NO SURGERY Neuropathy Poor intravenous access Pulmonary embolism "IN MY RT LUNG NOW" Sleep apnea NO DEVICE Surgical History H/O gastric bypass 2014 & REVISED 2017 History of esophagogastroduodenoscopy (EGD) History of mandibular surgery History of tonsillectomy History of tooth extraction History of vascular access device A PORT LEFT CHEST Hx of lymph node excision from leg Family History Father Diabetes Heart disease Cancer Stomach Ca Hypertension Stroke Mother Diabetes Brother Diabetes Other Asthma Emphysema lung Lung disease No family history of adverse response to anesthesia No known problems Social History Smoking Status: Current every day smoker Tobacco Type: Cigarettes packs per day: 0.5; Years Smoked: 45; Cigarettes Per Day: 5; Second Hand Exposure: No; Hx Alcohol Use: No Hx Substance Use: No Preferred Language: Yi Communication Ability: Effective Visual Impairment: No Limitations Hearing Ability: Normal Needle Straightener Required: No Beliefs That Will Affect Care: None marital status: Current Living Situation: Family Current Living Situation Comment: and grandson current occupational status: unemployed How many Children do You have: 3 Other Information That Helps Us Care for You: No Feels Safe at Home: Yes Safety Concerns: Feels Safe At This Time Childhood Exposure to Second-Hand Smoke: Yes caffeine: No during the past year weight has: increased > 10 lbs Dental Care, Regularly: No Physical Activity Frequency: Daily Assistive Devices: Walker Review of Systems Review of Systems: All systems reviewed & are unremarkable except as noted in HPI & below Physical Exam Constitutional: WD/WN, vitals as above + acute distress (c/o diffuse abd pain ), well groomed and cooperative Eyes: PERRL, conjunctivae normal, anicteric sclerae ENMT: external ear and nose normal, oropharynx normal Respiratory: normal respiratory effort, lungs clear to auscultation Cardiovascular: RRR, no murmur, no edema Gastrointestinal (Abdomen): TTP mostly on LUQ areas, soft, BS hypoactive Skin: no rashes, warm and dry no jaundice Psychiatric: A+Ox3, euthymic affect Lymphatic: no lymphedema Results & Data ([facility]) Vital Signs (Past 12 Hours) Vital Signs Temp Pulse Pulse Resp BP BP Pulse Ox 05/20/22 07:33 36.7 C 52 L 132/82 98 09/07/22 23:50 05/19/22 23:50 36.7 C 61 18 102/67 99 05/19/22 23:35 68 20 97/60 L 96 O2 Del Method 05/20/22 07:33 05/19/22 23:50 Room Air 05/19/22 23:50 Room Air 05/19/22 23:35 Room Air (1) Acute pancreatitis Acute pancreatitis complication: unspecified Pancreatitis type: unspecified pancreatitis type Qualified Code(s): K85.90 - Acute pancreatitis without necrosis or infection, unspecified
[2022-05-20 12:24] LABS: Partial Thromboplastin Ratio 2.3
[2022-05-20 12:31] LABS: Partial Thromboplastin Time 64.6 Seconds (21.0-31.0)
[2022-05-20] MEDS: HYDROmorphone INJ 1 MG/ML SYRINGE IV PRN ×2 (12:33→18:38)
--- NOTE | 2022-05-20 13:00 | Hospitalist Progress Note ---
Date of Service May 20, 2022 Assessment & Plan (1) Acute pancreatitis: (2) Mass of pancreas: (3) Hepatic metastasis: Plan: 56 year old male with PMH pulmonary embolism on Eliquis, small cell lung cancer with brain mets status post chemoradiation, COPD, hypertension, DM2 diet- controlled, history gastric bypass, chronic anemia (baseline hemoglobin 11-12), chronic pain on narcotics, ongoing tobacco abuse who presented on 05/19 due to worsening abdominal pain. Patient had surveillance CT scan on 04/26 showing new suspicious subpleural 2.7 cm nodule within the left lower lobe with a 6 mm solid nodular component, 2.9 cm pancreatic body mass, New pathologic upper abdominal lymphadenopathy is also suspicious for metastatic disease. Patient scheduled for outpatient EUS for pancreatic mass biopsy on 05/21. Admitting CT abd/pelvis on 05/19: Again seen is an ill-defined mass lesion in the pancreatic body this is similar to the 04/26/2022 examination. This favors a pancreatic metastasis. The pancreatic tail appears edematous with surrounding inflammation and trace fluid. Correlate with clinical findings and serum amylase/lipase levels for evidence of acute pancreatitis. Upper abdominal lymphadenopathy has modestly worsened as compared 04/26/2022. There is evidence of multifocal hepatic metastatic disease. This is new from 04/26/2022. NPO, LR @ 200/hr GI consult Pain control -- previous to admission patient was on Morphine 15mg ER BID and Morphine 15mg IR TID for breakthrough pain. Follows with pain clinic in [place]. Patient states this pain regimen is not working for him. States that he was on fentanyl patches in the past that he found helpful. Consider transitioning ER morphine to Fentanyl patch. Palliative consult also placed. IV Dilaudid for breakthrough pain. Discussed with Patti Werner PA-C at [facility]. States that a biopsy is needed to determine if recurrent metastatic small cell cancer or new primary malignancy and that patient likely would be eligible for treatment. States that she also would manage patient's pain medication regimen after discharge. EUS/FNA biopsy pancreatic mass tentatively rescheduled on 06/03 at [facility] as an outpatient. GI discussed possible liver lesion biopsy with radiology however l esions are too small and not accessible percutaneously. (4) Small cell lung cancer: Plan: Hx of with brain mets s/p chemoradiation (5) History of pulmonary embolism: Plan: On Eliquis Was placed on IV heparin on admission due to possible GI procedure. No proc edures planned at this time, will DC IV heparin and resume Eliquis. (6) Hypertension: Plan: Due to borderline low BP on admission, home Lisinopril was reduced to 5mg daily from 20mg BP acceptable, continue current dose of Lisinopril (7) Diabetes mellitus, type 2: Plan: Diet controlled, hgb a1c 6.4 01/2022 Novolog per protocol whole hospitalized (8) DVT prophylaxis: Plan: Heparin/Eliquis Admission and Anticipated Discharge Date Admission Date: May 19, 2022 Supervising Physician Co-Signing Physician Notes Pt was seen and examined. Agreed with Patti LAZO exam, assessment and plan. Pt continues to have severe abdominal pain. CT abd/pelvis showed pancreatic tail appears edematous with surrounding inflammation and trace fluid suggested acute pancreatitis. Currently NPO for now. Continue IV fluid and pain control. Gastro on board consider to perform upper endoscopy with endoscopic ultrasound tomorrow in hopes of identifying his liver masses or pancreatic mass. Continue monitor closely. MD Mike Subjective Follow up for pancreatitis. Patient reports ongoing LUQ abdominal pain. States he has had a very poor appetite for the past several weeks. Pain seems to be worsened with eating. Denies nausea and vomiting. No diarrhea. Denies chest pain and shortness of breath. Review of Systems Review of Systems: ROS per HPI, all other systems reviewed and negative Physical Exam Constitutional: WD/WN, vitals as above Respiratory: normal respiratory effort, lungs clear to auscultation Cardiovascular: Rate/Rhythm: regular rate and regular rhythm Vessels: normal peripheral pulses Extremities: no edema Gastrointestinal (Abdomen): Inspection/Auscultation: abdomen not distended Percussion/Palpation: + abdomen tender (LUQ) and abdomen soft Skin: no rashes, warm and dry Neurologic: no focal motor deficits Psychiatric: A+Ox3, euthymic affect Results & Data Results & Data ([facility]) Vital Signs (Past 12 Hours) Vital Signs Temp Pulse BP Pulse Ox O2 Del Method 05/20/22 11:04 36.4 C L 44 L 141/92 H 97 05/20/22 08:30 Room Air 05/20/22 07:33 36.7 C 52 L 132/82 98 Laboratory Results Short CBC 05/19/22 05/20/22 Range/Units 17:07 04:44 WBC 4.74 L 4.29 L (4.8-10.8) K/ul Hgb 11.1 L 10.9 L (14.0-18.0) g/dl Hct 33.7 L 33.2 L (40.1-51.0) % Plt Count 216 215 (130-400) K/uL BMP 05/19/22 05/20/22 17:07 04:44 Sodium 137 137 Potassium 4.1 4.0 Chloride 107 108 H Carbon Dioxide 23 25 BUN 9 10 Creatinine 0.83 0.89 Glucose 90 77 Calcium 8.4 L 8.2 L Liver Function 05/19/22 05/20/22 Range/Units 17:07 04:44 Total Bilirubin 0.5 0.5 (0.2-1.0) mg/dl AST 13 10 L (13-39) U/L ALT 8 6 L (7-52) U/L Alkaline Phosphatase 73 65 (34-104) U/L Albumin 3.3 L 2.8 L (3.4-5.0) gm/dl (1) Acute pancreatitis Acute pancreatitis complication: unspecified Pancreatitis type: unspecified pancreatitis type Qualified Code(s): K85.90 - Acute pancreatitis without necrosis or infection, unspecified
--- NOTE | 2022-05-20 13:06 | Electrocardiogram Report ---
Test Reason : Blood Pressure : / mmHG Vent. Rate : 082 BPM Atrial Rate : 082 BPM P-R Int : 140 ms QRS Dur : 078 ms QT Int : 378 ms P-R-T Axes : 057 023 075 degrees QTc Int : 441 ms Normal sinus rhythm Low voltage QRS Nonspecific T wave abnormality When compared with ECG of 23-OCT-2021 09:27, No significant change was found Confirmed by José Miguel Ventura ([id number]) on 05/20/2022 1:06:04 PM Referred By: REFERRED SELF Confirmed By:José Miguel Ventura
[2022-05-20] MEDS: HEPARIN SODIUM/DEXTROSE 25,000 UNITS/500 ML BAG IV SCH (13:42)
--- NOTE | 2022-05-20 16:51 | Electrocardiogram Report ---
Test Reason : Blood Pressure : / mmHG Vent. Rate : 052 BPM Atrial Rate : 052 BPM P-R Int : 150 ms QRS Dur : 084 ms QT Int : 454 ms P-R-T Axes : 037 018 066 degrees QTc Int : 422 ms Sinus bradycardia Otherwise normal ECG When compared with ECG of 19-MAY-2022 16:56, Vent. rate has decreased BY 30 BPM Confirmed by Miki Cooper ([id number]) on 05/20/2022 4:50:33 PM Referred By: REFERRED SELF Confirmed By:Pawel Cooper
[2022-05-20] MEDS: DEXTROSE 50% 50 ML SYRINGE IV PRN ×2 (18:17→18:41)
[2022-05-21] MEDS: INSULIN ASPART PER UNIT SC SCH ×5 (00:10→21:29)
[2022-05-21] MEDS: HYDROmorphone INJ 1 MG/ML SYRINGE IV PRN ×4 (00:26→20:19)
[2022-05-21] MEDS: D5W AND LACTATED RINGERS 1,000 ML IV SCH ×3 (00:26→13:35)
[2022-05-21] MEDS ORDERED: LORazepam 0.5 MG TAB PO PRN (02:26)
[2022-05-21 05:37] LABS: Hematocrit (blood only) 32.5 % (40.1-51.0); Hemoglobin 10.7 g/dl (14.0-18.0); Mean Corpuscular Hemoglobin 29.4 pg (25.0-34.0); Mean Corpuscular Hgb Conc 32.9 g/dL (32.0-36.0); Mean Corpuscular Volume 89.3 fL (80.0-100.0); Mean Platelet Volume 9.5 fL (9.4-12.4); Platelet Count 189 K/uL (130-400); RDW Coefficient of Variation 14.5 % (11.5-14.5); RDW Standard Deviation 46.9 fL (36.4-46.3); Red Blood Count 3.64 M/uL (4.63-6.08); White Blood Count 4.03 K/ul (4.8-10.8)
[2022-05-21 05:56] LABS: Partial Thromboplastin Ratio 1.2; Partial Thromboplastin Time 32.8 Seconds (21.0-31.0)
[2022-05-21 06:06] LABS: Albumin Globulin Ratio 1.2 (0.9-2); Albumin Level 2.9 gm/dl (3.4-5.0); BUN Creatinine Ratio 9.5 (10-20); Bilirubin,Total 0.6 mg/dl (0.2-1.0); Calcium 8.4 mg/dl (8.5-10.1); Creatinine Clr Calc Pharmacy 133.9 ml/min; Est GFR (African American) 118.7 ml/min; Est GFR (Non-African American) 102.4 ml/min; Globulin 2.4 gm/dl (2.5-4.0); Potassium 3.8 mmol/L (3.5-5.1); Total Protein 5.3 gm/dl (6.0-8.3)
--- NOTE | 2022-05-21 08:26 | Gastroenterology Progress Note ---
Date of Service May 21, 2022 Assessment & Plan (1) Acute pancreatitis: (2) Mass of pancreas: (3) Hepatic metastasis: (4) Small cell lung cancer in adult: Plan: Pt is a 56 yo male w hx of RYGB, SC lung ca w brain and suspected liver, pancreas mets currently admitted w CP, abd pain symptoms. On eval noted to have normal LFTs, but elevated lipase and CT evidence of peripancreatic edema & inflammation likely related to pancreatitis. - Heparin held - LR @ 150ml/hr - NPO for EUS today by Dr. Chago Pennington w bx of liver lesions/pancreas mass - Symptomatic management otherwise - Further recs after EUS completed Admission and Anticipated Discharge Date Admission Date: May 19, 2022 Supervising Physician Co-Signing Physician Notes I saw and evaluated the patient. We are planning to perform upper endoscopy with endoscopic ultrasound today in hopes of identifying his liver masses or pancreatic mass. We did discuss increased complexity of his examination due to his postsurgical anatomy. Risks of the procedure include bleeding infection perforation pain, pancreatitis, insufficient cellularity and need for follow-up exams. Subjective Pt reports abd pain is improved with Dilaudid for about 4 hours. Can't get much sleep last night. Denies CP, SOB, n/v otherwise. Review of Systems Review of Systems: All systems reviewed & are unremarkable except as noted in HPI & below Physical Exam Constitutional: WD/WN, vitals as above well groomed, cooperative and comfortable Eyes: PERRL, conjunctivae normal, anicteric sclerae ENMT: external ear and nose normal, oropharynx normal Respiratory: normal respiratory effort, lungs clear to auscultation Cardiovascular: RRR, no murmur, no edema Gastrointestinal (Abdomen): Soft, BS hypoactive, nontender Skin: no rashes, warm and dry no jaundice Psychiatric: A+Ox3, euthymic affect Lymphatic: no lymphedema Results & Data ([facility]) Vital Signs (Past 12 Hours) Vital Signs Temp Pulse Resp BP Pulse Ox O2 Del Method 05/21/22 07:20 Room Air 05/21/22 07:11 36.6 C 53 L 18 137/88 92 Room Air 05/20/22 23:21 36.5 C 55 L 16 173/93 H 97 Room Air 05/20/22 20:45 Room Air (1) Acute pancreatitis Acute pancreatitis complication: unspecified Pancreatitis type: unspecified pancreatitis type Qualified Code(s): K85.90 - Acute pancreatitis without necrosis or infection, unspecified
[2022-05-21] MEDS: GABAPENTIN 300 MG CAP PO SCH ×3 (09:22→20:19)
[2022-05-21] MEDS: MoRPHine SULFATE CR 15 MG TABCR PO SCH (09:22)
[2022-05-21] MEDS: lisinopril 5 MG TAB PO SCH (09:22)
--- NOTE | 2022-05-21 11:29 | Anesthesiology Consultation ---
Date of Service May 21, 2022 Assessment & Plan Chart Review Chart Review: Acceptable Risk for Surgery and Patient NOT seen in Pre Admission Testing Consults Requested none ASA ASA4 Proposed Anesthesia Anesthesia Type: General Risk / Benefits Reviewed With: PT / POA / Parent / Guardian, Accepts Plan and Informed Consent Obtained History Surgery Operation Date: 05/21/22 08:25 Proposed Procedures p Endoscopic Ultrasonography Rosita - Chago Pennington, Height/Weight Height: 5 ft 11 in Weight: 102 kg Allergies Allergy/AdvReac Type Severity Reaction Status Date / Time codeine Allergy Unknown "no idea, Verified 05/19/22 20:23 was told as a child" Medications Home Medications Medication Instructions Recorded Confirmed Last Taken apixaban 5 mg (74 tabs) tablets in 5 mg PO BID #74 ea 10/27/21 05/19/22 01/03/22 a dose pack (Eliquis) gabapentin 300 mg capsule 300 mg PO .AM & AFTERNOON 12/29/21 05/19/22 01/06/22 lisinopril 20 mg tablet 20 mg PO QAM 01/01/22 05/19/22 01/06/22 meclizine 25 mg tablet 25 mg PO TID PRN Dizziness Or 01/01/22 05/19/22 01/06/22 Vertigo albuterol sulfate 90 mcg/actuation 1 inh inhalation QID PRN Shortness 05/19/22 05/19/22 Unknown aerosol inhaler Of Breath Or Wheezing aluminum-mag hydroxide-simethicone 5 ml PO Q6H PRN Gi Upset 05/19/22 05/19/22 Unknown 400 mg-400 mg-40 mg/5 mL oral susp (Mylanta Maximum Strength) famotidine 20 mg tablet 20 mg PO DAILY 05/19/22 05/19/22 Unknown gabapentin 300 mg capsule 600 mg PO HS 05/19/22 05/19/22 Unknown morphine 15 mg immediate release 15 mg PO BID 05/19/22 05/19/22 Unknown tablet pantoprazole 40 mg tablet,delayed 40 mg PO QAM 05/19/22 05/19/22 Unknown release trazodone 50 mg tablet 50 mg PO HS 05/19/22 05/19/22 Unknown Active Medications Generic Name Dose Route Start Last Admin Trade Name Freq PRN Reason Stop Dose Admin Dextrose 25 - 50 ml 05/19/22 23:55 05/20/22 18:41 Dextrose 50% 50 Ml Syringe IV 06/18/22 23:54 25 ml UD PRN Administration Hypoglycemia Protocol Protocol Gabapentin 300 mg 05/20/22 09:00 05/21/22 09:22 Gabapentin 300 Mg Cap PO 06/19/22 08:59 300 mg DAILY@0900,1400 CAROL Administration Gabapentin 600 mg 05/19/22 23:55 05/20/22 20:47 Gabapentin 300 Mg Cap PO 06/18/22 23:54 600 mg HS CAROL Administration Hydromorphone HCl 1 mg 05/20/22 11:30 05/21/22 06:43 Hydromorphone Inj 1 Mg/Ml Syringe IV 06/03/22 11:29 1 mg Q6H PRN Administration Severe Pain Heparin Sodium/Dextrose 25,000 units in 500 mls @ 29 mls/hr 05/19/22 20:30 05/21/22 00:02 Heparin Sodium/Dextrose IV 06/18/22 20:29 Infused .[id number] CAROL Titration Protocol 1,450 UNITS/HR Dextrose/Lactated Ringer's 1,000 mls @ 150 mls/hr 05/21/22 00:15 05/21/22 06:43 D5w And Lactated Ringers IV 06/20/22 00:14 150 mls/hr .[id number] CAROL Administration Insulin Aspart 0 units 05/20/22 18:00 05/21/22 06:05 Insulin Aspart Per Unit SC 06/19/22 17:59 Not Given Q6 CAROL Lisinopril 5 mg 05/20/22 09:00 05/21/22 09:22 Lisinopril 5 Mg Tab PO 06/19/22 08:59 5 mg QAM CAROL Administration Morphine Sulfate 15 mg 05/19/22 23:55 05/21/22 09:22 Morphine Sulfate Cr 15 Mg Tabcr PO 06/02/22 23:54 Not Given BID CAROL NPO Date Last Intake of Fluids: 05/21/22 Time Last Intake of Fluids: 08:00 Last Intake of Fluids Comment: sip water w/meds Date Last Intake of Solids: 05/19/22 Past Medical History Medical History Atrial fibrillation REASON FOR ELIQUIS>DENIES HAVING CARDS Brain metastases Chronic obstructive pulmonary disease Diabetes mellitus, type 2 NO MEDS Dizziness History of COVID-19 ? 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- CHEMO AND RADIATION>NO SURGERY Neuropathy Poor intravenous access Pulmonary embolism "IN MY RT LUNG NOW" Sleep apnea NO DEVICE Exercise / Class Metabolic Activity III < 4 Walking/Shop/Light housework Past Family History Family History Father Diabetes Heart disease Cancer Stomach Ca Hypertension Stroke Mother Diabetes Brother Diabetes Other Asthma Emphysema lung Lung disease No family history of adverse response to anesthesia No known problems Past Surgical History Surgical History H/O gastric bypass 2014 & REVISED 2017 History of esophagogastroduodenoscopy (EGD) History of mandibular surgery History of tonsillectomy History of tooth extraction History of vascular access device A PORT LEFT CHEST Hx of lymph node excision from leg Past Anesthesia History No Hx of Anesthesia Complications and No Family Hx of Anesthesia Complications History of PONV No Hx of PONV and No Hx of Motion Sickness Social History Smoking Status: Current every day smoker tobacco type: cigarettes Smoking cigarettes per day: 5 Hx Alcohol Use: No alcohol intake frequency: holidays/special occasions only Hx Substance Use: No substance use type: does not use Last Used Substance Other:: HAS [facility] BUT DOES NOT USE Physical Exam Vital Signs Last Vital Signs Temp 37.0 C 05/21/22 10:48 Pulse 56 L 05/21/22 10:48 Resp 18 05/21/22 10:48 BP 161/100 H 05/21/22 10:48 Pulse Ox 98 05/21/22 10:48 O2 Del Method 05/21/22 10:48 Constitutional + obese ENMT Mouth: + dentition abnormality and + edentulous Thyromental Distance: > or= 3.5 Finger Breadths Mallampati Class: II Neck normal visual inspection and trachea midline; neck extension not limited Respiratory normal respiratory effort Auscultation: + diminished lung sounds and + wheezes Cardiovascular Rate/Rhythm: regular rate and regular rhythm Heart Sounds: no murmur Vessels: no carotid bruit Chest (Breasts) Chest: + vascular access device or port Musculoskeletal Spine: normal cervical ROM Extremities: extremities normal to inspection; full ROM of extremities Neurologic moves all extremities Motor/Sensory: no sensory deficit Psychiatric Orientation: alert and oriented x 3 Testing Laboratory Results 05/21/22 05:28 05/21/22 05:28 PT 12.2 Seconds (9.0-12.0) H 05/19/22 17:07 INR 1.2 (0.9-1.1) H 05/19/22 17:07 APTT 32.8 Seconds (21.0-31.0) H 05/21/22 05:28 05/21/22 05/21/22 05/20/22 10:53 06:00 23:59 POC Glucose 76 100 H 77 Electrocardiogram Date: 05/21/22 Findings: + NSR @ (at 61 w/ occas. pvc's and pac's;anterseptal mi,age ?) Chest X-Ray Date: 05/19/22 Findings: + cardiomegaly and + infiltrate (left lung opacities) Echocardiogram Date: 10/24/21 EF: 55% LV Function: normal RWMA: + none Valvular Disease: + no significant valvular disease mild pulm. HTN;mild TR Stress Test Date: 03/30/18 Type: DSE Findings: + WNL
--- NOTE | 2022-05-21 11:34 | History & Physical Bridge Note ---
Date of Service May 21, 2022 History & Physical Bridge Note I have examined the patient, reviewed the History & Physical and in the interval since the performance of the History & Physical I have noted the following changes of clinical significance: no changes noted. We are planning to do upper endoscopy with endoscopic ultrasound today in hopes of identifying a lymph node or perhaps his pancreatic mass. We discussed the increased complexity of his examination given his post surgical history. We discussed the risks to include bleeding infection perforation pain insufficient cellularity and need for surveillance or follow-up examinations.
[2022-05-21] MEDS ORDERED: ONDANSETRON INJ 2 MG/ML 2 ML VIAL IV PRN (11:38)
[2022-05-21] MEDS ORDERED: ePHEDrine sulfate 50 MG/ML AMP IV PRN (11:38)
[2022-05-21] MEDS ORDERED: LIDOCAINE 2% MPF LOCAL 5 ML VIAL INFIL ONE (11:38)
[2022-05-21] MEDS ORDERED: PROMETHAZINE HCL 12.5 MG in SODIUM CHLORIDE 0.9% 50 ML IV PRN (11:38)
[2022-05-21] MEDS ORDERED: PROPOFOL IV EMULSION 10 MG/ML 20 ML VIAL IV ONE (11:38)
[2022-05-21] MEDS ORDERED: LABETALOL HCL IV 5 MG/ML 20ML IV PRN (11:38)
[2022-05-21] MEDS ORDERED: fentaNYL citrate 100 MCG/2 ML VIAL IV PRN (11:38)
[2022-05-21] MEDS ORDERED: FLUMAZENIL 0.1 MG/1 ML 10 ML VIAL IV PRN (11:38)
[2022-05-21] MEDS ORDERED: NALOXONE HCL 0.4 MG/1 ML VIAL/CARP IV PRN (11:38)
[2022-05-21] MEDS ORDERED: ATROPINE SULFATE 0.1 MG/ML 10ML SYR IV PRN (11:38)
[2022-05-21] MEDS ORDERED: SUCCINYLCHOLINE CHLORIDE 20 MG/ML 10 ML VIAL IV ONE (12:05)
[2022-05-21] MEDS ORDERED: ONDANSETRON INJ 2 MG/ML 2 ML VIAL ONE (12:06)
--- NOTE | 2022-05-21 12:45 | Post Operative Brief Note ---
Immediate Post Op Note v1 Date of Surgery May 21, 2022 Pre & Post Diagnosis Operation Date: 05/21/22 08:25 Pre-Op Diagnosis: PANCREATITIS Post-Op Diagnosis: Pancreatic body mass I identified the patient and participated in the time-out.: Yes Procedure Operation Date: 05/21/22 08:25 Actual Procedures p Ultrasound Anesthesia Sedation - Chago Pennington DO s Esophagogastroduodenoscopy - Chago Pennington DO Surgeon Chago Pennington, Intervention Teacher none Estimated Blood Loss 0 Findings Consistent with Post-Op Diagnosis
--- NOTE | 2022-05-21 12:47 | Communication Note ---
Date of Service: May 21, 2022 The patient underwent upper endoscopy and endoscopic ultrasound this morning. We were able to identify a suspicious mass within the pancreatic body. A fine- needle aspiration was performed, results of to likely be available for medical oncology early next week. Please call with any questions or concerns, GI to sign off
--- NOTE | 2022-05-21 12:51 | GI REPORT ---
Patient Name: Jez Melchor Procedure Date: 05/21/2022 11:58 AM Date of : 1965 Admit Type: Inpatient Age: 56 Gender: Male Attending MD: Chago Pennington DO Procedure: Upper GI endoscopy Providers: Chago Pennington DO Referring MD: Patti GILLESPIE Pa-c Indications: Abnormal CT of the GI tract Medicines: General Anesthesia Complications: No immediate complications. Estimated blood loss: Minimal. Estimated Blood Loss: Estimated blood loss was minimal. Procedure: Pre-Anesthesia Assessment: - Prior to the procedure, a History and Physical was performed, and patient medications, allergies and sensitivities were reviewed. The patient's tolerance of previous anesthesia was reviewed. - The risks and benefits of the procedure and the sedation options and risks were discussed with the patient. All questions were answered and informed consent was obtained. - Patient identification and proposed procedure were verified prior to the procedure by the physician, the nurse and the panelboard tank pumper. The procedure was verified in the procedure room. - Pre-procedure physical examination revealed no contraindications to sedation. - ASA Grade Assessment: IV - A patient with severe systemic disease that is a constant threat to life. - After reviewing the risks and benefits, the patient was deemed in satisfactory condition to undergo the procedure. - The anesthesia plan was to use general anesthesia. - Immediately prior to administration of medications, the patient was re-assessed for adequacy to receive sedatives. - The heart rate, respiratory rate, oxygen saturations, blood pressure, adequacy of pulmonary ventilation, and response to care were monitored throughout the procedure. - The physical status of the patient was re-assessed after the procedure. After obtaining informed consent, the endoscope was passed under direct vision. Throughout the procedure, the patient's blood pressure, pulse, and oxygen saturations were monitored continuously. The Endoscope was introduced through the mouth, and advanced to the jejunum. The upper GI endoscopy was accomplished without difficulty. The patient tolerated the procedure well. Findings: The examined esophagus was normal. Evidence of a gastric bypass was found. A gastric pouch with a small size was found. The staple line appeared intact. The gastrojejunal anastomosis was characterized by healthy appearing mucosa. This was traversed. The itifa-cj-nldlvzc limb was characterized by healthy appearing mucosa. The lpyrgrch-wl-jpacppv limb was not examined as it could not be reached. Impression: - Normal esophagus. - Gastric bypass with a small-sized pouch and intact staple line. Gastrojejunal anastomosis characterized by healthy appearing mucosa. - No specimens collected. Recommendation: - Perform an upper endoscopic ultrasound (UEUS) today. Chago Pennington D.O. Chago Pennington, 05/21/2022 12:51:16 PM This report has been signed electronically. Note Initiated On: 05/21/2022 11:58 AM Number of Addenda: 0 I attest to the content of the Intraoperative Record and orders documented therein, exceptions below {[id number]}
--- NOTE | 2022-05-21 12:57 | GI REPORT ---
Patient Name: Jez Melchor Procedure Date: 05/21/2022 12:02 PM Date of : 1965 Admit Type: Inpatient Age: 56 Gender: Male Attending MD: Chago Pennington DO Procedure: Upper EUS Providers: Chago Pennington DO Referring MD: Patti Werner Pa-c, COMPERE WILKERSON Indications: Suspected mass in pancreas on CT scan Medicines: Monitored Anesthesia Care Complications: No immediate complications. Estimated blood loss: Minimal. Estimated Blood Loss: Estimated blood loss was minimal. Procedure: Pre-Anesthesia Assessment: - Prior to the procedure, a History and Physical was performed, and patient medications, allergies and sensitivities were reviewed. The patient's tolerance of previous anesthesia was reviewed. - The risks and benefits of the procedure and the sedation options and risks were discussed with the patient. All questions were answered and informed consent was obtained. - Patient identification and proposed procedure were verified prior to the procedure by the physician, the nurse and the senior clinical research associate. The procedure was verified in the procedure room. - Pre-procedure physical examination revealed no contraindications to sedation. - ASA Grade Assessment: IV - A patient with severe systemic disease that is a constant threat to life. - After reviewing the risks and benefits, the patient was deemed in satisfactory condition to undergo the procedure. - The anesthesia plan was to use general anesthesia. - Immediately prior to administration of medications, the patient was re-assessed for adequacy to receive sedatives. After obtaining informed consent, the endoscope was passed under direct vision. Throughout the procedure, the patient's blood pressure, pulse, and oxygen saturations were monitored continuously. The Endosonoscope was introduced through the mouth, and advanced to the jejunum. The upper EUS was accomplished without difficulty. The patient tolerated the procedure well. Findings: ENDOSONOGRAPHIC FINDING: : An irregular mass was identified in the pancreatic body. The mass was hypoechoic. The mass measured 22 mm by 19 mm in maximal cross-sectional diameter. The outer margins were irregular. Fine needle aspiration for cytology was performed. Color Doppler imaging was utilized prior to needle puncture to confirm a lack of significant vascular structures within the needle path. Five passes were made with the 22 gauge needle using a transgastric approach. A stylet was used. A survey workers supervisor was present to evaluate the adequacy of the specimen. Final cytology results are pending. A few enlarged lymph nodes were visualized in the celiac region (level 20). The largest measured 17 mm by 9 mm in maximal cross-sectional diameter. The nodes were oval, hypoechoic and had well defined margins. Impression: - A 22 mm mass was identified in the pancreatic body. Fine needle aspiration performed. - A few enlarged lymph nodes were visualized in the celiac region (level 20). Recommendation: - Return patient to [facility] for ongoing care. - Await cytology results. Chago Pennington D.O. Chago Pennington, 05/21/2022 12:56:40 PM This report has been signed electronically. Note Initiated On: 05/21/2022 12:02 PM Number of Addenda: 0 I attest to the content of the Intraoperative Record and orders documented therein, exceptions below {[id number]}
--- NOTE | 2022-05-21 13:20 | Anesthesiology Progress Note ---
Date of Service May 21, 2022 Anesthesia Post Procedure Vital Signs Vital Signs: Temp Pulse Pulse Resp BP BP Pulse Ox 05/21/22 13:00 36.9 C 79 19 136/85 94 05/21/22 12:50 81 24 129/87 98 05/21/22 12:40 81 20 120/85 98 05/21/22 12:33 36.7 C 101 H 18 113/82 99 05/21/22 10:48 37.0 C 56 L 18 161/100 H 98 05/21/22 09:22 140/86 05/21/22 07:20 05/21/22 07:11 36.6 C 53 L 18 137/88 92 05/20/22 23:21 36.5 C 55 L 16 173/93 H 97 05/20/22 20:45 05/20/22 16:18 36.8 C 51 L 16 133/79 95 O2 Del Method O2 Flow Rate 05/21/22 13:00 Room Air 05/21/22 12:50 Oxymask 3 05/21/22 12:40 Oxymask 5 05/21/22 12:33 Oxymask 7 05/21/22 10:48 Room Air 05/21/22 09:22 05/21/22 07:20 Room Air 05/21/22 07:11 Room Air 05/20/22 23:21 Room Air 05/20/22 20:45 Room Air 05/20/22 16:18 Room Air Pain Intensity Abdomen: Pain Intensity: 6 Generalized: Pain Intensity: 0 Transfer of Care Handoff Completed per policy Notes Mental Status: alert / awake / arousable Patient Amnestic to Procedure: Yes Nausea / Vomiting: adequately controlled Pain: adequately controlled Airway Patency, RR, SpO2: stable & adequate BP & HR: stable & adequate Hydration State: stable & adequate Anesthetic Complications: no major complications apparent
--- NOTE | 2022-05-21 13:56 | Palliative Care Consultation ---
Date of Consultation May 21, 2022 Assessment & Plan (1) Chest pain: with small cell lung cancer. Discussed with Jez and his in the room. Discussed concern with opioids and sleep apnea. He tells me that he doesn't care if he dies, he just wants the pain controlled. However, when I asked him about his goals of care, he is very clear that he wants any care necessary to prolong his life as long as possible. He does not feel that morphine is effective and would prefer oxycodone. I discussed medications with Dr. Mckeon. Ideally, I think he would benefit from fentanyl patch with prn oxycodone. I am concerned about starting this with known diagnosis of sleep apnea. If he is cleared for opioids, I would recommend fentanyl patch starting at 25mcg with oxycodone 15mg every four hours as needed. He had been on 75OME at home which was not effective and has had 130OME in the last 24 hours here in the hospital. (2) Abdominal pain: pancreatic mass biopsy pending. As above (3) Palliative care encounter: I talked with Jez about his thoughts about hospice. He is interested in hospice from the standpoint of pain management but is not at all interested in a comfort focused approach to his care. He feels that not doing everything possible to live as long as possible would be "stupid". I explained that he would not be able to have cancer treatment while on hospice and that it would not be a good fit for him at this time. (4) Constipation: (5) Small cell lung cancer in adult: (6) Mass of pancreas: (7) Hepatic metastasis: History of Present Illness Reason for Consultation: goals of care, symptom management Requesting Physician: AINSLEY Hernandez Attending Physician: Jovanna Mckeon MD History of Present Illness 56 yo gentleman with history of small cell lung cancer who responded well to previous chemoradiation therapy. He has a history of COPD , diabetes and previous PE. He presented to the hospital with chest pain and abdominal pain. Workup showed a LLL pulmonary nodule and a 2.9 cm pancreatic mass as well as abdominal lymphadenopathy. He is having a of pancreatic mass today. He complains of severe pain which is 6/10 at this time, often 7+/10 in his left abdomen and chest. He has been on multiple medications in the past including fentanyl, oxycodone, and currently morphine IR and ER. He does not feel that morphine is controlling his pain and his confirms this. He feels that oxycodone worked better but he was taking 30mg every four hours. He is very frustrated with pain and has said that he wants to be on hospice so they can control his pain. He says that the pain is keeping from getting sleep and that he often feels short of breath when he is falling asleep. I asked him if he'd been tested for sleep apnea and he said that he was recently diagnosed with sl eep apnea and has an appointment for treatment plan in June. Allergies Allergy/AdvReac Type Severity Reaction Status Date / Time codeine Allergy Unknown "no idea, Verified 05/19/22 20:23 was told as a child" Home Medications Medication Instructions Recorded Confirmed Type apixaban 5 mg (74 tabs) tablets in 5 mg PO BID #74 ea 10/27/21 05/19/22 Rx a dose pack (Exogenesis) gabapentin 300 mg capsule 300 mg PO .AM & AFTERNOON 12/29/21 05/19/22 History lisinopril 20 mg tablet 20 mg PO QAM 01/01/22 05/19/22 History meclizine 25 mg tablet 25 mg PO TID PRN Dizziness Or 01/01/22 05/19/22 History Vertigo albuterol sulfate 90 mcg/actuation 1 inh inhalation QID PRN Shortness 05/19/22 05/19/22 History aerosol inhaler Of Breath Or Wheezing aluminum-mag hydroxide-simethicone 5 ml PO Q6H PRN Gi Upset 05/19/22 05/19/22 History 400 mg-400 mg-40 mg/5 mL oral susp (Mylanta Maximum Strength) famotidine 20 mg tablet 20 mg PO DAILY 05/19/22 05/19/22 History gabapentin 300 mg capsule 600 mg PO HS 05/19/22 05/19/22 History morphine 15 mg immediate release 15 mg PO BID 05/19/22 05/19/22 History tablet pantoprazole 40 mg tablet,delayed 40 mg PO QAM 05/19/22 05/19/22 History release trazodone 50 mg tablet 50 mg PO HS 05/19/22 05/19/22 History Patient History Medical History Atrial fibrillation REASON FOR ELIQUIS>DENIES HAVING CARDS Brain metastases Chronic obstructive pulmonary disease Diabetes mellitus, type 2 NO MEDS Dizziness History of COVID-19 ? 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- CHEMO AND RADIATION>NO SURGERY Neuropathy Poor intravenous access Pulmonary embolism "IN MY RT LUNG NOW" Sleep apnea NO DEVICE Surgical History H/O gastric bypass 2014 & REVISED 2017 History of esophagogastroduodenoscopy (EGD) History of mandibular surgery History of tonsillectomy History of tooth extraction History of vascular access device A PORT LEFT CHEST Hx of lymph node excision from leg Family History Father Diabetes Heart disease Cancer Stomach Ca Hypertension Stroke Mother Diabetes Brother Diabetes Other Asthma Emphysema lung Lung disease No family history of adverse response to anesthesia No known problems Social History Smoking Status: Current every day smoker Tobacco Type: Cigarettes packs per day: 0.5; Years Smoked: 45; Cigarettes Per Day: 5; Second Hand Exposure: No; Hx Alcohol Use: No Hx Substance Use: No Preferred Language: Egyptian Communication Ability: Effective Visual Impairment: No Limitations Hearing Ability: Normal Spray Gun Operator Required: No Beliefs That Will Affect Care: None marital status: Current Living Situation: Family Current Living Situation Comment: and grandson current occupational status: unemployed How many Children do You have: 3 Other Information That Helps Us Care for You: No Feels Safe at Home: Yes Safety Concerns: Feels Safe At This Time Childhood Exposure to Second-Hand Smoke: Yes caffeine: No during the past year weight has: increased > 10 lbs Dental Care, Regularly: No Physical Activity Frequency: Daily Assistive Devices: Walker Review of Systems Review of Systems: ESAS Pain 3/3 Dyspnea 0/3 Fatigue 2/3 Nausea 0/3 Drowsiness 0/3 PPS 50% Physical Exam Constitutional: no acute distress Respiratory: normal respiratory effort; no labored breathing Musculoskeletal: Extremities: extremities normal to inspection Neurologic: awake; not confused Psychiatric: Affect: + angry affect Results & Data ([facility]) Vital Signs (Past 12 Hours) Vital Signs Temp Pulse Pulse Resp BP BP Pulse Ox 05/21/22 13:53 98.4 F 79 12 124/85 94 05/21/22 13:25 98.4 F 84 16 123/79 94 05/21/22 13:00 98.4 F 79 19 136/85 94 05/21/22 12:50 81 24 129/87 98 05/21/22 12:40 81 20 120/85 98 05/21/22 12:33 98.1 F 101 H 18 113/82 99 05/21/22 10:48 98.6 F 56 L 18 161/100 H 98 05/21/22 09:22 140/86 05/21/22 07:20 05/21/22 07:11 97.9 F 53 L 18 137/88 92 O2 Del Method O2 Flow Rate 05/21/22 13:53 Room Air 05/21/22 13:25 Room Air 05/21/22 13:00 Room Air 05/21/22 12:50 Oxymask 3 05/21/22 12:40 Oxymask 5 05/21/22 12:33 Oxymask 7 05/21/22 10:48 Room Air 05/21/22 09:22 05/21/22 07:20 Room Air 05/21/22 07:11 Room Air PG Care Time/CCT Total # of Minutes Spent Total Time Spent: 58 Total Time Spent with Patient: Total time spent is greater than 50% in coordination of care (as documented) at patient's floor/unit and/or counseling patient: symptom management, goals of care, hospice Coding Level of Care Code 11242 Initial Inpt Care Lvl 2 Diagnoses Chest pain R07.9 Abdominal pain R10.9 Palliative care encounter Z51.5 Constipation K59.00 Small cell lung cancer in adult C34.90 Mass of pancreas K86.89 Hepatic metastasis C78.7
--- NOTE | 2022-05-21 15:31 | Hospitalist Progress Note ---
Date of Service May 21, 2022 Assessment & Plan (1) Acute pancreatitis: (2) Mass of pancreas: (3) Hepatic metastasis: Plan: 56 year old male with PMH pulmonary embolism on Eliquis, small cell lung cancer with brain mets status post chemoradiation, COPD, hypertension, DM2 diet- controlled, history gastric bypass, chronic anemia (baseline hemoglobin 11-12), chronic pain on narcotics, ongoing tobacco abuse who presented on 05/19 due to worsening abdominal pain. Patient had surveillance CT scan on 04/26 showing new suspicious subpleural 2.7 cm nodule within the left lower lobe with a 6 mm solid nodular component, 2.9 cm pancreatic body mass, New pathologic upper abdominal lymphadenopathy is also suspicious for metastatic disease. Patient scheduled for outpatient EUS for pancreatic mass biopsy on 05/21. Admitting CT abd/pelvis on 05/19: Again seen is an ill-defined mass lesion in the pancreatic body this is similar to the 04/26/2022 examination. This favors a pancreatic metastasis. The pancreatic tail appears edematous with surrounding inflammation and trace fluid. Correlate with clinical findings and serum amylase/lipase levels for evidence of acute pancreatitis. Upper abdominal lymphadenopathy has modestly worsened as compared 04/26/2022. There is evidence of multifocal hepatic metastatic disease. This is new from 04/26/2022. S/P EUS and FNA biopsy of pancreatic mass today Diet advanced - patient tolerated a small amount of regular food for lunch D/C IVF after current bag GI following Pain control -- previous to admission patient was on Morphine 15mg ER BID and Morphine 15mg IR TID for breakthrough pain. Follows with pain clinic in [place]. Patient states this pain regimen is not working for him. States that he was on fentanyl patches in the past that he found helpful. Palliative consult placed who recommends transitioning to fentanyl patch starting at 25mcg with oxycodone 15mg every four hours as needed. Will make these changes effective 05/22 given the amount of sedation patient received for procedure today. IV Dilaudid for breakthrough pain -- will d/c tomorrow morning with above med changes Updated Patti Werner PA-C at [facility] -- states that she will manage patient's pain medication regimen after discharge. (4) Small cell lung cancer: Plan: Hx of with brain mets s/p chemoradiation (5) History of pulmonary embolism: Plan: On Eliquis prior to admission Heparin bridge started due to GI procedure Per GI, continue heparin this evening and can resume Eliquis tomorrow morning (6) Hypertension: Plan: Due to borderline low BP on admission, home Lisinopril was reduced to 5mg daily from 20mg BP acceptable, continue current dose of Lisinopril (7) Diabetes mellitus, type 2: Plan: Diet controlled, hgb a1c 6.4 01/2022 Hypoglycemic episode noted on 05/20, likely due to poor p.o. intake. Improved after D5 added to IVF and patient received a dose of IV D50. (8) Sleep apnea: Plan: Has PAP titration study on 06/30 Educated patient regarding the importance of treating sleep apnea in the setting of chronic narcotic use (9) DVT prophylaxis: Plan: Heparin/Eliquis Admission and Anticipated Discharge Date Admission Date: May 19, 2022 Supervising Physician Co-Signing Physician Notes Pt was seen and examined. Agreed with Patti LAZO exam, assessment and plan. CT abd/pelvis showed pancreatic tail appears edematous with surrounding inflammation and trace fluid suggested acute pancreatitis. s/p upper endoscopy with endoscopic ultrasound performed today by dr. Pennington. Currently pt looks drowsy because he just came back from the procedure. He said that IV Dilaudid seems to help with the pain. Diet started by GI. Continue IVF for today. palliative care on board and plan to transition to fentanyl patch 25 mcg and oxycodone 15mg q4hr for breakthrough pain. Will resume IV heparin drip later as per GI, then transition to Eliquis possible tomorrow. Continue monitor closely. MD Mike Subjective Follow-up for pancreatitis, pancreatic mass. Patient seen and examined. Underwent EUS and FNA biopsy of pancreatic mass today. Patient somewhat drowsy but able to provide history. States IV Dilaudid is helping his pain. Was able to tolerate a small amount of regular food for lunch. Denies nausea. No chest pain or shortness of breath. Review of Systems Review of Systems: ROS per HPI, all other systems reviewed and negative Physical Exam Constitutional: WD/WN, vitals as above Respiratory: normal respiratory effort; no respiratory distress Auscultation: + diminished lung sounds and + wheezes (scattered expiratory wheezing) Cardiovascular: Rate/Rhythm: regular rate and regular rhythm Vessels: normal peripheral pulses Extremities: no edema Gastrointestinal (Abdomen): Percussion/Palpation: + abdomen tender (LUQ) and abdomen soft Skin: no rashes, warm and dry Neurologic: no focal motor deficits Psychiatric: Orientation: alert (somewhat drowsy but able to participate in conversation) and oriented x 3 Results & Data Results & Data ([facility]) Vital Signs (Past 12 Hours) Vital Signs Temp Pulse Pulse Resp BP BP Pulse Ox 05/21/22 13:53 36.9 C 79 12 124/85 94 05/21/22 14:59 36.8 C 64 16 129/85 95 05/21/22 13:25 36.9 C 84 16 123/79 94 05/21/22 13:00 36.9 C 79 19 136/85 94 05/21/22 12:50 81 24 129/87 98 05/21/22 12:40 81 20 120/85 98 05/21/22 12:33 36.7 C 101 H 18 113/82 99 05/21/22 10:48 37.0 C 56 L 18 161/100 H 98 05/21/22 09:22 140/86 05/21/22 07:20 05/21/22 07:11 36.6 C 53 L 18 137/88 92 O2 Del Method O2 Flow Rate 05/21/22 13:53 Room Air 05/21/22 14:59 Room Air 05/21/22 13:25 Room Air 05/21/22 13:00 Room Air 05/21/22 12:50 Oxymask 3 05/21/22 12:40 Oxymask 5 05/21/22 12:33 Oxymask 7 05/21/22 10:48 Room Air 05/21/22 09:22 05/21/22 07:20 Room Air 05/21/22 07:11 Room Air Laboratory Results Short CBC 05/21/22 Range/Units 05:28 WBC 4.03 L (4.8-10.8) K/ul Hgb 10.7 L (14.0-18.0) g/dl Hct 32.5 L (40.1-51.0) % Plt Count 189 (130-400) K/uL BMP 05/21/22 05:28 Sodium 139 Potassium 3.8 Chloride 107 Carbon Dioxide 28 BUN 7 Creatinine 0.74 Glucose 107 H Calcium 8.4 L Liver Function 05/21/22 Range/Units 05:28 Total Bilirubin 0.6 (0.2-1.0) mg/dl AST 10 L (13-39) U/L ALT 6 L (7-52) U/L Alkaline Phosphatase 75 (34-104) U/L Albumin 2.9 L (3.4-5.0) gm/dl (1) Acute pancreatitis Acute pancreatitis complication: unspecified Pancreatitis type: unspecified pancreatitis type Qualified Code(s): K85.90 - Acute pancreatitis without necrosis or infection, unspecified
[2022-05-21] MEDS: CHECK fentaNYL PATCH PLACEMENT SCH ×2 (16:02→21:31)
[2022-05-21] MEDS ORDERED: Nursing to Pharmacy Communication SCH (17:00)
--- NOTE | 2022-05-21 17:15 | Electrocardiogram Report ---
Test Reason : Blood Pressure : / mmHG Vent. Rate : 062 BPM Atrial Rate : 062 BPM P-R Int : 146 ms QRS Dur : 080 ms QT Int : 418 ms P-R-T Axes : 045 018 064 degrees QTc Int : 424 ms Sinus rhythm with occasional Premature ventricular complexes Anteroseptal infarct , age undetermined Abnormal ECG When compared with ECG of 20-MAY-2022 14:08, Premature ventricular complexes are now Present Confirmed by José Miguel Ventura ([id number]) on 05/21/2022 5:14:51 PM Referred By: REFERRED SELF Confirmed By:José Miguel Ventura
[2022-05-21] MEDS: HEPARIN SODIUM/DEXTROSE 25,000 UNITS/500 ML BAG IV SCH (18:10)
[2022-05-21] MEDS: traZODone HCL 50 MG TAB PO SCH (20:19)
[2022-05-22 01:29] LABS: Partial Thromboplastin Ratio 3.5
[2022-05-22] MEDS: HEPARIN SODIUM/DEXTROSE 25,000 UNITS/500 ML BAG IV SCH ×3 (02:40→13:50)
[2022-05-22 09:00] LABS: Albumin Globulin Ratio 1.2 (0.9-2); Albumin Level 3.1 gm/dl (3.4-5.0); BUN Creatinine Ratio 8.8 (10-20); Bilirubin,Total 0.7 mg/dl (0.2-1.0); Calcium 8.6 mg/dl (8.5-10.1); Creatinine Clr Calc Pharmacy 123.9 ml/min; Est GFR (African American) 114.9 ml/min; Est GFR (Non-African American) 99.2 ml/min; Globulin 2.6 gm/dl (2.5-4.0); Potassium 4.1 mmol/L (3.5-5.1); Total Protein 5.7 gm/dl (6.0-8.3)
[2022-05-22] MEDS ORDERED: fentaNYL 25 MCG/HR TDSY TD SCH (09:00)
[2022-05-22 09:08] LABS: Partial Thromboplastin Ratio 2.1
[2022-05-22] MEDS: CHECK fentaNYL PATCH PLACEMENT SCH ×2 (09:28→15:31)
[2022-05-22] MEDS: INSULIN ASPART PER UNIT SC SCH ×4 (09:29→21:46)
[2022-05-22 09:33] LABS: Partial Thromboplastin Time 56.4 Seconds (21.0-31.0)
[2022-05-22] MEDS: lisinopril 5 MG TAB PO SCH (10:02)
[2022-05-22] MEDS: FAMOTIDINE 20 MG TAB PO SCH (10:03)
[2022-05-22] MEDS: GABAPENTIN 300 MG CAP PO SCH ×3 (10:03→20:34)
[2022-05-22] MEDS: PANTOprazole 40 MG TAB PO SCH (10:03)
--- NOTE | 2022-05-22 17:54 | Hospitalist Progress Note ---
Date of Service May 22, 2022 Assessment & Plan (1) Acute pancreatitis: (2) Mass of pancreas: (3) Hepatic metastasis: Plan: 56 year old male with PMH pulmonary embolism on Eliquis, small cell lung cancer with brain mets status post chemoradiation, COPD, hypertension, DM2 diet- controlled, history gastric bypass, chronic anemia (baseline hemoglobin 11-12), chronic pain on narcotics, ongoing tobacco abuse who presented on 05/19 due to worsening abdominal pain. Patient had surveillance CT scan on 04/26 showing new suspicious subpleural 2.7 cm nodule within the left lower lobe with a 6 mm solid nodular component, 2.9 cm pancreatic body mass, New pathologic upper abdominal lymphadenopathy is also suspicious for metastatic disease. Admitting CT abd/pelvis on 05/19: Again seen is an ill-defined mass lesion in the pancreatic body this is similar to the 04/26/2022 examination. This favors a pancreatic metastasis. The pancreatic tail appears edematous with surrounding inflammation and trace fluid. Correlate with clinical findings and serum amylase/lipase levels for evidence of acute pancreatitis. Upper abdominal lymphadenopathy has modestly worsened as compared 04/26/2022. There is evidence of multifocal hepatic metastatic disease. This is new from 04/26/2022. Gastro on board S/P EUS and FNA biopsy of pancreatic mass done on 05/21 - Follow up biopsy result outpatient Continue pain control with fentanyl patch 25mcg and oxycodone 15mg q4h prn as per palliative care recommendation He Follows with pain clinic in [place], but he said the pain regimen from the pain clinic is not working for him Updated P[place] [facility] [place] that she will manage patient's pain medication regimen after discharge. Tolerated diet Continue monitor (4) Small cell lung cancer: Plan: Hx of with brain mets s/p chemoradiation (5) History of pulmonary embolism: Plan: On Eliquis prior to admission Heparin bridge started due to GI procedure Currently on heparin drip Will resume Eliquis tomorrow morning (6) Hypertension: Plan: Due to borderline low BP on admission, home Lisinopril was reduced to 5mg daily from 20mg BP acceptable, continue current dose of Lisinopril (7) Diabetes mellitus, type 2: Plan: Diet controlled, hgb a1c 6.4 01/2022 Hypoglycemic episode noted on 05/20, likely due to poor p.o. intake. Improved after D5 added to IVF and patient received a dose of IV D50. (8) Sleep apnea: Plan: Has PAP titration study on 06/30 Educated patient regarding the importance of treating sleep apnea in the setting of chronic narcotic use (9) DVT prophylaxis: Plan: Currently on heparin drip Admission and Anticipated Discharge Date Admission Date: May 19, 2022 Subjective Pt was seen and examined for abdominal pain from pancreatitis Lying in bed with no acute distress Pt said that the fentanyl patch seems to work so far Nurse said that he had a large bowel movement today he tolerated his diet Denies any chest pain, palpitation, dizziness and SOB Review of Systems Review of Systems: All systems reviewed & are unremarkable except as noted in Subjective Physical Exam Physical Exam: General- No acute distress Head- atraumatic Eyes- PERRL, EOMI, ENT- oropharynx clear Neck- supple, no JVD Lungs- +diminished BS Heart- regular rhythm; no murmur Abdomen- normal bowel sounds, soft, nontender Extremities- no calf tenderness, +tenderness with deep palpation Neuro- alert, oriented x 3; PERRL, EOMI; no facial palsy; no dysarthria Skin- warm & dry Results & Data Results & Data ([facility]) Vital Signs (Past 12 Hours) Vital Signs Temp Pulse Resp BP Pulse Ox O2 Del Method 05/22/22 15:53 36.8 C 58 L 12 111/74 95 Room Air 05/22/22 09:15 Room Air 05/22/22 10:01 98/56 L 05/22/22 09:57 54 L 101/64 05/22/22 08:03 36.8 C 54 L 19 116/73 93 Room Air 05/22/22 06:46 65 20 95 Room Air (1) Acute pancreatitis Acute pancreatitis complication: unspecified Pancreatitis type: unspecified pancreatitis type Qualified Code(s): K85.90 - Acute pancreatitis without nec rosis or infection, unspecified
[2022-05-22] MEDS: traZODone HCL 50 MG TAB PO SCH (20:34)
--- NOTE | 2022-05-22 22:00 | Communication Note ---
Date of Service: May 22, 2022 Patient with recurrent hypoglycemia as per RN. KERRI diabetic diet. AK ISS if hypoglycemia recurrent. Will relay to AM provider.
[2022-05-23 06:52] LABS: Partial Thromboplastin Ratio 2.1
[2022-05-23] MEDS: CHECK fentaNYL PATCH PLACEMENT SCH ×3 (07:35→16:35)
[2022-05-23] MEDS: HEPARIN SODIUM/DEXTROSE 25,000 UNITS/500 ML BAG IV SCH (08:53)
[2022-05-23] MEDS: lisinopril 5 MG TAB PO SCH (08:59)
[2022-05-23] MEDS: INSULIN ASPART PER UNIT SC SCH ×4 (08:59→20:45)
[2022-05-23] MEDS: GABAPENTIN 300 MG CAP PO SCH ×3 (09:00→20:24)
[2022-05-23] MEDS: FAMOTIDINE 20 MG TAB PO SCH (09:00)
[2022-05-23] MEDS: APIXABAN 5 MG TABLET PO SCH ×2 (09:00→20:24)
[2022-05-23] MEDS: PANTOprazole 40 MG TAB PO SCH (09:00)
--- NOTE | 2022-05-23 16:10 | Hospitalist Progress Note ---
Date of Service May 23, 2022 Assessment & Plan (1) Acute pancreatitis: (2) Mass of pancreas: (3) Hepatic metastasis: Plan: 56 year old male with PMH pulmonary embolism on Eliquis, small cell lung cancer with brain mets status post chemoradiation, COPD, hypertension, DM2 diet- controlled, history gastric bypass, chronic anemia (baseline hemoglobin 11-12), chronic pain on narcotics, ongoing tobacco abuse who presented on 05/19 due to worsening abdominal pain. Patient had surveillance CT scan on 04/26 showing new suspicious subpleural 2.7 cm nodule within the left lower lobe with a 6 mm solid nodular component, 2.9 cm pancreatic body mass, New pathologic upper abdominal lymphadenopathy is also suspicious for metastatic disease. Patient scheduled for outpatient EUS for pancreatic mass biopsy on 05/21. Admitting CT abd/pelvis on 05/19: Again seen is an ill-defined mass lesion in the pancreatic body this is similar to the 04/26/2022 examination. This favors a pancreatic metastasis. The pancreatic tail appears edematous with surrounding inflammation and trace fluid. Correlate with clinical findings and serum amylase/lipase levels for evidence of acute pancreatitis. Upper abdominal lymphadenopathy has modestly worsened as compared 04/26/2022. There is evidence of multifocal hepatic metastatic disease. This is new from 04/26/2022. Gastro on board S/P EUS and FNA biopsy of pancreatic mass done on 05/21 - Follow up biopsy result outpatient Continue pain control with fentanyl patch 25mcg and oxycodone 15mg q4h prn as per palliative care recommendation He Follows with pain clinic in [place], but he said the pain regimen from the pain clinic is not working for him Updated Patti Werner PA-C at [facility] -- states that she will manage patient's pain medication regimen after discharge. Pain control Tolerated diet Continue monitor closely (4) Small cell lung cancer: Plan: Hx of with brain mets s/p chemoradiation (5) History of pulmonary embolism: Plan: On Eliquis prior to admission Heparin drip discontinued, then transition to PO Eliquis (6) Hypertension: Plan: Due to borderline low BP on admission, home Lisinopril was reduced to 5mg daily from 20mg BP acceptable, continue current dose of Lisinopril (7) Diabetes mellitus, type 2: Plan: Diet controlled, hgb a1c 6.4 01/2022 Hypoglycemic episode noted on 05/20, likely due to poor p.o. intake. Improved after D5 added to IVF and patient received a dose of IV D50. Continue monitor BS (8) Sleep apnea: Plan: Has PAP titration study on 06/30 Educated patient regarding the importance of treating sleep apnea in the setting of chronic narcotic use (9) DVT prophylaxis: Plan: on Eliquis Admission and Anticipated Discharge Date Admission Date: May 19, 2022 Subjective Pt was seen and examined for abdominal pain from pancreatitis Sitting in chair with no acute distress Pt said that his pain is better control He was able to walk in the hallway he tolerated his diet Denies any chest pain, palpitation, dizziness and SOB Review of Systems Review of Systems: All systems reviewed & are unremarkable except as noted in Subjective Physical Exam Physical Exam: General- No acute distress Head- atraumatic Eyes- PERRL, EOMI, ENT- oropharynx clear Neck- supple, no JVD Lungs- +faint wheezing Heart- regular rhythm; no murmur Abdomen- normal bowel sounds, soft, nontender Extremities- no calf tenderness, +tenderness with deep palpation Neuro- alert, oriented x 3; PERRL, EOMI; no facial palsy; no dysarthria Skin- warm & dry Results & Data Results & Data ([facility]) Vital Signs (Past 12 Hours) Vital Signs Temp Pulse Resp BP Pulse Ox O2 Del Method 05/23/22 08:57 72 94/65 L 05/23/22 07:11 36.4 C L 68 16 102/69 94 Room Air (1) Acute pancreatitis Acute pancreatitis complication: unspecified Pancreatitis type: unspecified pancreatitis type Qualified Code(s): K85.90 - Acute pancreatitis without necrosis or infection, unspecified
[2022-05-23] MEDS: traZODone HCL 50 MG TAB PO SCH (20:23)
[2022-05-23 22:44] VITALS: O2SAT 94
[2022-05-24] MEDS: CHECK fentaNYL PATCH PLACEMENT SCH ×3 (01:17→15:12)
[2022-05-24] MEDS: oxyCODONE HCL IR 5 MG TAB (IMMEDIATE RELEASE) PO PRN ×2 (05:54→13:23)
[2022-05-24 06:36] LABS: Partial Thromboplastin Ratio 1.4; Partial Thromboplastin Time 37.2 Seconds (21.0-31.0)
[2022-05-24 08:52] VITALS: TEMP 98.2
[2022-05-24] MEDS: APIXABAN 5 MG TABLET PO SCH (08:53)
[2022-05-24] MEDS: GABAPENTIN 300 MG CAP PO SCH ×2 (08:54→13:23)
[2022-05-24] MEDS: lisinopril 5 MG TAB PO SCH (08:54)
[2022-05-24] MEDS: PANTOprazole 40 MG TAB PO SCH (08:54)
[2022-05-24] MEDS: FAMOTIDINE 20 MG TAB PO SCH (08:54)
[2022-05-24] MEDS: INSULIN ASPART PER UNIT SC SCH ×2 (09:04→12:28)
[2022-05-24 15:19] VITALS: BP 109/76; PULSE 68
--- NOTE | 2022-05-25 07:10 | Discharge Summary ---
Date of Service May 24, 2022 Admission HPI Per Admitting Provider History obtained from patient and records. 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 Last confinement October 2021 for pulm embolism. Patient discharged on Eliquis. Outpatient CT chest abdomen pelvis requested by oncology provider as follow-up surveillance study for SCLC resulted 3 weeks ago. 1. Subtle nodular groundglass densities within the right upper lobe are suggestive of an infectious or inflammatory pneumonitis. 2. Mild progression of the groundglass and consolidative left perihilar, left apical and superior segment left lower lobe opacities which are likely posttreatment related however a superimposed infectious or inflammatory pneumonitis would be difficult to exclude. 3. There is a new suspicious subpleural 2.7 cm nodule within the left lower lobe with a 6 mm solid nodular component. Attention at follow-up recommended. 4. 2.9 cm pancreatic body mass, new from 10/25/2021. Based on the time interval, metastatic disease is the primary differential consideration with a primary pancreatic lesion considered less likely. 5. New pathologic upper abdominal lymphadenopathy is also suspicious for metastatic disease. Oncology provider referred patient to GI specialist regarding pancreatic body mass. Outpatient EGD/EUS/possible endoscopic ultrasound directed transgastric ERCP given gastric bypass history contemplated at [facility] 05/21/2022. Patient instructed to hold Eliquis to be held 2 days prior to procedure. 2 weeks ago, patient had worsening pleuritic chest pain with shortness of breath. No unusual cough symptoms. Patient compliant with home medications. Last week, patient experienced progressively worsening achy left-sided abdominal discomfort without black/bloody stools. Usual headache symptoms. Patient consulted ER for evaluation of symptoms. Medical History as above Surgical History : Gastric bypass, mandibular fracture surgery, carpal tunnel surgery, dental surgery Family History : COPD, heart disease, DM, stroke Personal/Social history : 1/2 pack daily, no EtOH intake, disabled Admission Exam Per Admitting Provider GENERAL: Comfortable, episodic lethargy, obese, no respiratory distress SKIN: Pallor, warm HEENT: Alopecia, pale palpebral conjunctivae, no ptosis, dry buccal mucosa NECK : Supple, short neck, no tenderness CHEST : Decreased breath sounds, occasional expiratory wheezes, no tenderness HEART : RRR, no obvious murmurs ABDOMEN: Some distention, upper abdominal tenderness EXTREMITIES : No LE swelling/tenderness, no other conspicuous deformities noted NEUROLOGIC : Coherent, episodic lethargy, no facial asymmetry, no other gross focality Principal Diagnosis Pancreatitis, pancreatic mass Discharge Exam Constitutional WD/WN, vitals as above Respiratory normal respiratory effort, lungs clear to auscultation Cardiovascular Rate/Rhythm: regular rate and regular rhythm Vessels: normal peripheral pulses Extremities: no edema Gastrointestinal (Abdomen) Percussion/Palpation: + abdomen tender (Mild LUQ, much improved from previous exams) and abdomen soft Skin no rashes, warm and dry Neurologic PERRL, EOMI, accommodation nl, no face palsy, no dysarthria Psychiatric A+Ox3, euthymic affect Discharge Data Allergies Allergy/AdvReac Type Severity Reaction Status Date / Time codeine Allergy Unknown "no idea, Verified 05/19/22 20:23 was told as a child" Consultations 05/19/22 23:55 Consult Gastroenterology Routine 05/20/22 11:30 Consult Palliative Care Routine Procedures Performed Operation Date: 05/21/22 08:25 Actual Procedures s Ultrasound Anesthesia Sedation - Chago Pennington DO p Esophagogastroduodenoscopy - Chago Pennington, Ordered Studies Laboratory Results WBC 4.03 K/ul (4.8-10.8) L 05/21/22 05:28 RBC 3.64 M/uL (4.63-6.08) L 05/21/22 05:28 Hgb 10.7 g/dl (14.0-18.0) L 05/21/22 05:28 POC Hgb 10.9 g/dl (14.0-18.0) L 05/19/22 17:12 Hct 32.5 % (40.1-51.0) L 05/21/22 05:28 POC Hct 32 % (42-52) L 05/19/22 17:12 MCV 89.3 fL (80.0-100.0) 05/21/22 05:28 MCH 29.4 pg (25.0-34.0) 05/21/22 05:28 MCHC 32.9 g/dL (32.0-36.0) 05/21/22 05:28 RDW Std Deviation 46.9 fL (36.4-46.3) H 05/21/22 05:28 RDW Coeff of Harris 14.5 % (11.5-14.5) 05/21/22 05:28 Plt Count 189 K/uL (130-400) 05/21/22 05:28 MPV 9.5 fL (9.4-12.4) 05/21/22 05:28 Immature Gran % (Auto) 0.5 % 05/20/22 04:44 Neut % (Auto) 62.6 % 05/20/22 04:44 Lymph % (Auto) 25.9 % 05/20/22 04:44 Austin % (Auto) 7.5 % 05/20/22 04:44 Eos % (Auto) 3.0 % 05/20/22 04:44 Baso % (Auto) 0.5 % 05/20/22 04:44 Neut # (Auto) 2.69 K/uL (1.4-6.5) 05/20/22 04:44 Lymph # (Auto) 1.11 K/uL (1.2-3.4) L 05/20/22 04:44 Austin # (Auto) 0.32 K/uL (0.24-0.82) 05/20/22 04:44 Eos # (Auto) 0.13 K/uL (0-0.50) 05/20/22 04:44 Baso # (Auto) 0.02 K/uL (0-0.2) 05/20/22 04:44 Immature Gran # (Auto) 0.02 K/uL (0.00-0.02) 05/20/22 04:44 PT 12.2 Seconds (9.0-12.0) H 05/19/22 17:07 INR 1.2 (0.9-1.1) H 05/19/22 17:07 APTT 37.2 Seconds (21.0-31.0) H 05/24/22 05:38 PTT Ratio 1.4 05/24/22 05:38 POC Sodium 139 mmol/L (135-144) 05/19/22 17:12 Sodium 136 mmol/L (136-145) 05/22/22 08:22 POC Potassium 4.1 mmol/L (3.3-5.0) 05/19/22 17:12 Potassium 4.1 mmol/L (3.5-5.1) 05/22/22 08:22 POC Chloride 103 mmol/L (101-112) 05/19/22 17:12 Chloride 105 mmol/L (98-107) 05/22/22 08:22 Carbon Dioxide 24 mmol/L (21-32) 05/22/22 08:22 POC Total CO2 23 mmol/L (24-31) L 05/19/22 17:12 Anion Gap 7 (3-11) 05/22/22 08:22 POC Anion Gap 18.0 mmol/L (16-25) 05/19/22 17:12 POC BUN 8 mg/dl (7-18) 05/19/22 17:12 BUN 7 mg/dl (6-23) 05/22/22 08:22 Creatinine 0.80 mg/dl (0.6-1.4) 05/22/22 08:22 POC Creatinine 0.8 mg/dl (0.6-1.3) 05/19/22 17:12 Est Cr Clr Drug Dosing 123.9 ml/min 05/22/22 08:22 Est GFR ( Amer) 114.9 ml/min 05/22/22 08:22 Est GFR (Non-Af Amer) 99.2 ml/min 05/22/22 08:22 BUN/Creatinine Ratio 8.8 (10-20) L 05/22/22 08:22 Glucose 97 mg/dl (70-99(Fasting)) 05/22/22 08:22 POC Glucose 136 mg/dl (70-99) H 05/24/22 12:08 POC Glucose (other) 96 mg/dl (70-99) 05/19/22 17:12 Calcium 8.6 mg/dl (8.5-10.1) 05/22/22 08:22 POC Ioniz Calcium Kim 1.13 mmol/l (1.12-1.32) 05/19/22 17:12 Magnesium 1.8 mg/dl (1.7-2.4) 05/19/22 17:07 Total Bilirubin 0.7 mg/dl (0.2-1.0) 05/22/22 08:22 AST 11 U/L (13-39) L 05/22/22 08:22 ALT 5 U/L (7-52) L 05/22/22 08:22 Alkaline Phosphatase 76 U/L (34-104) 05/22/22 08:22 Troponin I High Sens 2.6 pg/ml (0-20) 05/19/22 17:07 Total Protein 5.7 gm/dl (6.0-8.3) L 05/22/22 08:22 Albumin 3.1 gm/dl (3.4-5.0) L 05/22/22 08:22 Globulin 2.6 gm/dl (2.5-4.0) 05/22/22 08:22 Albumin/Globulin Ratio 1.2 (0.9-2) 05/22/22 08: Lipase 474 U/L (11-82) H 05/21/22 05:28 SARS-CoV-2, RNA, NAAT NEGATIVE (NEGATIVE) 05/19/22 19:00 Impressions Abdomen/Pelvis CT 05/19/22 16:46 CT SCAN OF THE ABDOMEN AND PELVIS WITH IV CONTRAST CLINICAL HISTORY: Generalized abdominal pain. Pancreatic cancer. COMPARISON STUDY: Abdominal CT dated 04/26/2022. TECHNIQUE: Following the IV administration of 93 cc of Optiray 300, CT scan of the abdomen and pelvis is performed from the lung bases to the proximal femora. Images are reviewed in the axial, sagittal, and coronal planes. IV contrast was administered without complication. A dose lowering technique was utilized adhering to the principles of ALARA. CT DOSE: 715.34 mGy.cm FINDINGS: Lung bases: The 2 cm infusion port terminates at the cavoatrial junction. The heart is mildly enlarged and without pericardial effusion. There is trace left pleural effusion with associated atelectasis. The lung bases are otherwise clear. Liver: The contrast-enhanced liver is normal in size, contour, and attenuation. There is no intrahepatic biliary ductal dilatation. The hepatic veins and portal veins are patent. There are numerous subtle tiny low-attenuation hepatic lesions scattered throughout both lobes. These measure up to 1.6 cm and are new from 04/12. These are highly suspicious for hepatic metastatic lesions. Gallbladder: Unremarkable. Spleen: Normal in size and attenuation. Pancreas: There is an approximately 3 cm ill-defined lesion in the pancreatic body seen on image #22. This is similar to previous. There the distal pancreas appears edematous and there is mild peripancreatic infiltration and fluid. The pancreatic duct is normal in caliber. 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 The right adrenal gland is normal in appearance. Kidneys: The contrast enhanced kidneys are normal in size and without hydronephrosis. The kidneys enhance symmetrically. Abdominal vasculature: The abdominal aorta is normal in course and caliber noting moderate to advanced atherosclerotic calcification. Stomach and bowel: Postoperative changes consistent with a history of Jeffrey-en-Y gastric bypass surgery. No bowel obstruction is seen. The appendix is well- visualized and normal. Peritoneum: There is no intraperitoneal free air or abdominal ascites. Lymphadenopathy: An enlarged peripancreatic lymph node on image #104 has increased in size, measuring up to 2.0 cm (previously measured up to 1.6 cm). A 1.6 cm peripancreatic node on image #146 has also modestly increased in size (previously measured 1.5 cm). Pelvic viscera: The bladder, prostate, and seminal vesicles are normal as visualized. Skeletal structures: The skeletal structures are osteopenic. There is mild to moderate lumbosacral spondylosis. Large posterior disc bulges are seen at L4-L5 and L5-S1. No lytic or blastic lesions are seen. IMPRESSION: 1. Again seen is an ill-defined mass lesion in the pancreatic body this is similar to the 04/26/2022 examination. This favors a pancreatic metastasis. 2. The pancreatic tail appears edematous with surrounding inflammation and trace fluid. Correlate with clinical findings and serum amylase/lipase levels for evidence of acute pancreatitis. 3. Upper abdominal lymphadenopathy has modestly worsened as compared 04/26/2022. 4. There is evidence of multifocal hepatic metastatic disease. This is new from 04/26/2022. 5. Cardiomegaly and trace left pleural effusion. This is unchanged. 5. Additional findings as above. ACT 112: Negative or not required by law. Electronically signed by: Lexa Escamilla M.D. 05/19/2022 6:07 PM Chest X-Ray 05/19/22 16:46 XR chest 1V portable HISTORY: 56 years-old Male weakness acute weakness COMPARISON: Chest CT 04/26/2022 TECHNIQUE: Portable AP view of the chest FINDINGS: Cardiac silhouette is enlarged. Left subclavian Asbzuq-m-Wedd catheter distal tip terminates within the right atrium. No pneumothorax or overt pulmonary edema. Unchanged small left pleural effusion with left hemidiaphragmatic elevation. Consolidative opacities of the left lung redemonstrated, most pronounced within the apex. Degenerative changes of the shoulders and spine. IMPRESSION: 1. Cardiomegaly without pulmonary edema. 2. Unchanged small left pleural effusion along with left lung consolidative opacities. ACT 112: Negative or not required by law. The above report was generated using voice recognition software. It may contain grammatical, syntax or spelling errors. Electronically signed by: Fredo De La Rosa M.D. 05/19/2022 5:44 PM Chest CTA 05/19/22 20:16 CT angio chest PE protocol CT DOSE: 748.66 mGy.cm HISTORY: 56 years-old Male with cp, sob, hx CA. Acute shortness of breath in a patient with history of lung cancer. TECHNIQUE: Multiple CTA images of the chest were obtained after the intravenous administration of 112 ml Optiray. Coronal and sagittal MIPS were obtained from the axial data set and were submitted for review. All measurements were obtained according to NASCET criteria. A dose lowering technique was utilized adhering to the principles of ALARA. COMPARISON: CT abdomen and pelvis of same day, chest CT 12/09/2020 and 04/26/2022. FINDINGS: CTA: Mild cardiomegaly with small pericardial effusion. Moderate to extensive coronary artery calcifications. Atherosclerosis of the thoracic aorta with 50% luminal narrowing of the innominate artery. Left IJ Cgyank-u-Hecs catheter distal tip terminates within the right atrium. Reflux of contrast into the IVC and hepatic veins. Satisfactory opacification of the pulmonary arterial tree. There are no filling defects identified to suggest thromboembolic disease. CT CHEST: No thyroid nodule or definite new thoracic lymphadenopathy. Small left pleural effusion. There is no pneumothorax. Mild upper lung zone predominant paraseptal emphysema with bronchial wall thickening suggestive of bronchitis. 5 mm solid nodule of the right lung apex on image 214 is new from prior. There is improved aeration of the right upper lobe compared to the prior study. There is progressive irregular consolidation with intermixed groundglass opacities within the left perihilar distributions, apical posterior segment of the left upper lobe and superior segment left lower lobe, this results in narrowing of the adjacent bronchi and pulmonary arterial branches. The previously noted 2.7 cm subsolid nodular density within the left lower lobe has either resolved or is obscured by adjacent consolidation. Pathologic lymph nodes of the upper abdomen are again noted along with a mass within the pancreatic body. Hepatic metastatic disease. Prior Jeffrey-en-Y gastric bypass. Unremarkable soft tissues. No acute fracture or destructive bone lesion. IMPRESSION: 1. Mild cardiomegaly without pulmonary emboli identified. 2. Progression of the consolidative opacities with intermixed groundglass densities within the left perihilar, left apical upper lobe and superior segment left lower lobe with resultant narrowing of the adjacent bronchi and pulmonary arteries. Findings may represent an infectious or inflammatory process, however follow-up is needed to exclude malignancy. 3. Small left pleural effusion. 4. Mild emphysema with bronchial wall thickening suggestive of bronchitis. 5. There is a new 5 mm solid nodule of the right upper lobe. 6. Upper abdominal metastatic disease is further discussed on the CT abdomen and pelvis study of same day. ACT 112: Negative or not required by law. The above report was generated using voice recognition software. It may contain grammatical, syntax or spelling errors. Dictated: 05/20/2022 7:02 AM Transcribed: 05/20/2022 7:40 AM Jessica [id number] [email or web address] Electronically signed by: Fredo De La Rosa M.D. 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 Patient had surveillance CT scan on 04/26 showing new suspicious subpleural 2.7 cm nodule within the left lower lobe with a 6 mm solid nodular component, 2.9 cm pancreatic body mass, New pathologic upper abdominal lymphadenopathy is also suspicious for metastatic disease. Patient scheduled for outpatient EUS for pancreatic mass biopsy on 05/21. Admitting CT abd/pelvis on 05/19: Again seen is an ill-defined mass lesion in the pancreatic body this is similar to the 04/26/2022 examination. This favors a pancreatic metastasis. The pancreatic tail appears edematous with surrounding inflammation and trace fluid. Correlate with clinical findings and serum amylase/lipase levels for evidence of acute pancreatitis. Upper abdominal lymphadenopathy has modestly worsened as compared 04/26/2022. There is evidence of multifocal hepatic metastatic disease. This is new from 04/26/2022. S/P EUS and FNA biopsy of pancreatic mass done on 05/21 - Follow up biopsy result outpatient Pain control -- previous to admission patient was on Morphine 15mg ER BID and Morphine 15mg IR TID for breakthrough pain. Follows with pain clinic in [place]. Patient states this pain regimen is not working for him. Continue pain control with fentanyl patch 25mcg and oxycodone 10mg q6h PRN Updated Patti Werner PA-C at [facility] -- states that she will manage patient's pain medication regimen after discharge. Diet advanced and tolerated (4) Small cell lung cancer: Hx of with brain mets s/p chemoradiation (5) History of pulmonary embolism: Received heparin drip due to GI procedure --transitioned back to [facility] by the time of discharge (6) Hypertension: Due to borderline low BP on admission, home Lisinopril was reduced to 5mg daily from 20mg BP acceptable, continue current dose of Lisinopril (7) Diabetes mellitus, type 2: Diet controlled, hgb a1c 6.4 01/2022 Hypoglycemic episode noted on 05/20, likely due to poor p.o. intake. Improved after D5 added to IVF and patient received a dose of IV D50. Continue monitor BS (8) Sleep apnea: Has PAP titration study on 06/30 Educated patient regarding the importance of treating sleep apnea in the setting of chronic narcotic use Total Time Total Time Spent Total Time Spent (In Minutes): 35 Discharge Plan Discharge Items Patient Disposition: Home - Home Health Services Reason For Visit: Abdominal Pain Discharge Diagnosis: Pancreatitis (inflammation and irritation of the pancreas) Pancreas mass Activity: Resume your previous activity Non-emergency contact: Primary Care Provider and Oncologist Call non-emergency contact if: you have any medication questions and your symptoms worsen Follow-up/Referrals: Patti Werner PA-C [Physician [employer]] - 05/25/22 11:20 am Mansoor Mcdonald MD [Primary Care Provider] - (Date & Time 05/27/2022 10:40 AM Provider Mansoor Mcdonald MD Department Family Medicine [facility] ) Diet: Heart Healthy Addtl Attending Provider Instructions: You were admitted to the hospital for pancreatitis (inflammation and irritation of the pancreas). Your CT scan showed a pancreatic mass and you had a biopsy done of this mass. There were also concerning spots on your liver, lymph nodes, and lungs. You will nee to follow up with your oncologist. For pain control, you were started on a Fentanyl patch 25mcg (to be changed every 3 days) and oxycodone 10mg every 6 hours as needed for breakthrough pain. DO NOT TAKE ANY MORPHINE THAT YOU WERE PREVIOUSLY PRESCRIBED. Your blood pressure was a little low and your Lisinopril was decreased - new dose: Lisinopril 5mg daily It was a pleasure taking care of you. If you need to reach a member of [facility] Hospitalist team at [facility], please call [phone]. VIOLET Hernandez Pending Studies at Discharge: Yes Studies:: Pancreatic mass biopsy Stand-Alone Forms: My [facility], Smoking Cessation Medications and DC Order Prescriptions: New lisinopril [Zestril] 5 mg Tablet 5 mg PO QAM Qty: 30 0RF fentanyl 25 mcg/hr Patch 72 Hour 25 mcg transdermal Q3D Qty: 0 0RF oxycodone 5 mg Tablet 10 mg PO Q6H PRN (Reason: pain, severe) Qty: 0 0RF Continued gabapentin 300 mg capsule 300 mg PO .AM & AFTERNOON meclizine 25 mg Tablet 25 mg PO TID PRN (Reason: Dizziness Or Vertigo) Eliquis 5 mg (74 tabs) tablets,dose pack 5 mg PO BID Qty: 74 0RF gabapentin 300 mg Capsule 600 mg PO HS pantoprazole 40 mg tablet,delayed release (DR/EC) 40 mg PO QAM trazodone 50 mg Tablet 50 mg PO HS famotidine 20 mg Tablet 20 mg PO DAILY albuterol sulfate 90 mcg/actuation Hfa Aerosol Inhaler 1 inh INHALATION QID PRN (Reason: Shortness Of Breath Or Wheezing) alum-mag hydroxide-simeth [Mylanta Maximum Strength] 400-400-40 mg/5 mL Suspension 5 ml PO Q6H PRN (Reason: Gi Upset) Discontinued lisinopril 20 mg Tablet 20 mg PO QAM morphine 15 mg Tablet 15 mg PO TID PRN (Reason: Pain) morphine 15 mg Tablet Extended Release 15 mg PO BID Discharge Orders: Discharge Order (Routine); Ordered 05/24/22 Ordered By: Patti Robison Admission Data Admit Date/Time: 05/19/22 20:18 Attending Provider: Jovanna Mckeon Admit Provider: Steve Alonzo Primary Care Provider: Mansoor Mcdonald Other Providers: Steve Alonzo ; Yeison Benral ; Joao Boucher ; Roxana Holcomb ; Kayla Klein ; Yue Briggs ; Mita Alexandra ; William Mendieta ; Milka Herrera ; Blank Chaudhary ; Rajinder Connors ; Sahil Sofia ; Chago Pennington ; Elly Louie ; Joni Estrada ; Pavel Moreno ; Shira Tamez ; Meggan Cui ; Sloane Chavez ; Anita Ware ; Alberto Gamino ; Rehan Fontana ; Hernán Hathaway ; Naveen Robison ; Doris Lobo ; Ana Dougherty Other Interventions: Discharge Summary Assessment (RN) Last Done: 05/24/22 15:18
== END 2022-05-24 15:38 | disposition home health service (06) | DRG 439 ==
LOC: ED 16:05 → 3E 20:18

== ENCOUNTER 2022-11-16 09:46 | Inpatient (IN) ==
[2022-11-16] MEDS ORDERED: ONDANSETRON INJ 2 MG/ML 2 ML VIAL IV STA (10:01)
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
[2022-11-16] MEDS ORDERED: SODIUM CHLORIDE 0.9% 1000ML 1,000 ML IV SCH (10:15)
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
[2022-11-16] MEDS: HYDROmorphone INJ 1 MG/ML SYRINGE IV PRN ×2 (10:27→11:02)
[2022-11-16 10:39] LABS: iSTAT Creatinine 0.6 mg/dl (0.6-1.3); iSTAT Hemoglobin 11.6 g/dl (14.0-18.0); iSTAT Ionized Calcium 1.18 mmol/l (1.12-1.32)
[2022-11-16] MEDS ORDERED: OPTIRAY 350 100ml IV ONE (10:54)
[2022-11-16 10:58] LABS: Basophils # (auto) 0.02 K/uL (0-0.2); Basophils % (auto) 0.5 %; Eosinophils # (auto) 0.09 K/uL (0-0.50); Eosinophils % (auto) 2.4 %; Hematocrit (blood only) 32.8 % (42.0-52.0); Hemoglobin 11.3 g/dl (14.0-18.0); Immature Granulocytes # (auto) 0.01 K/uL (0.01-0.20); Immature Granulocytes % (auto) 0.3 %; Lymphocytes # (auto) 0.44 K/uL (1.2-3.4); Lymphocytes % (auto) 11.5 %; Mean Corpuscular Hemoglobin 32.3 pg (25.0-34.0); Mean Corpuscular Hgb Conc 34.5 g/dL (32.0-36.0); Mean Corpuscular Volume 93.7 fL (80.0-100.0); Mean Platelet Volume 10.6 fL (9.4-12.4); Monocytes # (auto) 0.37 K/uL (0.11-0.59); Monocytes % (auto) 9.7 %; Neutrophils # (auto) 2.88 K/uL (1.40-6.50); Neutrophils % (auto) 75.6 %; Platelet Count 151 K/uL (130-400); RDW Coefficient of Variation 13.2 % (11.5-14.5); RDW Standard Deviation 45.1 fL (36.4-46.3); White Blood Count 3.81 K/ul (4.8-10.8)
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
[2022-11-16 11:08] LABS: Albumin Globulin Ratio 1.2 (0.9-2); Albumin Level 3.6 gm/dl (3.4-5.0); BUN Creatinine Ratio 10.1 (10-20); Bilirubin,Total 0.6 mg/dl (0.2-1.0); Calcium 9.2 mg/dl (8.5-10.1); Creatinine Clr Calc Pharmacy 124.3 ml/min; Est GFR (African American) 121.3 ml/min; Est GFR (Non-African American) 104.6 ml/min; Potassium 4.1 mmol/L (3.5-5.1); Total Protein 6.6 gm/dl (6.0-8.3)
[2022-11-16 11:15] LABS: Troponin I High Sensitivity 4.4 pg/ml (0-20)
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
[2022-11-16 11:25] LABS: INR 1.2 (0.9-1.1); Partial Thromboplastin Ratio 1.2; Partial Thromboplastin Time 33.6 Seconds (21.0-31.0); Prothrombin Time 12.8 Seconds (9.0-12.0)
--- NOTE | 2022-11-16 12:56 | Electrocardiogram Report ---
Test Reason : Blood Pressure : / mmHG Vent. Rate : 056 BPM Atrial Rate : 258 BPM P-R Int : 000 ms QRS Dur : 072 ms QT Int : 410 ms P-R-T Axes : 000 036 061 degrees QTc Int : 395 ms Sinus bradycardia with frequent Premature ventricular complexes Possible Old Septal infarct (cited on or before 21-MAY-2022) Abnormal ECG When compared with ECG of 21-MAY-2022 11:12, No significant change Confirmed by Artis Agosto ([id number]) on 11/16/2022 12:55:56 PM Referred By: ED Confirmed By:Artis Agosto
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
[2022-11-16] MEDS ORDERED: HYDROmorphone INJ 0.5 MG/0.5 ML SYR IV STA (14:14)
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
[2022-11-16] MEDS ORDERED: POLYETHYLENE (MIRALAX) 17 GM PACK PO PRN (15:12)
[2022-11-16] MEDS ORDERED: ACETAMINOPHEN 325 MG TAB PO PRN (15:12)
[2022-11-16] MEDS ORDERED: MECLIZINE HCL 25 MG TAB PO PRN (15:25)
[2022-11-16] MEDS ORDERED: ALUMINUM/MAGNESIUM/SIMETH (MAALOX MAX) 30 ML UDC PO PRN (15:25)
[2022-11-16] MEDS ORDERED: fentaNYL 25 MCG/HR TDSY TD SCH (15:45)
[2022-11-16] MEDS: CHECK fentaNYL PATCH PLACEMENT SCH (17:02)
[2022-11-16] MEDS: fentaNYL 25 MCG/HR TDSY TD SCH (17:06)
[2022-11-16] MEDS: HYDROmorphone INJ 0.5 MG/0.5 ML SYR IV PRN (17:06)
[2022-11-16] MEDS: fentaNYL 100 MCG/HR TDSY TD SCH (17:06)
[2022-11-16] MEDS: oxyCODONE HCL IR 5 MG TAB (IMMEDIATE RELEASE) PO PRN (20:21)
[2022-11-16] MEDS: GABAPENTIN 300 MG CAP PO SCH (20:23)
[2022-11-16] MEDS: traZODone HCL 50 MG TAB PO SCH (20:23)
[2022-11-16] MEDS: APIXABAN 5 MG TABLET PO SCH (20:44)
[2022-11-17] MEDS: CHECK fentaNYL PATCH PLACEMENT SCH ×3 (00:04→15:39)
[2022-11-17] MEDS: HYDROmorphone INJ 0.5 MG/0.5 ML SYR IV PRN ×2 (00:38→19:40)
[2022-11-17 02:46] LABS: Appearance Urine Clear (Clear); Bilirubin Urine Negative (Negative); Blood Urine Negative (Negative); Color Urine Yellow; Glucose Urine UA Negative (Negative); Ketones Urine Negative (Negative); Leukocyte Esterase Urine Negative (Negative); Nitrite Urine Negative (Negative); Protein Urine Negative (Negative); Specific Gravity Urine 1.014 (1.000-1.030); Urobilinogen Urine Negative (Negative); pH Urine 5.5 (4.5-7.5)
[2022-11-17 06:33] LABS: Hematocrit (blood only) 32.2 % (42.0-52.0); Hemoglobin 10.8 g/dl (14.0-18.0); Mean Corpuscular Hemoglobin 31.7 pg (25.0-34.0); Mean Corpuscular Hgb Conc 33.5 g/dL (32.0-36.0); Mean Corpuscular Volume 94.4 fL (80.0-100.0); Mean Platelet Volume 10.8 fL (9.4-12.4); Platelet Count 125 K/uL (130-400); Red Blood Count 3.41 M/uL (4.70-6.10); White Blood Count 3.15 K/ul (4.8-10.8)
[2022-11-17 06:48] LABS: BUN Creatinine Ratio 10.3 (10-20); Calcium 8.8 mg/dl (8.5-10.1); Creatinine Clr Calc Pharmacy 126.1 ml/min; Est GFR (Non-African American) 105.3 ml/min; Potassium 4.1 mmol/L (3.5-5.1)
[2022-11-17] MEDS: APIXABAN 5 MG TABLET PO SCH ×2 (08:31→19:55)
[2022-11-17] MEDS: GABAPENTIN 300 MG CAP PO SCH ×2 (08:31→19:56)
[2022-11-17] MEDS: PANTOprazole 40 MG TAB PO SCH (08:31)
[2022-11-17] MEDS: oxyCODONE HCL IR 5 MG TAB (IMMEDIATE RELEASE) PO PRN ×4 (08:31→19:41)
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
[2022-11-17] MEDS: traZODone HCL 50 MG TAB PO SCH (19:54)
[2022-11-17] MEDS: ONDANSETRON INJ 2 MG/ML 2 ML VIAL IV PRN (20:10)
[2022-11-18] MEDS: HYDROmorphone INJ 0.5 MG/0.5 ML SYR IV PRN ×3 (01:20→19:40)
[2022-11-18] MEDS: oxyCODONE HCL IR 5 MG TAB (IMMEDIATE RELEASE) PO PRN ×5 (04:25→21:59)
[2022-11-18] MEDS: ONDANSETRON INJ 2 MG/ML 2 ML VIAL IV PRN (04:27)
[2022-11-18 06:32] LABS: Hematocrit (blood only) 32.2 % (42.0-52.0); Hemoglobin 10.9 g/dl (14.0-18.0); Mean Corpuscular Hemoglobin 31.9 pg (25.0-34.0); Mean Corpuscular Hgb Conc 33.9 g/dL (32.0-36.0); Mean Corpuscular Volume 94.2 fL (80.0-100.0); Mean Platelet Volume 11.1 fL (9.4-12.4); Platelet Count 122 K/uL (130-400); RDW Coefficient of Variation 12.8 % (11.5-14.5); Red Blood Count 3.42 M/uL (4.70-6.10); White Blood Count 2.93 K/ul (4.8-10.8)
[2022-11-18 06:47] LABS: Calcium 8.8 mg/dl (8.5-10.1); Creatinine Clr Calc Pharmacy 128.3 ml/min; Est GFR (African American) 118.5 ml/min; Est GFR (Non-African American) 102.2 ml/min
[2022-11-18] MEDS: CHECK fentaNYL PATCH PLACEMENT SCH ×4 (08:09→23:50)
[2022-11-18] MEDS: GABAPENTIN 300 MG CAP PO SCH ×2 (08:10→19:41)
[2022-11-18] MEDS: PANTOprazole 40 MG TAB PO SCH (08:11)
[2022-11-18] MEDS: APIXABAN 5 MG TABLET PO SCH ×2 (08:11→19:42)
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
[2022-11-18] MEDS: traZODone HCL 50 MG TAB PO SCH (19:41)
[2022-11-19] MEDS: HYDROmorphone INJ 0.5 MG/0.5 ML SYR IV PRN ×2 (04:13→19:22)
[2022-11-19] MEDS: oxyCODONE HCL IR 5 MG TAB (IMMEDIATE RELEASE) PO PRN ×2 (05:45→09:24)
[2022-11-19] MEDS: PANTOprazole 40 MG TAB PO SCH (09:20)
[2022-11-19] MEDS: POLYETHYLENE (MIRALAX) 17 GM PACK PO SCH (09:20)
[2022-11-19] MEDS: GABAPENTIN 300 MG CAP PO SCH ×2 (09:20→19:22)
[2022-11-19] MEDS: APIXABAN 5 MG TABLET PO SCH ×2 (09:20→19:22)
[2022-11-19] MEDS: CHECK fentaNYL PATCH PLACEMENT SCH ×3 (09:21→23:33)
[2022-11-19] MEDS: DOCUSATE SODIUM 100 MG CAP PO SCH ×2 (12:01→19:21)
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
[2022-11-19] MEDS: ONDANSETRON INJ 2 MG/ML 2 ML VIAL IV PRN (13:28)
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
[2022-11-19] MEDS: fentaNYL 100 MCG/HR TDSY TD SCH (18:40)
[2022-11-19] MEDS: fentaNYL 25 MCG/HR TDSY TD SCH (18:41)
[2022-11-19] MEDS: traZODone HCL 50 MG TAB PO SCH (19:21)
[2022-11-20] MEDS: HYDROmorphone INJ 0.5 MG/0.5 ML SYR IV PRN ×3 (03:38→18:50)
[2022-11-20] MEDS: oxyCODONE HCL IR 5 MG TAB (IMMEDIATE RELEASE) PO PRN ×3 (06:12→21:59)
[2022-11-20 06:38] LABS: Hematocrit (blood only) 31.3 % (42.0-52.0); Hemoglobin 10.4 g/dl (14.0-18.0); Mean Corpuscular Hemoglobin 31.4 pg (25.0-34.0); Mean Corpuscular Hgb Conc 33.2 g/dL (32.0-36.0); Mean Corpuscular Volume 94.6 fL (80.0-100.0); Mean Platelet Volume 10.7 fL (9.4-12.4); Platelet Count 127 K/uL (130-400); RDW Coefficient of Variation 12.6 % (11.5-14.5); Red Blood Count 3.31 M/uL (4.70-6.10); White Blood Count 2.71 K/ul (4.8-10.8)
[2022-11-20 06:59] LABS: BUN Creatinine Ratio 13.7 (10-20); Calcium 8.7 mg/dl (8.5-10.1); Creatinine Clr Calc Pharmacy 128.3 ml/min; Est GFR (African American) 118.5 ml/min; Est GFR (Non-African American) 102.2 ml/min
[2022-11-20] MEDS: DOCUSATE SODIUM 100 MG CAP PO SCH ×2 (08:33→20:23)
[2022-11-20] MEDS: APIXABAN 5 MG TABLET PO SCH ×2 (08:33→20:23)
[2022-11-20] MEDS: GABAPENTIN 300 MG CAP PO SCH ×2 (08:33→20:23)
[2022-11-20] MEDS: HEPARIN 100 UNIT/ML 5ML FLUSH FLUSH PRN (08:33)
[2022-11-20] MEDS: POLYETHYLENE (MIRALAX) 17 GM PACK PO SCH (08:33)
[2022-11-20] MEDS: PANTOprazole 40 MG TAB PO SCH (08:33)
[2022-11-20] MEDS: CHECK fentaNYL PATCH PLACEMENT SCH ×2 (08:33→16:10)
[2022-11-20] MEDS ORDERED: bisacodyL 5 MG TABEC PO ONE (11:52)
--- NOTE | 2022-11-20 14:56 | XRay Report ---
XR KUB/Abdomen 1 view CLINICAL HISTORY: Constipation TECHNIQUE: 1 view of the abdomen was obtained. Comparison: Comparison is made to CT abdomen pelvis 11/16/2022 FINDINGS: Lung bases are unremarkable. Degenerative changes are seen in the visualized skeleton. The bowel gas pattern is nonobstructive. Numerous gas-distended loops of colon are seen. No definite small bowel ob struction is noted. IMPRESSION: Nonobstructive bowel gas pattern. Extensive gaseous dilation of the colon without evidence of inspiss ation. ACT 112: Negative or not required by law. Electronically signed by: Gil Albarran M.D. 11/20/2022 2:54 PM
[2022-11-20] MEDS ORDERED: SODIUM CHLORIDE 0.9% 1000ML 1,000 ML IV ONE (15:26)
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
[2022-11-20] MEDS: SENNA 8.6 MG TAB PO SCH (20:23)
[2022-11-20] MEDS: traZODone HCL 50 MG TAB PO SCH (21:59)
[2022-11-21] MEDS: CHECK fentaNYL PATCH PLACEMENT SCH ×3 (00:15→17:04)
[2022-11-21] MEDS: HEPARIN 100 UNIT/ML 5ML FLUSH FLUSH PRN ×2 (05:39→14:28)
[2022-11-21 06:43] LABS: Hematocrit (blood only) 28.2 % (42.0-52.0); Hemoglobin 9.6 g/dl (14.0-18.0); Mean Corpuscular Hemoglobin 32.5 pg (25.0-34.0); Mean Corpuscular Volume 95.6 fL (80.0-100.0); Mean Platelet Volume 11.1 fL (9.4-12.4); Platelet Count 120 K/uL (130-400); RDW Coefficient of Variation 12.9 % (11.5-14.5); RDW Standard Deviation 45.2 fL (36.4-46.3); Red Blood Count 2.95 M/uL (4.70-6.10)
[2022-11-21] MEDS: oxyCODONE HCL IR 5 MG TAB (IMMEDIATE RELEASE) PO PRN ×2 (07:42→20:59)
[2022-11-21] MEDS: APIXABAN 5 MG TABLET PO SCH ×2 (08:30→21:29)
[2022-11-21] MEDS: PANTOprazole 40 MG TAB PO SCH (08:30)
[2022-11-21] MEDS: DOCUSATE SODIUM 100 MG CAP PO SCH ×2 (08:30→21:28)
[2022-11-21] MEDS: GABAPENTIN 300 MG CAP PO SCH ×2 (08:30→21:29)
[2022-11-21] MEDS: POLYETHYLENE (MIRALAX) 17 GM PACK PO SCH (08:32)
[2022-11-21 08:37] LABS: BUN Creatinine Ratio 15.2 (10-20); Calcium 8.1 mg/dl (8.5-10.1); Creatinine Clr Calc Pharmacy 141.9 ml/min; Est GFR (African American) 123.5 ml/min; Est GFR (Non-African American) 106.6 ml/min; Magnesium 1.4 mg/dl (1.7-2.4); Potassium 3.8 mmol/L (3.5-5.1)
[2022-11-21] MEDS ORDERED: LACTULOSE SYRUP 20 GM/30 ML UDC PO PRN (10:09)
--- NOTE | 2022-11-21 10:40 | XRay Report ---
KUB CLINICAL HISTORY: Constipation. FINDINGS: An AP, portable, supine abdominal radiograph is compared to study dated 11/20/2022 and corre lated with abdominal CT dated 11/16/2022. [id number]-[id number] fecal retention is seen throughout the colon . No bowel obstruction is identified. There is mild gaseous distention of the colon. No evidence of i ntraperitoneal free air is seen on this supine image. There are no abnormal abdominal calcifications. The bony structures appear intact noting lumbosacral spondylosis. IMPRESSION: Nonobstructed bowel gas pattern noting mild to moderate colonic fecal retention. Electronically signed by: Lexa Escamilla M.D. 11/21/2022 10:39 AM
[2022-11-21] MEDS: MAGNESIUM SULFATE / D5W 1 GM/100 ML BAG IV SCH ×2 (10:49→12:46)
[2022-11-21] MEDS ORDERED: LACTULOSE SYRUP 20 GM/30 ML UDC PO ONE (13:31)
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
[2022-11-21] MEDS: SENNA 8.6 MG TAB PO SCH (21:28)
[2022-11-21] MEDS: traZODone HCL 50 MG TAB PO SCH (21:29)
[2022-11-22] MEDS: CHECK fentaNYL PATCH PLACEMENT SCH ×3 (00:18→15:54)
[2022-11-22] MEDS: HEPARIN 100 UNIT/ML 5ML FLUSH FLUSH PRN ×2 (06:23→11:54)
[2022-11-22] MEDS: oxyCODONE HCL IR 5 MG TAB (IMMEDIATE RELEASE) PO PRN ×3 (06:23→21:04)
[2022-11-22 06:37] LABS: Hematocrit (blood only) 29.3 % (42.0-52.0); Hemoglobin 9.8 g/dl (14.0-18.0); Mean Corpuscular Hemoglobin 31.9 pg (25.0-34.0); Mean Corpuscular Hgb Conc 33.4 g/dL (32.0-36.0); Mean Corpuscular Volume 95.4 fL (80.0-100.0); Mean Platelet Volume 10.2 fL (9.4-12.4); Platelet Count 127 K/uL (130-400); RDW Coefficient of Variation 13.2 % (11.5-14.5); RDW Standard Deviation 45.9 fL (36.4-46.3); Red Blood Count 3.07 M/uL (4.70-6.10); White Blood Count 3.07 K/ul (4.8-10.8)
[2022-11-22 06:53] LABS: BUN Creatinine Ratio 14.1 (10-20); Calcium 8.3 mg/dl (8.5-10.1); Creatinine Clr Calc Pharmacy 146.3 ml/min; Est GFR (African American) 125.1 ml/min; Est GFR (Non-African American) 107.9 ml/min; Magnesium 1.6 mg/dl (1.7-2.4); Potassium 4.1 mmol/L (3.5-5.1)
[2022-11-22] MEDS: MAGNESIUM SULFATE / D5W 1 GM/100 ML BAG IV SCH ×2 (07:54→09:56)
[2022-11-22] MEDS: APIXABAN 5 MG TABLET PO SCH ×2 (08:32→21:07)
[2022-11-22] MEDS: GABAPENTIN 300 MG CAP PO SCH ×2 (08:33→21:05)
[2022-11-22] MEDS: PANTOprazole 40 MG TAB PO SCH (08:33)
[2022-11-22] MEDS: DOCUSATE SODIUM 100 MG CAP PO SCH ×2 (08:33→21:07)
[2022-11-22] MEDS: POLYETHYLENE (MIRALAX) 17 GM PACK PO SCH ×3 (08:35→21:06)
[2022-11-22] MEDS ORDERED: METHYLNALTREXONE BROMIDE 12 MG/0.6 ML VIAL SQ ONE (08:47)
[2022-11-22] MEDS: SODIUM CHLORIDE 0.65% NA SOLN 45 ML (OCEAN) SCH ×2 (09:57→21:05)
[2022-11-22] MEDS ORDERED: fentaNYL 75 MCG/HR TDSY TD SCH (12:00)
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
[2022-11-22] MEDS: SENNA 8.6 MG TAB PO SCH (21:06)
[2022-11-22] MEDS: traZODone HCL 50 MG TAB PO SCH (21:14)
[2022-11-23] MEDS: CHECK fentaNYL PATCH PLACEMENT SCH ×3 (02:13→16:36)
[2022-11-23] MEDS: oxyCODONE HCL IR 5 MG TAB (IMMEDIATE RELEASE) PO PRN ×3 (05:17→20:23)
[2022-11-23] MEDS: SODIUM CHLORIDE 0.65% NA SOLN 45 ML (OCEAN) SCH ×2 (07:49→20:25)
[2022-11-23] MEDS: SENNA 8.6 MG TAB PO SCH ×2 (07:50→20:24)
[2022-11-23] MEDS: POLYETHYLENE (MIRALAX) 17 GM PACK PO SCH ×2 (07:50→20:25)
[2022-11-23] MEDS: GABAPENTIN 300 MG CAP PO SCH ×2 (07:50→20:25)
[2022-11-23] MEDS: DOCUSATE SODIUM 100 MG CAP PO SCH ×2 (07:50→20:23)
[2022-11-23] MEDS: APIXABAN 5 MG TABLET PO SCH ×2 (07:50→20:24)
[2022-11-23] MEDS: PANTOprazole 40 MG TAB PO SCH (07:50)
[2022-11-23 08:43] LABS: BUN Creatinine Ratio 15.3 (10-20); Calcium 8.5 mg/dl (8.5-10.1); Creatinine Clr Calc Pharmacy 158.7 ml/min; Est GFR (African American) 129.3 ml/min; Est GFR (Non-African American) 111.6 ml/min; Magnesium 1.6 mg/dl (1.7-2.4); Potassium 4.1 mmol/L (3.5-5.1)
[2022-11-23] MEDS ORDERED: METHYLNALTREXONE BROMIDE 12 MG/0.6 ML VIAL SQ PRN (09:00)
[2022-11-23] MEDS: MAGNESIUM SULFATE / D5W 1 GM/100 ML BAG IV SCH ×2 (09:41→11:36)
[2022-11-23] MEDS: MAGNESIUM OXIDE 400 MG TAB PO SCH ×2 (10:17→20:24)
[2022-11-23] MEDS ORDERED: bisacodyL 10 MG SUPP PR ONE (11:28)
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
[2022-11-23] MEDS: traZODone HCL 50 MG TAB PO SCH (20:23)
[2022-11-24] MEDS: CHECK fentaNYL PATCH PLACEMENT SCH ×3 (00:01→16:49)
[2022-11-24] MEDS: oxyCODONE HCL IR 5 MG TAB (IMMEDIATE RELEASE) PO PRN ×2 (03:03→07:49)
[2022-11-24] MEDS: SODIUM CHLORIDE 0.65% NA SOLN 45 ML (OCEAN) SCH (07:45)
[2022-11-24] MEDS: MAGNESIUM OXIDE 400 MG TAB PO SCH (07:45)
[2022-11-24] MEDS: PANTOprazole 40 MG TAB PO SCH (07:45)
[2022-11-24] MEDS: APIXABAN 5 MG TABLET PO SCH (07:45)
[2022-11-24] MEDS: GABAPENTIN 300 MG CAP PO SCH (07:45)
[2022-11-24] MEDS: DOCUSATE SODIUM 100 MG CAP PO SCH (07:45)
[2022-11-24] MEDS: POLYETHYLENE (MIRALAX) 17 GM PACK PO SCH (07:45)
[2022-11-24] MEDS: SENNA 8.6 MG TAB PO SCH (07:47)
--- NOTE | 2022-11-24 09:07 | XRay Report ---
KUB HISTORY: constipation COMPARISON: KUB 11/21/2022. FINDINGS: The bowel gas pattern is unremarkable. There are no dilated loops of small bowel to suggest an obstruction. No renal calculi. No ureteral calculi. No pneumoperitoneum or pneumatosis. Moderate to severe fecal retention. Catheter tip is seen within the right atrium. IMPRESSION: Moderate to severe fecal retention. ACT 112: Negative or not required by law. Electronically signed by: Jeremy Crawley M.D. 11/24/2022 9:05 AM
[2022-11-24 09:57] LABS: Base Excess VBG 3.5 mEq/L; HCO3 VBG 29 mmol/L; Oxygen Saturation VBG 71.5 %; PCO2 VBG 47 mmHg (38-50); PO2 VBG 40 mmHg
[2022-11-24 10:03] LABS: Basophils # (auto) 0.02 K/uL (0-0.2); Basophils % (auto) 0.6 %; Eosinophils # (auto) 0.12 K/uL (0-0.50); Eosinophils % (auto) 3.6 %; Hematocrit (blood only) 32.3 % (42.0-52.0); Hemoglobin 10.7 g/dl (14.0-18.0); Immature Granulocytes # (auto) 0.01 K/uL (0.01-0.20); Immature Granulocytes % (auto) 0.3 %; Lymphocytes # (auto) 0.39 K/uL (1.2-3.4); Lymphocytes % (auto) 11.7 %; Mean Corpuscular Hemoglobin 31.9 pg (25.0-34.0); Mean Corpuscular Hgb Conc 33.1 g/dL (32.0-36.0); Mean Corpuscular Volume 96.4 fL (80.0-100.0); Mean Platelet Volume 10.8 fL (9.4-12.4); Monocytes # (auto) 0.23 K/uL (0.11-0.59); Monocytes % (auto) 6.9 %; Neutrophils # (auto) 2.57 K/uL (1.40-6.50); Neutrophils % (auto) 76.9 %; Platelet Count 143 K/uL (130-400); RDW Coefficient of Variation 13.5 % (11.5-14.5); RDW Standard Deviation 47.9 fL (36.4-46.3); Red Blood Count 3.35 M/uL (4.70-6.10); White Blood Count 3.34 K/ul (4.8-10.8)
[2022-11-24 10:16] LABS: Albumin Globulin Ratio 1.2 (0.9-2); Albumin Level 3.2 gm/dl (3.4-5.0); BUN Creatinine Ratio 15.9 (10-20); Bilirubin,Total 0.3 mg/dl (0.2-1.0); Calcium 8.4 mg/dl (8.5-10.1); Creatinine Clr Calc Pharmacy 148.6 ml/min; Est GFR (African American) 125.9 ml/min; Est GFR (Non-African American) 108.6 ml/min; Globulin 2.7 gm/dl (2.5-4.0); Potassium 3.8 mmol/L (3.5-5.1); Total Protein 5.9 gm/dl (6.0-8.3)
[2022-11-24 10:23] LABS: Calcium 8.4 mg/dl (8.5-10.1); Magnesium 1.5 mg/dl (1.7-2.4); Potassium 3.8 mmol/L (3.5-5.1)
[2022-11-24 10:28] LABS: BUN Creatinine Ratio 15.9 (10-20); Creatinine Clr Calc Pharmacy 148.6 ml/min; Est GFR (African American) 125.9 ml/min; Est GFR (Non-African American) 108.6 ml/min
[2022-11-24] MEDS: MAGNESIUM SULFATE / D5W 1 GM/100 ML BAG IV SCH ×2 (11:34→13:11)
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
--- NOTE | 2022-11-24 14:34 | XRay Report ---
XR chest 1V portable CLINICAL HISTORY: infectious w/u. Lung cancer. COMPARISON STUDY: Chest radiograph and chest CT November 16, 2022. FINDINGS: Left internal jugular [id number] is in place. Left lung volume loss is again noted. Ther e is no pneumothorax or pleural effusion. Left upper lung airspace opacity has mildly increased. Card iomegaly is unchanged. There is no evidence for pulmonary edema. IMPRESSION: Slight increase in left upper lung airspace opacity. This could reflect posttreatment ch joyce and atelectasis. However, a superimposed pneumonia cannot be excluded. Continued radiographic fo llow-up is recommended. ACT 112: Negative or not required by law. Electronically signed by: Slim Valdez M.D. 11/24/2022 2:32 PM
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
[2022-11-24 15:12] VITALS: PULSE 64; TEMP 98.2; O2SAT 96
[2022-11-24 15:52] VITALS: BP 98/51
[2022-11-24] MEDS ORDERED: MAGNESIUM OXIDE 400 MG TAB PO SCH (21:00)
== END 2022-11-24 17:01 | disposition home health service (06) | DRG 605 ==
LOC: ED 09:46 → 4W 09:46 → SUATTDRO 15:13 → 4W 16:20 → 3W 11-18 18:26